=== PATIENT | male | born 2000 | race Caucasian/White ===

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

== ENCOUNTER 2019-02-17 18:46 | Inpatient (IN) | payer OTHER ==
[2019-02-17] MEDS ORDERED: IPRATROPIUM-ALBUTEROL 3 ML NEB INHALATION STA (19:20)
[2019-02-17] MEDS ORDERED: SODIUM CHLORIDE 0.9% 1,000 ML IV STA ×2 (19:20→20:33)
--- NOTE | 2019-02-17 19:31 | ED ---
General Adult HPI - General Source: patient, RN notes reviewed, old records reviewed Mode of arrival: ambulatory Limitations: no limitations <Hilario Christensen - Last Filed: 02/17/19 22:27> <Robert Feliz - Last Filed: 02/17/19 22:44> - General Chief complaint: Upper Respiratory Infection Stated complaint: weakness/coughing Time Seen by Provider: 02/17/19 19:12 - History of Present Illness Initial comments: 18-year-old male patient with past history of cystic fibrosis, diabetes presents ED approximately 3 days of cough. Patient also reports that his blood sugars have been elevated. Patient denies any chest pain or shortness of breath. Patient denies any abdominal pain nausea vomiting or diarrhea. Patient does state that he feels as if he has decreased energy and has had some waxing and waning fevers and chills. Patient denies any other complaints at this time. Systemic: Pt denies fatigue, rash. Pt denies weakness, night sweats, weight loss. Neuro: Pt denies headache, visual disturbances, syncope or pre-syncope. HEENT: Pt denies ocular discharge or irritation, otalgia, rhinorrhea, pharyngitis or notable lymphadenopathy. Cardiopulmonary: Pt denies chest pain, SOB, heart palpitations, dyspnea on exertion. Abdominal/GI: Pt denies abdominal pain, n/v/d. : Pt denies dysuria, burning w/ urination, frequency/urgency. Denies new onset urinary or bowel incontinence. MSK: Pt denies loss of strength or function in extremities. Neuro: Pt denies new onset weakness, paresthesias. (Hilario Christensen) - Related Data Home Medications Medication Instructions Recorded Confirmed Albuterol Inhaler [Ventolin Hfa 2 puff INHALATION RT-Q6H PRN 06/15/15 02/17/19 Inhaler] Budesonide [Pulmicort] 0.25 mg INHALATION RT-DAILY 06/15/15 02/17/19 Insulin Glargine [Lantus] 50 unit SQ HS 06/15/15 02/17/19 Lipase/Protease/Amylase [Joselo Smith 4 cap PO QID 06/15/15 02/17/19 24,000 Units Capsule] Cpt Vest 1 dose PEG/G-TUBE TID 02/17/19 02/17/19 Ergocalciferol [Vitamin D2] 50,000 unit PO WE 02/17/19 02/17/19 Hypertonic Saline 3% Nebuliz 4 ml INHALATION RT-BID 02/17/19 02/17/19 INSULIN LISPRO (HumaLOG) [HumaLOG] See Protocol SQ AC-TID 02/17/19 02/17/19 Allergies Allergy/AdvReac Type Severity Reaction Status Date / Time sulfamethoxazole Allergy Unknown Verified 02/17/19 19:45 [From Bactrim] trimethoprim [From Bactrim] Allergy Unknown Verified 02/17/19 19:45 vancomycin AdvReac Rash/Hives Verified 02/17/19 19:45 Review of Systems ROS Other: All systems not noted in ROS Statement are negative. <Hilario Christensen - Last Filed: 02/17/19 22:27> ROS Other: All systems not noted in ROS Statement are negative. <Robert Feliz - Last Filed: 02/17/19 22:44> ROS Statement: Those systems with pertinent positive or pertinent negative responses have been documented in the HPI. Past Medical History Past Medical History: Diabetes Mellitus Additional Past Medical History / Comment(s): Cystic Fibrosis History of Any Multi-Drug Resistant Organisms: MRSA Date of last positivie culture/infection: 09/24/16 MDRO Source:: Abdominal Fluid Past Surgical History: No Surgical Hx Reported Additional Past Surgical History / Comment(s): feeding tube, port (removed) Past Anesthesia/Blood Transfusion Reactions: No Reported Reaction Past Psychological History: Depression Smoking Status: Never smoker Past Alcohol Use History: None Reported Past Drug Use History: None Reported - Past Family History Father History Unknown: Yes Additional Family Medical History / Comment(s): States that he was adopted, but says that he thinks there isnt any family history on either side. <Hilario Christensen - Last Filed: 02/17/19 22:27> General Exam Limitations: no limitations <Hilario Christensen - Last Filed: 02/17/19 22:27> - General Exam Comments Initial Comments: Constitutional: NAD, AOX3, Pt has pleasant affect. HEENT: NC/AT, trachea midline, neck supple, no lymphadenopathy. Posterior pharynx non erythematous, without exudates. External ears appear normal, without discharge. Mucous membranes moist. Eyes PERRLA, EOM intact. There is no scleral icterus. No pallor noted. Cardiopulmonary: RRR, no murmurs, rubs or gallops, no JVD noted. Lungs CTAB in anterior and posterior barbosa. No peripheral edema. Abdominal exam: Abdomen soft and non-distended. Abdomen non-tender to palpation in all 4 quadrants. Bowel sounds active in LLQ. No hepatosplenomegaly. No ecchymosis Neuro: CN II-XII grossly intact. No nuchal rigidity. No raccon eyes, no nash sign, no hemotympanum. No cervical spinal tenderness. MSK: No posterior calf tenderness bilaterally, homans sign negative bilaterally. Posterior tibialis and radial pulse +2 bilaterally. Sensation intact in upper and lower extremities. Full active ROM in upper and lower extremities, 5/5 str egnth. (Hilario Christensen) Course Vital Signs 02/17/19 02/17/19 02/17/19 18:59 20:15 20:21 Temperature 99.0 F Pulse Rate 128 H 111 H 113 H Respiratory 18 Rate Blood Pressure 106/69 O2 Sat by Pulse 90 L Oximetry 02/17/19 02/17/19 21:21 22:19 Temperature 99.3 F Pulse Rate 111 H 110 H Respiratory 20 20 Rate Blood Pressure 100/79 121/87 O2 Sat by Pulse 93 L 95 Oximetry Procedures - Sepsis Sepsis Focused Exam #1 Time Sepsis Criteria Met: 21:00 Sepsis Focused Exam Date: 02/17/19 Sepsis Focused Exam Time: 22:00 Sepsis Focused Exam Complete: Yes Vital Signs & RN Notes Reviewed: Yes Capillary Refill: < 2 Seconds: Fingers, Toes Peripheral Pulses: Normal: Radial (R), Radial (L) Skin Color: Normal for Patient Respiratory Exam: rhonchi Cardiovascular Exam: tachycardia <Robert Feliz - Last Filed: 02/17/19 22:44> Medical Decision Making - Lab Data Result diagrams: 02/17/19 19:42 02/17/19 19:42 <Hilario Christensen - Last Filed: 02/17/19 22:27> - Lab Data Result diagrams: 02/17/19 19:42 02/17/19 19:42 <Robert Feliz - Last Filed: 02/17/19 22:44> - Medical Decision Making 18-year-old male patient with past history of cystic fibrosis, diabetes presents ED approximately 3 days of cough. Patient also reports that his blood sugars have been elevated. Patient denies any chest pain or shortness of breath. Patient denies any abdominal pain nausea vomiting or diarrhea. Patient does state that he feels as if he has decreased energy and has had some waxing and waning fevers and chills. Patient denies any other complaints at this time. She will signs displayed mild tachycardia, mildly decreased oxygen saturation. Physical exam did not display acute pathology. Laboratory investigations revealed leukocytosis of 15.2. CMP revealed leukocytosis of 268. Anion gap 16. Lactic acidosis of 7.4. Aceone is positive. CXR revealed extensive pulmonary fibrotic changes. Chronic reticular nodular infiltrates not significantly changed. Chronic medial right upper lobe pneumonia not significantly different. Patient likely has mild DKA with sepsis secondary to pneumonia. Blood cultures obtained. Patient was began on IV antibiotics and fluid bolus. Prior to initiation of insulin blood sugar was 84. Patient mild DKA likely resolved with fluid administration and insulin patient injected at home. Anion gap 16. Case discussed in depth with Dr. Feliz, at this time insulin will be discontinued. Pt will be continued on IV abx and IV fluids. Pt admitted to Dr. Oconnor with pulmonology consult. (Hilario Christensen) Patient reevaluated by myself, Dr. Feliz. Patient is resting comfortably in bed and does easily get up out of bed and uses the bathroom without any difficulty. Patient appears nontoxic. Case was discussed in detail with Dr. ventura, who will admit, covering for hospital call. Case was also discussed in detail with Dr. Brown, who will consult. He does recommend cefepime and Zosyn. Patient will be given insulin for probable mild DKA. IV antibiotics have been started. Patient does meet criteria for sepsis diagnosed at 2100. Blood culture and lactic acid and IV antibiotics and fluid bolus of all been ordered. Patient is updated on results and plan (Robert Feliz) - Lab Data Lab Results 02/17/19 02/17/19 02/17/19 Range/Units 19:30 19:42 19:42 WBC 15.2 H (4.0-11.0) k/uL RBC 5.57 (4.30-5.90) m/uL Hgb 14.8 (13.0-17.5) gm/dL Hct 47.0 (39.0-53.0) % MCV 84.4 (80.0-100.0) fL MCH 26.6 (25.0-35.0) pg MCHC 31.6 (31.0-37.0) g/dL RDW 16.6 H (11.5-15.5) % Plt Count 480 H (150-450) k/uL Neutrophils % 75 % Lymphocytes % 21 % Monocytes % 2 % Eosinophils % 0 % Basophils % 0 % Neutrophils # 11.4 H (1.3-7.7) k/uL Lymphocytes # 3.2 (1.0-4.8) k/uL Monocytes # 0.4 (0-1.0) k/uL Eosinophils # 0.1 (0-0.7) k/uL Basophils # 0.0 (0-0.2) k/uL Anisocytosis Slight Sodium 134 L (137-145) mmol/L Potassium 4.3 (3.5-5.1) mmol/L Chloride 97 L (98-107) mmol/L Carbon Dioxide 21 L (22-30) mmol/L Anion Gap 16 mmol/L BUN 12 (9-20) mg/dL Creatinine 0.52 L (0.66-1.25) mg/dL Est GFR (CKD-EPI)AfAm >90 (>60 ml/min/1.73 sqM) Est GFR (CKD-EPI)NonAf >90 (>60 ml/min/1.73 sqM) Glucose 268 H (74-99) mg/dL POC Glucose (mg/dL) 257 H (75-99) mg/dL POC Glu Purchasing/Receiving ID Candy Velasquez Plasma Lactic Acid Cristian (0.7-2.0) mmol/L Calcium 9.7 (8.4-10.2) mg/dL Magnesium 1.8 (1.6-2.3) mg/dL Total Bilirubin 0.3 (0.2-1.3) mg/dL AST 35 (17-59) U/L ALT 31 (21-72) U/L Alkaline Phosphatase 139 H (38-126) U/L Total Protein 7.9 (6.3-8.2) g/dL Albumin 4.1 (3.5-5.0) g/dL Acetone, Qual Positive (Negative) 02/17/19 Range/Units 19:42 WBC (4.0-11.0) k/uL RBC (4.30-5.90) m/uL Hgb (13.0-17.5) gm/dL Hct (39.0-53.0) % MCV (80.0-100.0) fL MCH (25.0-35.0) pg MCHC (31.0-37.0) g/dL RDW (11.5-15.5) % Plt Count (150-450) k/uL Neutrophils % % Lymphocytes % % Monocytes % % Eosinophils % % Basophils % % Neutrophils # (1.3-7.7) k/uL Lymphocytes # (1.0-4.8) k/uL Monocytes # (0-1.0) k/uL Eosinophils # (0-0.7) k/uL Basophils # (0-0.2) k/uL Anisocytosis Sodium (137-145) mmol/L Potassium (3.5-5.1) mmol/L Chloride (98-107) mmol/L Carbon Dioxide (22-30) mmol/L Anion Gap mmol/L BUN (9-20) mg/dL Creatinine (0.66-1.25) mg/dL Est GFR (CKD-EPI)AfAm (>60 ml/min/1.73 sqM) Est GFR (CKD-EPI)NonAf (>60 ml/min/1.73 sqM) Glucose (74-99) mg/dL POC Glucose (mg/dL) (75-99) mg/dL POC Glu Purchasing/Receiving ID Plasma Lactic Acid Cristian 7.4 H* (0.7-2.0) mmol/L Calcium (8.4-10.2) mg/dL Magnesium (1.6-2.3) mg/dL Total Bilirubin (0.2-1.3) mg/dL AST (17-59) U/L ALT (21-72) U/L Alkaline Phosphatase (38-126) U/L Total Protein (6.3-8.2) g/dL Albumin (3.5-5.0) g/dL Acetone, Qual (Negative) Critical Care Time Critical Care Time: Yes Total Critical Care Time: 31 <Hilario Christensen - Last Filed: 02/17/19 22:27> Disposition Is patient prescribed a controlled substance at d/c from ED?: No <Hilario Christensen - Last Filed: 02/17/19 22:27> <Robert Feliz - Last Filed: 02/17/19 22:44> Clinical Impression: Sepsis, DKA (diabetic ketoacidoses), Pneumonia Disposition: ADMITTED IP TO THIS HOSP Condition: Serious
[2019-02-17 19:32] LABS: Glucose,Whole Blood 257 mg/dL (75-99)
[2019-02-17 19:55] LABS: Anisocytosis Slight; Basophils % (A) 0 %; Eosinophils # (A) 0.1 k/uL (0-0.7); Eosinophils % (A) 0 %; HGB 14.8 gm/dL (13.0-17.5); Lymphocytes # (A) 3.2 k/uL (1.0-4.8); Lymphocytes % (A) 21 %; MCH 26.6 pg (25.0-35.0); MCHC 31.6 g/dL (31.0-37.0); MCV 84.4 fL (80.0-100.0); Mean Platelet Volume 6.5; Monocytes # (A) 0.4 k/uL (0-1.0); Monocytes % (A) 2 %; Neutrophils # (A) 11.4 k/uL (1.3-7.7); Neutrophils % (A) 75 %; Platelet Count 480 k/uL (150-450); RBC 5.57 m/uL (4.30-5.90); RDW 16.6 % (11.5-15.5); WBC 15.2 k/uL (4.0-11.0)
[2019-02-17 20:08] LABS: ALT 31 U/L (21-72); AST 35 U/L (17-59); African American GFR (CKD) >90 (>60 ml/min/1.73 sqM); Albumin 4.1 g/dL (3.5-5.0); Alkaline Phosphatase 139 U/L (38-126); Anion Gap 16 mmol/L; Blood Urea Nitrogen 12 mg/dL (9-20); Calcium 9.7 mg/dL (8.4-10.2); Carbon Dioxide 21 mmol/L (22-30); Chloride 97 mmol/L (98-107); Glucose 268 mg/dL (74-99); Magnesium 1.8 mg/dL (1.6-2.3); Potassium 4.3 mmol/L (3.5-5.1); Sodium 134 mmol/L (137-145); Total Bilirubin 0.3 mg/dL (0.2-1.3); Total Protein 7.9 g/dL (6.3-8.2)
--- NOTE | 2019-02-17 20:14 | XR ---
EXAMINATION TYPE: XR chest 2V DATE OF EXAM: 02/17/2019 COMPARISON: 01/22/2017 HISTORY: Cough and weakness TECHNIQUE: Frontal and lateral views of the chest are obtained. FINDINGS: Heart is normal. There is coarse interstitial density throughout the lungs. There is some coalescent density medial right upper lobe. There is no pleural effusion. Bony thorax is intact. IMPRESSION: Extensive pulmonary fibrotic changes. Chronic reticular nodular infiltrates not signific antly different than last exam. Chronic medial right upper lobe pneumonia not significantly different .
[2019-02-17] MEDS ORDERED: Magnesium Replacement Protocol 1 EACH MISC MISCELLANE PRN (20:28)
[2019-02-17] MEDS ORDERED: Potassium Replacement Protocol 1 EACH MISC MISCELLANE PRN (20:28)
[2019-02-17] MEDS ORDERED: INSULIN REGULAR 100 UNIT in SODIUM CHLORIDE 0.9% 100 ML IV SCH (20:30)
[2019-02-17] MEDS ORDERED: LEVOFLOXACIN 750MG-D5W PMX 750 MG in DEXTROSE/WATER 1 150ML.BAG IVPB SCH (20:45)
[2019-02-17] MEDS ORDERED: PIPERACILLIN-TAZOBACTAM 3.375 GM in SODIUM CHLORIDE 0.9% 100 ML IVPB SCH (20:45)
[2019-02-17] MEDS ORDERED: CEFEPIME 2 GM in SODIUM CHLORIDE 0.9% 100 ML IVPB STA (20:59)
[2019-02-17 21:10] LABS: Glucose,Whole Blood 87 mg/dL (75-99)
[2019-02-17] MEDS: SODIUM CHLORIDE 0.9% 1,000 ML IV SCH ×2 (21:11→21:16)
[2019-02-17 21:15] LABS: VBG PH 7.42 (7.31-7.41)
[2019-02-17] MEDS ORDERED: SODIUM CHLORIDE 0.9% 1,000 ML IV SCH (21:15)
[2019-02-17] MEDS ORDERED: D5-0.45% NACL WITH KCL 20MEQ/L 1,000 ML IV SCH (21:15)
[2019-02-17 22:07] LABS: Glucose,Whole Blood 69 mg/dL (75-99)
[2019-02-17 22:44] LABS: Glucose,Whole Blood 103 mg/dL (75-99)
[2019-02-17 23:32] LABS: Glucose,Whole Blood 143 mg/dL (75-99)
[2019-02-18 00:42] LABS: Glucose,Whole Blood 209 mg/dL (75-99)
[2019-02-18] MEDS: PIPERACILLIN-TAZOBACTAM 3.375 GM in SODIUM CHLORIDE 0.9% 100 ML IVPB SCH ×3 (01:14→16:52)
[2019-02-18] MEDS: SODIUM CHLORIDE 0.9% 1,000 ML IV SCH ×2 (01:14→12:22)
[2019-02-18 01:15] LABS: African American GFR (CKD) >90 (>60 ml/min/1.73 sqM); Anion Gap 7 mmol/L; Blood Urea Nitrogen 13 mg/dL (9-20); Carbon Dioxide 27 mmol/L (22-30); Chloride 102 mmol/L (98-107); Glucose 219 mg/dL (74-99); Potassium 4.3 mmol/L (3.5-5.1); Sodium 136 mmol/L (137-145)
[2019-02-18] MEDS: INSULIN DETEMIR (LEVEMIR) 100 UNIT/ML SYR SQ SCH ×2 (01:28→21:04)
--- NOTE | 2019-02-18 01:49 | P.HPIM ---
History of Present Illness H&P Date: 02/18/19 The patient is a 18-year-old male with a past medical history of cystic fibrosis and diabetes mellitus who presented to the ED for 3 days of gradually worsening cough productive of green/yellow phlegm. The patient reports that he moved from [place] (where he has lived most of his life) to [place] one week ago, and has recently been noncompliant with his medications since he does not have insur ance and has been unable to obtain them. He states that he used to follow at [facility] in [place]. The patient however does report compliance to his insulin since he received in the mail. He otherwise denies chest pain, shortness of breath, fever, or chills. He further denied abdominal pain, nausea, vomiting, or diarrhea. The patient underwent an extensive evaluation in the ED with a chest x-ray showing pulmonary fibrotic changes along with chronic reticular nodular infiltrates. Laboratory evaluation revealed a lactate of 7.4, leukocytosis of 15.2, hemoglobin 14.8, sodium 134, creatinine 0.52, glucose 268, and acetone positive. He was initially started on a insulin infusion and was given IV antibiotics and is being admitted to the medicine service for further management. Review of Systems Pertinent positives and negatives as discussed in HPI, a complete review of systems was performed and all other systems are negative. Past Medical History Past Medical History: Diabetes Mellitus Additional Past Medical History / Comment(s): Cystic Fibrosis History of Any Multi-Drug Resistant Organisms: MRSA Date of last positivie culture/infection: 09/24/16 MDRO Source:: Abdominal Fluid Past Surgical History: No Surgical Hx Reported Additional Past Surgical History / Comment(s): feeding tube, port (removed) Past Anesthesia/Blood Transfusion Reactions: No Reported Reaction Past Psychological History: Depression Additional Psychological History / Comment(s): Lives with friends. Smoking Status: Never smoker Past Alcohol Use History: None Reported Past Drug Use History: None Reported - Past Family History Father History Unknown: Yes Additional Family Medical History / Comment(s): States that he was adopted, but says that he thinks there isnt any family history on either side. Medications and Allergies Home Medications Medication Instructions Recorded Confirmed Type Albuterol Inhaler [Ventolin Hfa 2 puff INHALATION RT-Q6H PRN 06/15/15 02/17/19 History Inhaler] Budesonide [Pulmicort] 0.25 mg INHALATION RT-DAILY 06/15/15 02/17/19 History Insulin Glargine [Lantus] 50 unit SQ HS 06/15/15 02/17/19 History Lipase/Protease/Amylase [Joselo Dr 4 cap PO QID 06/15/15 02/17/19 History 24,000 Units Capsule] Cpt Vest 1 dose PEG/G-TUBE TID 02/17/19 02/17/19 History Ergocalciferol [Vitamin D2] 50,000 unit PO WE 02/17/19 02/17/19 History Hypertonic Saline 3% Nebuliz 4 ml INHALATION RT-BID 02/17/19 02/17/19 History INSULIN LISPRO (HumaLOG) [HumaLOG] See Protocol SQ AC-TID 02/17/19 02/17/19 History Non-Formulary Drug [Non Formulary 1 each PO ONCE 02/18/19 02/18/19 History Drug] Allergies Allergy/AdvReac Type Severity Reaction Status Date / Time sulfamethoxazole Allergy Unknown Verified 02/17/19 19:45 [From Bactrim] trimethoprim [From Bactrim] Allergy Unknown Verified 02/17/19 19:45 vancomycin AdvReac Rash/Hives Verified 02/17/19 19:45 Physical Exam Vitals: Vital Signs Temp Pulse Pulse Resp BP BP Pulse Ox 02/18/19 00:00 98.7 F 109 H 18 107/75 91 L 02/17/19 22:19 110 H 20 121/87 95 02/17/19 21:21 99.3 F 111 H 20 100/79 93 L 02/17/19 20:21 113 H 02/17/19 20:15 111 H 02/17/19 18:59 99.0 F 128 H 18 106/69 90 L Intake and Output 02/17/19 02/17/19 02/18/19 14:59 22:59 06:59 Intake Total 240 Balance 240 Intake: Oral 240 Other: Weight 51.256 kg General: non toxic, no distress, appears at stated age, underweight Derm: no unusual rashes/lesions no unusual ecchymoses, warm, dry Head: atraumatic, normocephalic, symmetric Eyes: EOMI, no lid lag, anicteric sclera, pupils equal round reactive to light ENT: Nose and ears atraumatic, no thrush, no pharyngeal erythema Neck: No thyromegaly, no cervical lymphadenopathy, trachea midline, supple Mouth: no lip lesion, mucus membranes moist Cardiovascular: S1S2 reg, no murmur, positive posterior tibial pulse bilateral, no edema, capillary refill less than 2 seconds Lungs: Bilateral scattered rhonchi with coarse breath sounds, no rales, no acces bulmaro muscle use Abdominal: soft, nontender to palpation, no guarding, no appreciable organomegaly, normal bowel sounds Ext: no gross muscle atrophy, muscle strength 5 out of 5 in all 4 extremities g rossly, no contractures, Neuro: CN II-XI grossly intact, light touch intact all 4 extremities, finger to nose within normal limits, Psych: Alert, oriented, appropriate affect Results CBC & Chem 7: 02/17/19 19:42 02/18/19 00:31 Labs: Abnormal Lab Results - Last 24 Hours (Table) 02/17/19 02/17/19 02/17/19 Range/Units 19:30 19:42 19:42 WBC 15.2 H (4.0-11.0) k/uL RDW 16.6 H (11.5-15.5) % Plt Count 480 H (150-450) k/uL Neutrophils # 11.4 H (1.3-7.7) k/uL VBG pH (7.31-7.41) Sodium 134 L (137-145) mmol/L Chloride 97 L (98-107) mmol/L Carbon Dioxide 21 L (22-30) mmol/L Creatinine 0.52 L (0.66-1.25) mg/dL Glucose 268 H (74-99) mg/dL POC Glucose (mg/dL) 257 H (75-99) mg/dL Plasma Lactic Acid Rcistian (0.7-2.0) mmol/L Alkaline Phosphatase 139 H (38-126) U/L 02/17/19 02/17/19 02/17/19 Range/Units 19:42 21:05 22:00 WBC (4.0-11.0) k/uL RDW (11.5-15.5) % Plt Count (150-450) k/uL Neutrophils # (1.3-7.7) k/uL VBG pH 7.42 H (7.31-7.41) Sodium (137-145) mmol/L Chloride (98-107) mmol/L Carbon Dioxide (22-30) mmol/L Creatinine (0.66-1.25) mg/dL Glucose (74-99) mg/dL POC Glucose (mg/dL) (75-99) mg/dL Plasma Lactic Acid Cristian 7.4 H* 2.3 H* (0.7-2.0) mmol/L Alkaline Phosphatase (38-126) U/L 02/17/19 02/17/19 02/17/19 Range/Units 22:04 22:42 23:22 WBC (4.0-11.0) k/uL RDW (11.5-15.5) % Plt Count (150-450) k/uL Neutrophils # (1.3-7.7) k/uL VBG pH (7.31-7.41) Sodium (137-145) mmol/L Chloride (98-107) mmol/L Carbon Dioxide (22-30) mmol/L Creatinine (0.66-1.25) mg/dL Glucose (74-99) mg/dL POC Glucose (mg/dL) 69 L 103 H 143 H (75-99) mg/dL Plasma Lactic Acid Cristian (0.7-2.0) mmol/L Alkaline Phosphatase (38-126) U/L 02/17/19 02/18/19 02/18/19 Range/Units 23:54 00:31 00:32 WBC (4.0-11.0) k/uL RDW (11.5-15.5) % Plt Count (150-450) k/uL Neutrophils # (1.3-7.7) k/uL VBG pH (7.31-7.41) Sodium 136 L (137-145) mmol/L Chloride (98-107) mmol/L Carbon Dioxide (22-30) mmol/L Creatinine 0.62 L (0.66-1.25) mg/dL Glucose 219 H (74-99) mg/dL POC Glucose (mg/dL) 209 H (75-99) mg/dL Plasma Lactic Acid Cristian 2.7 H* (0.7-2.0) mmol/L Alkaline Phosphatase (38-126) U/L Thrombosis Risk Factor Assmnt - Choose All That Apply Other Risk Factors: Yes (history of blood clot by port access) Assessment and Plan Plan: Sepsis secondary to pneumonia in setting of cystic fibrosis -Continue with cefepime and zosyn -Continue with IV fluids 100 mL an hour -Pulmonary consulted -Continue with DuoNeb's -Supplemental oxygen -F/u blood cultures Diabetes mellitus, DKA now resolved -Continue with Lantus 40 units (takes 50 units at home) -Blood glucose monitoring -Lispro sliding scale Elevated lactate -Continue with IV fluids -Monitor for resolution Underweight -Spindle Tester consult DVT prophylaxis -Lovenox The patient is admitted with an anticipated greater than 2 midnight stay for evaluation of sepsis from pneumonia. CODE STATUS:full code Discussed with: patient Anticipated discharge date: 02/20/[address]: Home A total of 45 minutes was spent on the care of this complex patient more than 50% of the time was spent in counseling and care coordination.
[2019-02-18 04:37] LABS: African American GFR (CKD) >90 (>60 ml/min/1.73 sqM); Anion Gap 6 mmol/L; Blood Urea Nitrogen 13 mg/dL (9-20); Carbon Dioxide 26 mmol/L (22-30); Chloride 106 mmol/L (98-107); Glucose 102 mg/dL (74-99); Potassium 3.9 mmol/L (3.5-5.1); Sodium 138 mmol/L (137-145)
[2019-02-18] MEDS: IPRATROPIUM-ALBUTEROL 3 ML NEB INHALATION SCH ×6 (04:47→23:29)
[2019-02-18 06:24] LABS: Glucose,Whole Blood 55 mg/dL (75-99)
[2019-02-18 06:41] LABS: Glucose,Whole Blood 81 mg/dL (75-99)
[2019-02-18] MEDS: BUDESONIDE 0.25 MG/2 ML NEBU INHALATION SCH (07:51)
[2019-02-18] MEDS: INSULIN ASPART (NovoLOG) 100 UNIT/ML VIAL SQ SCH ×4 (08:47→21:03)
[2019-02-18] MEDS: CEFEPIME 1 GM in SODIUM CHLORIDE 0.9% 50 ML IVPB SCH ×2 (11:01→21:07)
[2019-02-18] MEDS: ENOXAPARIN 30 MG/0.3 ML SYRINGE SQ SCH (11:02)
[2019-02-18] MEDS: LIPASE PO SCH ×4 (11:06→21:09)
[2019-02-18] MEDS: AMYLASE PO SCH ×4 (11:06→21:09)
[2019-02-18] MEDS: PROTEASE PO SCH ×4 (11:06→21:09)
[2019-02-18 11:09] LABS: Glucose,Whole Blood 206 mg/dL (75-99)
[2019-02-18 11:52] VITALS: BMI 18.1
--- NOTE | 2019-02-18 14:13 | P.PN ---
Subjective Progress Note Date: 02/18/19 Patient doing well seen and examined at bedside, reports that shortness of breath is improved. Reports he takes Lantus 50 units subcu daily at bedtime, recently moved from [place], does not have a PCP provider in the area but reports he has at least 3-4 refills of his insulin. No acute events overnight initial leukocytosis of 15.2 Objective - Vital Signs Vital signs: Vital Signs Temp 98.0 F 02/18/19 09:09 Pulse 97 02/18/19 11:25 Resp 18 02/18/19 09:09 BP 105/69 02/18/19 09:09 Pulse Ox 97 02/18/19 09:09 Intake & Output 02/17/19 02/18/19 02/18/19 18:59 06:59 18:59 Intake Total 240 240 Balance 240 240 Weight 51.256 kg 52.5 kg 52.5 kg Intake: Oral 240 240 - Exam Constitutional: No acute distress, conversant, pleasant Eyes: Anicteric sclerae, moist conjunctiva, no lid-lag, PERRLA ENMT: NC/AT,Oropharynx clear, no erythema, exudates Neck:Supple, FROM, no masses, or JVD, No carotid bruits; No thyromegaly Lungs: Bilateral scattered rhonchi and crackles, diminished in the bases Cardiovascular: Heart regular in rate and rhythm, No murmurs, gallops, or rubs no peripheral edema Abdominal: Soft Nontender, nom distended, no guarding, no rebound or rigidity, Normoactive bowel sounds No hepatomegaly, No splenomegaly, No palpable mass No abdominal wall hernia noted Skin: Normal temperature, tone, texture, turgor, No induration No subcutaneous nodules, No rash, lesions, No ulcers Extremities:No digital cyanosis No clubbing, Pedal pulses intact and symmetrical Radial pulses intact and symmetrical Normal gait and station, No calf tenderness Psychiatric: Alert and oriented to person, place and time, Appropriate affect Intact judgement Neuro: Muscles Strength 5/5 in all 4 extremities, Sensation to light touch grossly present throughout, Cranial nerves II-XII grossly intact. No focal sensory deficits - Labs CBC & Chem 7: 02/17/19 19:42 02/18/19 04:16 Labs: Abnormal Lab Results - Last 24 Hours (Table) 02/17/19 02/17/19 02/17/19 Range/Units 19:30 19:42 19:42 WBC 15.2 H (4.0-11.0) k/uL RDW 16.6 H (11.5-15.5) % Plt Count 480 H (150-450) k/uL Neutrophils # 11.4 H (1.3-7.7) k/uL VBG pH (7.31-7.41) Sodium 134 L (137-145) mmol/L Chloride 97 L (98-107) mmol/L Carbon Dioxide 21 L (22-30) mmol/L Creatinine 0.52 L (0.66-1.25) mg/dL Glucose 268 H (74-99) mg/dL POC Glucose (mg/dL) 257 H (75-99) mg/dL Plasma Lactic Acid Cristian (0.7-2.0) mmol/L Alkaline Phosphatase 139 H (38-126) U/L 02/17/19 02/17/19 02/17/19 Range/Units 19:42 21:05 22:00 WBC (4.0-11.0) k/uL RDW (11.5-15.5) % Plt Count (150-450) k/uL Neutrophils # (1.3-7.7) k/uL VBG pH 7.42 H (7.31-7.41) Sodium (137-145) mmol/L Chloride (98-107) mmol/L Carbon Dioxide (22-30) mmol/L Creatinine (0.66-1.25) mg/dL Glucose (74-99) mg/dL POC Glucose (mg/dL) (75-99) mg/dL Plasma Lactic Acid Cristian 7.4 H* 2.3 H* (0.7-2.0) mmol/L Alkaline Phosphatase (38-126) U/L 02/17/19 02/17/19 02/17/19 Range/Units 22:04 22:42 23:22 WBC (4.0-11.0) k/uL RDW (11.5-15.5) % Plt Count (150-450) k/uL Neutrophils # (1.3-7.7) k/uL VBG pH (7.31-7.41) Sodium (137-145) mmol/L Chloride (98-107) mmol/L Carbon Dioxide (22-30) mmol/L Creatinine (0.66-1.25) mg/dL Glucose (74-99) mg/dL POC Glucose (mg/dL) 69 L 103 H 143 H (75-99) mg/dL Plasma Lactic Acid Cristian (0.7-2.0) mmol/L Alkaline Phosphatase (38-126) U/L 02/17/19 02/18/19 02/18/19 Range/Units 23:54 00:31 00:32 WBC (4.0-11.0) k/uL RDW (11.5-15.5) % Plt Count (150-450) k/uL Neutrophils # (1.3-7.7) k/uL VBG pH (7.31-7.41) Sodium 136 L (137-145) mmol/L Chloride (98-107) mmol/L Carbon Dioxide (22-30) mmol/L Creatinine 0.62 L (0.66-1.25) mg/dL Glucose 219 H (74-99) mg/dL POC Glucose (mg/dL) 209 H (75-99) mg/dL Plasma Lactic Acid Cristian 2.7 H* (0.7-2.0) mmol/L Alkaline Phosphatase (38-126) U/L 02/18/19 02/18/19 02/18/19 Range/Units 04:16 06:22 11:08 WBC (4.0-11.0) k/uL RDW (11.5-15.5) % Plt Count (150-450) k/uL Neutrophils # (1.3-7.7) k/uL VBG pH (7.31-7.41) Sodium (137-145) mmol/L Chloride (98-107) mmol/L Carbon Dioxide (22-30) mmol/L Creatinine 0.57 L (0.66-1.25) mg/dL Glucose 102 H (74-99) mg/dL POC Glucose (mg/dL) 55 L 206 H (75-99) mg/dL Plasma Lactic Acid Cristian (0.7-2.0) mmol/L Alkaline Phosphatase (38-126) U/L Assessment and Plan Plan: Sepsis secondary to pneumonia in setting of cystic fibrosis -Continue with cefepime and zosyn -Continue with IV fluids 100 mL an hour -Pulmonary consulted -Continue with DuoNeb's -Supplemental oxygen -F/u blood cultures Diabetes mellitus, DKA now resolved -Continue with Lantus 40 units (takes 50 units at home) -Blood glucose monitoring -Lispro sliding scale Elevated lactate -Continue with IV fluids -Monitor for resolution Underweight -Pharmacy Services Representative consult DVT prophylaxis -Lovenox
--- NOTE | 2019-02-18 16:01 | P.CNPUL ---
History of Present Illness Consult date: 02/18/19 Requesting physician: David Marino Reason for consult: dyspnea Chief complaint: 3 day history of cough and congestion and elevated blood sugars History of present illness: This is a very pleasant 18-year-old gentleman with a known history of cystic fibrosis, diabetes mellitus, MRSA and abdominal fluid in 2017, PEG tube, depression. He has recently moved back here to [place] from [place]. He had been without some of his medications but states he has most of them now. He has been maintained on Creon, Lantus, Pulmicort and albuterol. He also has a CPT vest. He was seen by our group back in 2017 here during an admission for DKA. He presented here to the emergency room yesterday after having a 3 day history of increasing shortness of breath productive cough of green-yellow sputum and elevated blood sugars. Chest x-ray shows extensive pulmonary fibrotic changes. Chronic reticular nodular infiltrates. Chronic medial right upper lobe density as compared to previous in 2017. He was tachycardic. Temp 99.3. Oxygen 90% on room air. White count 15.2. Hemoglobin 14.8. Creatinine 0.52. Glucose 268. Acetone positive. Lactic acid 2.7. Down to 2.0. He is seen today in consul tation on the regular medical floor. He is currently awake and alert in no acute distress. He is comfortable at rest. Dyspneic with minimal exertion. He's been initiated on cefepime and Zosyn, DuoNeb inhalations, Pulmicort inhalations, Pulmozyme, Creon has been resumed. Review of Systems REVIEW OF SYSTEMS: CONSTITUTIONAL: Denies any recent significant weight loss or weight gain. EYES: Denies change in vision. EARS, NOSE, MOUTH, THROAT: Denies headaches, denies sore throat. CARDIOVASCULAR: Denies chest pain, palpitations or syncopal episodes. RESPIRATORY: Positive for shortness of breath, cough, congestion no hemoptysis. GASTROINTESTINAL: Denies change in appetite, denies abdominal pain GENITOURINARY: Denies hematuria, denies infections. MUSKULOSKELETAL: Denies pain, denies swelling. INTEGUMENTARY: Denies rash, denies eczema. NEUROLOGICAL: Denies recent memory loss, no recent seizure activity. PSYCHIATRIC: Denies anxiety, denies depression. HEMATOLOGIC/LYMPHATIC: Denies anemia, denies enlarged lymph nodes. Past Medical History Past Medical History: Diabetes Mellitus Additional Past Medical History / Comment(s): Cystic Fibrosis History of Any Multi-Drug Resistant Organisms: MRSA Date of last positivie culture/infection: 09/24/16 MDRO Source:: Abdominal Fluid Past Surgical History: No Surgical Hx Reported Additional Past Surgical History / Comment(s): feeding tube, port (removed) Past Anesthesia/Blood Transfusion Reactions: No Reported Reaction Past Psychological History: Depression Additional Psychological History / Comment(s): Lives with friends. Smoking Status: Never smoker Past Alcohol Use History: None Reported Past Drug Use History: None Reported - Past Family History Father History Unknown: Yes Additional Family Medical History / Comment(s): States that he was adopted, but says that he thinks there isnt any family history on either side. Medications and Allergies Home Medications Medication Instructions Recorded Confirmed Type Albuterol Inhaler [Ventolin Hfa 2 puff INHALATION RT-Q6H PRN 06/15/15 02/17/19 History Inhaler] Budesonide [Pulmicort] 0.25 mg INHALATION RT-DAILY 06/15/15 02/17/19 History Insulin Glargine [Lantus] 50 unit SQ HS 06/15/15 02/17/19 History Lipase/Protease/Amylase [Creon Dr 4 cap PO QID 06/15/15 02/17/19 History 24,000 Units Capsule] Cpt Vest 1 dose PEG/G-TUBE TID 02/17/19 02/17/19 History Ergocalciferol [Vitamin D2] 50,000 unit PO WE 02/17/19 02/17/19 History Hypertonic Saline 3% Nebuliz 4 ml INHALATION RT-BID 02/17/19 02/17/19 History INSULIN LISPRO (HumaLOG) [HumaLOG] See Protocol SQ AC-TID 02/17/19 02/17/19 History Non-Formulary Drug [Non Formulary 1 each PO ONCE 02/18/19 02/18/19 History Drug] Allergies Allergy/AdvReac Type Severity Reaction Status Date / Time sulfamethoxazole Allergy Unknown Verified 02/17/19 19:45 [From Bactrim] trimethoprim [From Bactrim] Allergy Unknown Verified 02/17/19 19:45 vancomycin AdvReac Rash/Hives Verified 02/17/19 19:45 Physical Exam Vitals: Vital Signs Temp Pulse Pulse Pulse Resp BP BP 02/18/19 14:17 18 02/18/19 13:20 98.9 F 111 H 16 113/71 02/18/19 11:25 97 02/18/19 11:16 83 02/18/19 09:09 98.0 F 99 16 105/69 02/18/19 08:02 104 H 02/18/19 07:51 88 02/18/19 04:57 110 H 02/18/19 04:48 110 H 02/18/19 04:00 97.9 F 88 18 99/63 02/18/19 00:00 98.7 F 109 H 18 107/75 02/17/19 22:19 110 H 20 121/87 02/17/19 21:21 99.3 F 111 H 20 100/79 02/17/19 20:21 113 H 02/17/19 20:15 111 H 02/17/19 18:59 99.0 F 128 H 18 106/69 Pulse Ox 02/18/19 14:17 02/18/19 13:20 91 L 02/18/19 11:25 02/18/19 11:16 02/18/19 09:09 97 02/18/19 08:02 02/18/19 07:51 95 02/18/19 04:57 02/18/19 04:48 02/18/19 04:00 94 L 02/18/19 00:00 91 L 02/17/19 22:19 95 02/17/19 21:21 93 L 02/17/19 20:21 02/17/19 20:15 02/17/19 18:59 90 L Intake and Output 02/18/19 02/18/19 02/18/19 06:59 14:59 22:59 Intake Total 240 Balance 240 Intake: Oral 240 Other: # Voids 2 Weight 52.5 kg 52.5 kg GENERAL EXAM: Pleasant thin 18-year-old gentleman currently comfortable in no apparent distress. On 2 L nasal cannula. HEAD: Normocephalic. EYES: Normal reaction of pupils, equal size. NOSE: Clear with pink turbinates. THROAT: No erythema or exudates. NECK: No masses, no JVD. CHEST: No chest wall deformity. LUNGS: Equal air entry with bilateral scattered rhonchi, crackles, diminished. CVS: S1 and S2 normal with no audible murmur, regular rhythm. ABDOMEN: PEG tube exit site is clean and dry. No hepatosplenomegaly, normal bowel sounds, no guarding or rigidity. SPINE: No scoliosis or deformity SKIN: No rashes CENTRAL NERVOUS SYSTEM: No focal deficits, tone is normal in all 4 extremities. EXTREMITIES: There is no peripheral edema. No clubbing, no cyanosis. Peripheral pulses are intact. Results - Laboratory Findings CBC and BMP: 02/17/19 19:42 02/18/19 04:16 Abnormal lab findings: Abnormal Labs 02/17/19 02/17/19 02/17/19 19:30 19:42 19:42 WBC 15.2 H RDW 16.6 H Plt Count 480 H Neutrophils # 11.4 H VBG pH Sodium 134 L Chloride 97 L Carbon Dioxide 21 L Creatinine 0.52 L Glucose 268 H POC Glucose (mg/dL) 257 H Plasma Lactic Acid Cristian Alkaline Phosphatase 139 H 02/17/19 02/17/19 02/17/19 19:42 21:05 22:00 WBC RDW Plt Count Neutrophils # VBG pH 7.42 H Sodium Chloride Carbon Dioxide Creatinine Glucose POC Glucose (mg/dL) Plasma Lactic Acid Cristian 7.4 H* 2.3 H* Alkaline Phosphatase 02/17/19 02/17/19 02/17/19 22:04 22:42 23:22 WBC RDW Plt Count Neutrophils # VBG pH Sodium Chloride Carbon Dioxide Creatinine Glucose POC Glucose (mg/dL) 69 L 103 H 143 H Plasma Lactic Acid Cristian Alkaline Phosphatase 02/17/19 02/18/19 02/18/19 23:54 00:31 00:32 WBC RDW Plt Count Neutrophils # VBG pH Sodium 136 L Chloride Carbon Dioxide Creatinine 0.62 L Glucose 219 H POC Glucose (mg/dL) 209 H Plasma Lactic Acid Cristian 2.7 H* Alkaline Phosphatase 02/18/19 02/18/19 02/18/19 04:16 06:22 11:08 WBC RDW Plt Count Neutrophils # VBG pH Sodium Chloride Carbon Dioxide Creatinine 0.57 L Glucose 102 H POC Glucose (mg/dL) 55 L 206 H Plasma Lactic Acid Cristian Alkaline Phosphatase - Diagnostic Findings Chest x-ray: image reviewed Assessment and Plan Assessment: Impression: #1 Acute hypoxic respiratory failure secondary to extensive fibrotic changes and nodular infiltrate secondary to cystic fibrosis with a chronic medial right upper lobe density. #2 Cystic fibrosis. #3 Diabetes mellitus insulin-dependent. #4 Malnutrition status post PEG tube insertion. #5 History of MRSA in abdominal wall near PEG tube site in 2017 #6 Chronic pancreatic insufficiency. Plan: The patient was seen and evaluated by Dr. Brown. Chest x-ray and labs reviewed. We'll continue with Zosyn and cefepime for now. Continue bronchodilators. Chest physiotherapy. We will increase his activity as tolerated. We'll continue to follow and make further recommendations based on his clinical status. I, the cosigning physician, performed a history & physical examination of the patient. Lungs sounds with bilateral scattered rhonchi. Maintaining good O2 saturations in the 90s on 2 L/m per nasal cannula. I discussed the assessment and plan of care with my nurse practitioner, Evette Adkins. I attest to the above note as dictated by her. Time with Patient: Greater than 30
[2019-02-18] MEDS: DORNASE ALFA 1 MG/ML 2.5 ML AMP INHALATION SCH (16:41)
[2019-02-18 17:17] LABS: Glucose,Whole Blood 273 mg/dL (75-99)
[2019-02-18 20:27] LABS: Glucose,Whole Blood 284 mg/dL (75-99)
[2019-02-18] MEDS: LINEZOLID 600 MG in DEXTROSE/WATER 1 300ML.BAG IVPB SCH (21:48)
[2019-02-18 23:37] LABS: Appearance,Urine Clear (Clear); Bilirubin,Urine Negative (Negative); Blood,Urine Negative (Negative); Color,Urine Colorless; Glucose,Urine (UA) 4+ (Negative); Ketones,Urine Negative (Negative); Leukocyte Esterase,Urine Negative (Negative); Nitrite,Urine Negative (Negative); PH, Urine 7.5 (5.0-8.0); Protein,Urine Negative (Negative); Specific Gravity,Urine 1.012 (1.001-1.035); Urobilinogen,Urine <2.0 mg/dL (<2.0)
[2019-02-19] MEDS: PIPERACILLIN-TAZOBACTAM 3.375 GM in SODIUM CHLORIDE 0.9% 100 ML IVPB SCH ×3 (00:06→15:48)
[2019-02-19] MEDS: SODIUM CHLORIDE 0.9% 1,000 ML IV SCH ×3 (00:11→18:07)
--- NOTE | 2019-02-19 00:45 | P.CONS ---
History of Present Illness - Reason for Consult Consult date: 02/18/19 - Chief Complaint shortness of breath - History of Present Illness 1o-year-old male with cystic fibrosis presents to hospital with increasing shortness of breath. The patient had moved out of her area for some time receiving his care in [place] where he was residing. He preferred resume intensely moved back however did not have reestablishment of active care. He has some increasing shortness of breath and constantly presented hospital was admitted for further intervention. The patient does have significant cough that is thick and tenacious. He has some sputum production. No hemoptysis. Feels poorly overall. He is not having fevers or chills. He does take pancreatic jeronimo pplements to help him with his meals and struggles with maintaining his weight. Review of Systems HEENT:Denies headache or acute visual change. Denies sinus or mouth disco mforts. Denies neck stiffness or pain. Denies significant oral cavity pain. Denies difficulty on swallowing. Lungs: complains of shortness of breath cou Cardiovascular: has ongoing shortness of breath; but denies chest pain, chest wall pain, orthopnea, or syncope.does have dyspnea with exertion Gastrointestinal:Denies nausea, vomiting, diarrhea, constipation, hematemesis, melena, hematochezia. No no significant change of bowel habit noticed. Musculoskeletal: denies significant myalgias or arthralgias. No new joint swelling. Denies new back pain. Skin: Denies new rash or lesions. No new ulcers or wounds are related.. Neuro: Denies headache or visual change. Denies any new onset weakness or difficulty with ambulation. Denies falls or seizures. Psychiatric:Denies anxiety or depression. Endocrine: Denies significant fatigue, denies significant weight loss or weight gain. Past Medical History Past Medical History: Diabetes Mellitus Additional Past Medical History / Comment(s): Cystic Fibrosis History of Any Multi-Drug Resistant Organisms: MRSA Year Discovered:: 09/24/16 MDRO Source:: Abdominal Fluid Past Surgical History: No Surgical Hx Reported Additional Past Surgical History / Comment(s): feeding tube, port (removed) Past Anesthesia/Blood Transfusion Reactions: No Reported Reaction Past Psychological History: Depression Additional Psychological History / Comment(s): Lives with friends. single. no children. No tobacco use. just moved back from [facility] reestablishing care Smoking Status: Never smoker Past Alcohol Use History: None Reported Past Drug Use History: None Reported - Past Family History Father History Unknown: Yes Additional Family Medical History / Comment(s): States that he was adopted, but says that he thinks there isnt any family history on either side. Medications and Allergies Home Medications and Allergies Comment(s): Current Medications Albuterol/Ipratropium (Duoneb 0.5 Mg-3 Mg/3 Ml Soln) 3 ml INHALATION RT-Q4H [facility] Last Admin: 02/18/19 23:29 Dose: Not Given Documented by: Budesonide (Pulmicort) 0.25 mg INHALATION RT-DAILY [facility] Last Admin: 02/18/19 07:51 Dose: Not Given Documented by: Dornase Davian (Pulmozyme) 2.5 mg INHALATION RT-DAILY [facility] Last Admin: 02/18/19 16:41 Dose: 2.5 mg Documented by: Enoxaparin Sodium (Lovenox) 30 mg SQ DAILY [facility] Last Admin: 02/18/19 11:02 Dose: Not Given Documented by: Cefepime HCl 1 gm/ Sodium (Chloride) 50 mls @ 100 mls/hr IVPB Q12HR [facility] Last Admin: 02/18/19 21:07 Dose: 100 mls/hr Documented by: Piperacillin Sod/Tazobactam (Sod 3.375 gm/ Sodium Chloride) 100 mls @ 25 mls/hr IVPB Q8HR [facility] Last Admin: 02/19/19 00:06 Dose: 25 mls/hr Documented by: Sodium Chloride (Saline 0.9%) 1,000 mls @ 100 mls/hr IV .Q10H [facility] Last Admin: 02/19/19 00:11 Dose: 100 mls/hr Documented by: Linezolid 600 mg/ IV Solution 300 mls @ 150 mls/hr IVPB Q12HR [facility]; Protocol Last Admin: 02/18/19 21:48 Dose: 150 mls/hr Documented by: Insulin Aspart (Novolog) 0 unit SQ ACHS [facility]; Protocol Last Admin: 02/18/19 21:03 Dose: 4 unit Documented by: Insulin Detemir (Levemir) 40 unit SQ HS [facility] Last Admin: 02/18/19 21:04 Dose: 40 unit Documented by: Miscellaneous Information (Magnesium Per Protocol) 1 each MISCELLANE DAILY PRN; Protocol PRN Reason: Per Protocol Miscellaneous Information (Potassium Per Protocol) 1 each MISCELLANE DAILY PRN PRN Reason: Per Protocol Lipase/Protease/Amylase [Joselo Smith 24 ,000 Units Capsule] 4 Cap 4 cap PO QID [facility] Last Admin: 02/18/19 21:09 Dose: Not Given Documented by: Home Medications Medication Instructions Recorded Confirmed Type Albuterol Inhaler [Ventolin Hfa 2 puff INHALATION RT-Q6H PRN 06/15/15 02/17/19 History Inhaler] Budesonide [Pulmicort] 0.25 mg INHALATION RT-DAILY 06/15/15 02/17/19 History Insulin Glargine [Lantus] 50 unit SQ HS 06/15/15 02/17/19 History Lipase/Protease/Amylase [Joselo Smith 4 cap PO QID 06/15/15 02/17/19 History 24,000 Units Capsule] Cpt Vest 1 dose PEG/G-TUBE TID 02/17/19 02/17/19 History Ergocalciferol [Vitamin D2] 50,000 unit PO WE 02/17/19 02/17/19 History Hypertonic Saline 3% Nebuliz 4 ml INHALATION RT-BID 02/17/19 02/17/19 History INSULIN LISPRO (HumaLOG) [HumaLOG] See Protocol SQ AC-TID 02/17/19 02/17/19 History Non-Formulary Drug [Non Formulary 1 each PO ONCE 02/18/19 02/18/19 History Drug] Allergies Allergy/AdvReac Type Severity Reaction Status Date / Time sulfamethoxazole Allergy Unknown Verified 02/17/19 19:45 [From Bactrim] trimethoprim [From Bactrim] Allergy Unknown Verified 02/17/19 19:45 vancomycin AdvReac Rash/Hives Verified 02/17/19 19:45 Physical Exam Vitals: Vital Signs Temp Pulse Pulse Pulse Resp BP Pulse Ox 02/18/19 20:30 98.6 F 105 H 16 115/79 92 L 02/18/19 16:48 110 H 16 02/18/19 16:43 111 H 18 02/18/19 14:17 18 02/18/19 13:20 98.9 F 111 H 16 113/71 91 L 02/18/19 11:25 97 02/18/19 11:16 83 02/18/19 09:09 98.0 F 99 16 105/69 97 02/18/19 08:02 104 H 02/18/19 07:51 88 95 02/18/19 04:57 110 H 02/18/19 04:48 110 H 02/18/19 04:00 97.9 F 88 18 99/63 94 L Intake and Output 02/18/19 02/18/19 02/19/19 14:59 22:59 06:59 Intake Total 240 200 Balance 240 200 Intake: Intake, IV Titration 200 Amount Cefepime 1 gm In Sodium 50 Chloride 0.9% 50 ml @ 100 mls/hr IVPB Q12HR [facility] Rx #:[id number] Piperacillin-Tazobactam 3 50 .375 gm In Sodium Chloride 0.9% 100 ml @ 25 mls/hr IVPB Q8HR [facility] Rx# :[id number] Sodium Chloride 0.9% 1, 100 000 ml @ 100 mls/hr IV . Q10H [facility] Rx#:[id number] Oral 240 Other: Voiding Method Toilet # Voids 2 Weight 52.5 kg 18-year-old male thin build HEENT: Anicteric conjunctiva are pink and moist nasal mucosa grossly intact without significant lesions, there is no thrush. Neck: The neck is supple without significant lymphadenopathy or thyromegaly. Lungs: Symmetrical air entry is noted, expiratory wheezes are scattered few basilar crackles are heard bilaterally. Heart: Regular rate and rhythm with an audible S1-S2, no S3 no S4. There is no significant murmur click or rub, PMI was nondisplaced. Abdomen: Positive bowel sounds soft and nontender without palpable masses or organomegaly. There was no guarding or rebound. Extremities: The upper extremities have excellent pulses they are symmetric, no significant petechiae or telangiectasia. No splinter hemorrhages were noted. The lower extremities are free from significant edema. The peripheral pulses were 2+ and symmetric. Neuro: Awake alert oriented to person place and time. There are no acute new gross focal sensory motor deficits. Results CBC & Chem 7: 02/17/19 19:42 02/18/19 04:16 Labs: Abnormal Lab Results - Last 24 Hours (Table) 02/17/19 02/18/19 02/18/19 Range/Units 23:54 00:31 00:32 Sodium 136 L (137-145) mmol/L Creatinine 0.62 L (0.66-1.25) mg/dL Glucose 219 H (74-99) mg/dL POC Glucose (mg/dL) 209 H (75-99) mg/dL Plasma Lactic Acid Cristian 2.7 H* (0.7-2.0) mmol/L Urine Glucose (UA) (Negative) 02/18/19 02/18/19 02/18/19 Range/Units 04:16 06:22 11:08 Sodium (137-145) mmol/L Creatinine 0.57 L (0.66-1.25) mg/dL Glucose 102 H (74-99) mg/dL POC Glucose (mg/dL) 55 L 206 H (75-99) mg/dL Plasma Lactic Acid Cristian (0.7-2.0) mmol/L Urine Glucose (UA) (Negative) 02/18/19 02/18/19 02/18/19 Range/Units 17:14 20:26 23:20 Sodium (137-145) mmol/L Creatinine (0.66-1.25) mg/dL Glucose (74-99) mg/dL POC Glucose (mg/dL) 273 H 284 H (75-99) mg/dL Plasma Lactic Acid Cristian (0.7-2.0) mmol/L Urine Glucose (UA) 4+ H (Negative) Microbiology - Last 24 Hours (Table) 02/17/19 20:21 Blood Culture - Preliminary Blood No Growth after 24 hours Laboratory Results WBC 15.2 k/uL (4.0-11.0) H 02/17/19 19:42 RBC 5.57 m/uL (4.30-5.90) 02/17/19 19:42 Hgb 14.8 gm/dL (13.0-17.5) 02/17/19 19:42 Hct 47.0 % (39.0-53.0) 02/17/19 19:42 MCV 84.4 fL (80.0-100.0) 02/17/19 19:42 MCH 26.6 pg (25.0-35.0) 02/17/19 19:42 MCHC 31.6 g/dL (31.0-37.0) 02/17/19 19:42 RDW 16.6 % (11.5-15.5) H 02/17/19 19:42 Plt Count 480 k/uL (150-450) H 02/17/19 19:42 Neutrophils % 75 % 02/17/19 19:42 Lymphocytes % 21 % 02/17/19 19:42 Monocytes % 2 % 02/17/19 19:42 Eosinophils % 0 % 02/17/19 19:42 Basophils % 0 % 02/17/19 19:42 Neutrophils # 11.4 k/uL (1.3-7.7) H 02/17/19 19:42 Lymphocytes # 3.2 k/uL (1.0-4.8) 02/17/19 19:42 Monocytes # 0.4 k/uL (0-1.0) 02/17/19 19:42 Eosinophils # 0.1 k/uL (0-0.7) 02/17/19 19:42 Basophils # 0.0 k/uL (0-0.2) 02/17/19 19:42 Anisocytosis Slight 02/17/19 19:42 VBG pH 7.42 (7.31-7.41) H 02/17/19 21:05 VBG pCO2 40 mmHg (37-51) 02/17/19 21:05 VBG HCO3 25 mmol/L (24-28) 02/17/19 21:05 Sodium 138 mmol/L (137-145) 02/18/19 04:16 Potassium 3.9 mmol/L (3.5-5.1) 02/18/19 04:16 Chloride 106 mmol/L (98-107) 02/18/19 04:16 Carbon Dioxide 26 mmol/L (22-30) 02/18/19 04:16 Anion Gap 6 mmol/L 02/18/19 04:16 BUN 13 mg/dL (9-20) 02/18/19 04:16 Creatinine 0.57 mg/dL (0.66-1.25) L 02/18/19 04:16 Est GFR (CKD-EPI)AfAm >90 (>60 ml/min/1.73 sqM) 02/18/19 04:16 Est GFR (CKD-EPI)NonAf >90 (>60 ml/min/1.73 sqM) 02/18/19 04:16 Glucose 102 mg/dL (74-99) H 02/18/19 04:16 POC Glucose (mg/dL) 284 mg/dL (75-99) H 02/18/19 20:26 POC Glu Turn Down Attendant ID Rachel Sow 02/18/19 20:26 Lactic Ac Sepsis Rflx Y 02/17/19 22:23 Plasma Lactic Acid Cristian 2.0 mmol/L (0.7-2.0) 02/18/19 04:16 Calcium 9.7 mg/dL (8.4-10.2) 02/17/19 19:42 Phosphorus 4.0 mg/dL (2.5-4.5) 02/18/19 04:16 Magnesium 1.8 mg/dL (1.6-2.3) 02/17/19 19:42 Total Bilirubin 0.3 mg/dL (0.2-1.3) 02/17/19 19:42 AST 35 U/L (17-59) 02/17/19 19:42 ALT 31 U/L (21-72) 02/17/19 19:42 Alkaline Phosphatase 139 U/L (38-126) H 02/17/19 19:42 Total Protein 7.9 g/dL (6.3-8.2) 02/17/19 19:42 Albumin 4.1 g/dL (3.5-5.0) 02/17/19 19:42 Urine Color Colorless 02/18/19 23:20 Urine Appearance Clear (Clear) 02/18/19 23:20 Urine pH 7.5 (5.0-8.0) 02/18/19 23:20 Ur Specific [place] 1.012 (1.001-1.035) 02/18/19 23:20 Urine Protein Negative (Negative) 02/18/19 23:20 Urine Glucose (UA) 4+ (Negative) H 02/18/19 23:20 Urine Ketones Negative (Negative) 02/18/19 23:20 Urine Blood Negative (Negative) 02/18/19 23:20 Urine Nitrite Negative (Negative) 02/18/19 23:20 Urine Bilirubin Negative (Negative) 02/18/19 23:20 Urine Urobilinogen <2.0 mg/dL (<2.0) 02/18/19 23:20 Ur Leukocyte Esterase Negative (Negative) 02/18/19 23:20 Acetone, Qual Positive (Negative) 02/17/19 19:42 Microbiology 02/17/19 20:21 Blood Blood Culture - Preliminary No Growth after 24 hours Chest x-ray: report reviewed (hronic changes right middle lobe pneumonia) Assessment and Plan (1) Cystic fibrosis Current Visit: No Status: Acute Code(s): E84.9 - CYSTIC FIBROSIS, UNSPECIFIED SNOMED Code(s): 039838989 (2) Pneumonia Current Visit: Yes Status: Acute Code(s): J18.9 - PNEUMONIA, UNSPECIFIED ORGANISM SNOMED Code(s): 115138177 (3) MRSA (methicillin resistant staph aureus) culture positive Narrative/Plan: 18-year-old male with known history of cystic fibrosis presents to hospital with increasing shortness of breath fever feeling poorly in needing to reestablish care. Using his medications also. He's been seen by pulmonary critical care and hopefully will be able to continue to care for him after his discharge. Culture data is reviewed and he did have a history of MRSA however the source is sputum, found during his last stay. Consequently with his vancomycin ALLERGY will use Zyvox IV in addition to the cefepime that is already ordered for now until we have further data. Continue utilization of his creatinine to help him with his food ingestion We'll ask pulmonary team if there is the ability to use the percussion vest while he is in hospital. Current Visit: No Status: Acute Code(s): Z22.322 - CARRIER OR SUSPECTED CARRIER OF METHICILLIN RESIS STAPH SNOMED Code(s): 366481561
[2019-02-19] MEDS: IPRATROPIUM-ALBUTEROL 3 ML NEB INHALATION SCH ×5 (03:56→20:28)
[2019-02-19 04:10] LABS: Glucose,Whole Blood 58 mg/dL (75-99)
[2019-02-19 04:30] LABS: Glucose,Whole Blood 88 mg/dL (75-99)
[2019-02-19 06:52] LABS: Glucose,Whole Blood 109 mg/dL (75-99)
[2019-02-19] MEDS: DORNASE ALFA 1 MG/ML 2.5 ML AMP INHALATION SCH (07:10)
[2019-02-19] MEDS: BUDESONIDE 0.25 MG/2 ML NEBU INHALATION SCH (07:10)
[2019-02-19] MEDS: INSULIN ASPART (NovoLOG) 100 UNIT/ML VIAL SQ SCH ×4 (07:15→20:56)
[2019-02-19] MEDS: ENOXAPARIN 30 MG/0.3 ML SYRINGE SQ SCH ×2 (07:43→07:47)
[2019-02-19] MEDS: PROTEASE PO SCH ×2 (07:46→11:46)
[2019-02-19] MEDS: LIPASE PO SCH ×2 (07:46→11:46)
[2019-02-19] MEDS: AMYLASE PO SCH ×2 (07:46→11:46)
[2019-02-19] MEDS: LINEZOLID 600 MG in DEXTROSE/WATER 1 300ML.BAG IVPB SCH ×2 (08:31→20:54)
[2019-02-19] MEDS: CEFEPIME 1 GM in SODIUM CHLORIDE 0.9% 50 ML IVPB SCH ×2 (09:30→19:54)
[2019-02-19 12:27] LABS: Glucose,Whole Blood 174 mg/dL (75-99)
--- NOTE | 2019-02-19 13:57 | P.PN ---
Subjective Progress Note Date: 02/19/19 Principal diagnosis: Acute hypoxic respiratory failure secondary to cystic fibrosis and possible pneumonia. Most likely secondary to MRSA or pseudomonas aeruginosa or possibly both This is a very pleasant 18-year-old gentleman with a known history of cystic fibrosis, diabetes mellitus, MRSA and abdominal fluid in 2017, PEG tube, depression. He has recently moved back here to [place] from [place]. He had been without some of his medications but states he has most of them now. He has been maintained on Creon, Lantus, Pulmicort and albuterol. He also has a CPT vest. He was seen by our group back in 2017 here during an admission for DKA. He presented here to the emergency room yesterday after having a 3 day history of increasing shortness of breath productive cough of green-yellow sputum and elevated blood sugars. Chest x-ray shows extensive pulmonary fibrotic changes. Chronic reticular nodular infiltrates. Chronic medial right upper lobe density as compared to previous in 2017. He was tachycardic. Temp 99.3. Oxygen 90% on room air. White count 15.2. Hemoglobin 14.8. Creatinine 0.52. Glucose 268. Acetone positive. Lactic acid 2.7. Down to 2.0. He is seen today in consultation on the regular medical floor. He is currently awake and alert in no acute distress. He is comfortable at rest. Dyspneic with minimal exertion. He's been initiated on cefepime and Zosyn, DuoNeb inhalations, Pulmicort inhalations, Pulmozyme, Creon has been resumed. Patient was reevaluated today on 02/19/2019, patient is now on bronchodilators, Pulmozyme, steroids, antibiotics in the form of Zyvox and cefepime. Slightly better, less cough and less wheezing less shortness of breath. T-max of 98.9 yesterday. Presently afebrile ,temp is 97.6. Patient was seen by infectious disease on consultation, and Zyvox was added. Objective - Vital Signs Vital signs: Vital Signs Temp 97.8 F 02/19/19 04:50 Pulse 100 02/19/19 11:13 Resp 16 02/19/19 08:00 BP 101/66 02/19/19 04:50 Pulse Ox 93 L 02/19/19 04:50 Intake & Output 06/02/19/19 02/19/19 18:59 06:59 18:59 Intake Total 240 200 Balance 240 200 Weight 52.5 kg Intake: Intake, IV Titration 200 Amount Cefepime 1 gm In Sodium 50 Chloride 0.9% 50 ml @ 100 mls/hr IVPB Q12HR [facility] Rx #:[id number] Piperacillin-Tazobactam 3 50 .375 gm In Sodium Chloride 0.9% 100 ml @ 25 mls/hr IVPB Q8HR [facility] Rx# :[id number] Sodium Chloride 0.9% 1, 100 000 ml @ 100 mls/hr IV . Q10H [facility] Rx#:[id number] Oral 240 Other: Voiding Method Toilet Toilet # Voids 2 1 - Exam Physical Exam: Revealed a 18-year-old white male in no distress, on 2 L nasal cannula. Head: Atraumatic, normocephalic. HEENT:[Neck is supple.] [No neck masses.] [No thyromegaly.] [No JVD.] PERRLA, EOMI, no icterus. Chest: [Scattered rhonchi bilaterally more so on forced expiratory maneuver. Symmetrical chest expansion, no chest wall tenderness..] Cardiac Exam: [Normal S1 and S2, no S3 gallop, no murmur.] Abdomen: [Soft, nontender, no megaly, no rebound, no guarding, normal bowel so unds.] Extremities: [Positive clubbing, no edema, no cyanosis, multiple tattoos noted on his upper extremities. Neurological Exam: [No focal neurologic deficit. Alert oriented 3. Skin: No rashes, has multiple tattoos all over. Psychiatric: Blunted affect, depressed mood, good mental status examination. Lymphatics: No lymphadenopathy.] - Labs CBC & Chem 7: 02/17/19 19:42 02/18/19 04:16 Labs: Abnormal Lab Results - Last 24 Hours (Table) 02/18/19 02/18/19 02/18/19 Range/Units 17:14 20:26 23:20 POC Glucose (mg/dL) 273 H 284 H (75-99) mg/dL Urine Glucose (UA) 4+ H (Negative) 02/19/19 02/19/19 02/19/19 Range/Units 04:08 06:49 12:13 POC Glucose (mg/dL) 58 L 109 H 174 H (75-99) mg/dL Urine Glucose (UA) (Negative) Microbiology - Last 24 Hours (Table) 02/17/19 20:21 Blood Culture - Preliminary Blood No Growth after 24 hours Assessment and Plan Assessment: #1 Acute hypoxic respiratory failure secondary to cystic fibrosis, bronchiectasis, possible pneumonia secondary to MRSA or possibly pseudomonas or possibly both. #2 Cystic fibrosis. #3 Diabetes mellitus insulin-dependent. #4 Malnutrition status post PEG tube insertion. #5 History of MRSA in abdominal wall near PEG tube site in 2017 #6 Chronic pancreatic insufficiency. Recommendation: Continue present course of antibiotics including cefepime and Zyvox, continue bronchodilators, continue Pulmozyme, continue his home meds, patient will likely be considered for discharge in the next 2 days, may have to be on a good course of antibiotics and that would be recommended by infectious disease on the case. I'm not certain at this point whether the patient was treated with CAFTR modular treatment for cystic fibrosis. Patient is not the greatest historian but has been treated for his cystic fibrosis out of state [place] a [place]. The drug normally used is ivacaftor, but this is only helpful and 4% of cystic fibrosis patients in the [place]. However to be approved for the drug, patient would have to have 2 copies of the [id number] mutations. Patient is not aware if he had any testing for this mutation. Time with Patient: Less than 30
--- NOTE | 2019-02-19 15:59 | P.PN ---
Subjective Progress Note Date: 02/19/19 Principal diagnosis: Patient is a 18-year-old that was admitted with DKA secondary to likely pneumonia with concern for MRSA or pseudomonas. Patient has a history of cystic fibrosis and recently moved here from [place], he was initially started on insulin drip and transitioned to the subcu insulin when his anion gap closes and his DKA resolved. He was started on empiric IV antibiotics with cefepime and Zosyn ID and pulmonary consulted patient was switched to cefepime and Zyvox. He was started on breathing treatments and continued on IV fluids. Patient isn't examined at bedside, reporting some improvement of his symptoms feels that his breathing is better. Afebrile overnight no acute events Objective - Vital Signs Vital signs: Vital Signs Temp 98.3 F 02/19/19 13:50 Pulse 108 H 02/19/19 15:17 Resp 18 02/19/19 13:50 BP 117/80 02/19/19 13:50 Pulse Ox 91 L 02/19/19 13:50 Intake & Output 02/18/19 02/19/19 02/19/19 18:59 06:59 18:59 Intake Total 240 200 Balance 240 200 Weight 52.5 kg Intake: Intake, IV Titration 200 Amount Cefepime 1 gm In Sodium 50 Chloride 0.9% 50 ml @ 100 mls/hr IVPB Q12HR [facility] Rx #:[id number] Piperacillin-Tazobactam 3 50 .375 gm In Sodium Chloride 0.9% 100 ml @ 25 mls/hr IVPB Q8HR [facility] Rx# :[id number] Sodium Chloride 0.9% 1, 100 000 ml @ 100 mls/hr IV . Q10H [facility] Rx#:[id number] Oral 240 Other: Voiding Method Toilet Toilet # Voids 2 1 2 - Exam Constitutional: No acute distress, conversant, pleasant Eyes: Anicteric sclerae, moist conjunctiva, no lid-lag, PERRLA ENMT: NC/AT,Oropharynx clear, no erythema, exudates Neck:Supple, FROM, no masses, or JVD, No carotid bruits; No thyromegaly Lungs: Bilateral scattered rhonchi and crackles, diminished in the bases Cardiovascular: Heart regular in rate and rhythm, No murmurs, gallops, or rubs no peripheral edema Abdominal: Soft Nontender, nom distended, no guarding, no rebound or rigidity, Normoactive bowel sounds No hepatomegaly, No splenomegaly, No palpable mass No abdominal wall hernia noted Skin: Normal temperature, tone, texture, turgor, No induration No subcutaneous nodules, No rash, lesions, No ulcers Extremities:No digital cyanosis No clubbing, Pedal pulses intact and symmetrical Radial pulses intact and symmetrical Normal gait and station, No calf tenderness Psychiatric: Alert and oriented to person, place and time, Appropriate affect Intact judgement Neuro: Muscles Strength 5/5 in all 4 extremities, Sensation to light touch grossly present throughout, Cranial nerves II-XII grossly intact. No focal sensory deficits - Labs CBC & Chem 7: 02/17/19 19:42 02/18/19 04:16 Labs: Abnormal Lab Results - Last 24 Hours (Table) 02/18/19 02/18/19 02/18/19 Range/Units 17:14 20:26 23:20 POC Glucose (mg/dL) 273 H 284 H (75-99) mg/dL Urine Glucose (UA) 4+ H (Negative) 02/19/19 02/19/19 02/19/19 Range/Units 04:08 06:49 12:13 POC Glucose (mg/dL) 58 L 109 H 174 H (75-99) mg/dL Urine Glucose (UA) (Negative) Microbiology - Last 24 Hours (Table) 02/17/19 20:21 Blood Culture - Preliminary Blood No Growth after 24 hours Assessment and Plan Plan: Sepsis secondary to pneumonia in setting of cystic fibrosis -Continue with cefepime and Zyvox per ID recommendations -Continue with IV fluids 100 mL an hour -Pulmonary consulted -Continue with DuoNeb's -Supplemental oxygen -F/u blood cultures negative so far, history of MRSA in sputum and has a vancomycin ALLERGY Diabetes mellitus, DKA now resolved -Continue with Lantus 40 units (takes 50 units at home) -Blood glucose monitoring -Lispro sliding scale Elevated lactate -Continue with IV fluids -Monitor for resolution Underweight -Bellperson consult DVT prophylaxis -Lovenox Disposition * Continue current management * Anticipated discharge 1 to 2 days
[2019-02-19 17:15] LABS: Glucose,Whole Blood 378 mg/dL (75-99)
[2019-02-19] MEDS: INSULIN DETEMIR (LEVEMIR) 100 UNIT/ML SYR SQ SCH (20:55)
[2019-02-19 20:58] LABS: Glucose,Whole Blood 273 mg/dL (75-99)
[2019-02-20] MEDS: IPRATROPIUM-ALBUTEROL 3 ML NEB INHALATION SCH ×5 (00:18→15:04)
[2019-02-20] MEDS: PIPERACILLIN-TAZOBACTAM 3.375 GM in SODIUM CHLORIDE 0.9% 100 ML IVPB SCH ×2 (00:47→08:17)
[2019-02-20] MEDS: SODIUM CHLORIDE 0.9% 1,000 ML IV SCH ×2 (05:38→16:04)
[2019-02-20 07:19] LABS: Glucose,Whole Blood 185 mg/dL (75-99)
[2019-02-20] MEDS: INSULIN ASPART (NovoLOG) 100 UNIT/ML VIAL SQ SCH ×2 (08:16→12:50)
[2019-02-20] MEDS: CEFEPIME 1 GM in SODIUM CHLORIDE 0.9% 50 ML IVPB SCH (08:17)
[2019-02-20] MEDS: ENOXAPARIN 30 MG/0.3 ML SYRINGE SQ SCH (08:18)
[2019-02-20] MEDS: BUDESONIDE 0.25 MG/2 ML NEBU INHALATION SCH (08:36)
[2019-02-20] MEDS: DORNASE ALFA 1 MG/ML 2.5 ML AMP INHALATION SCH (08:52)
[2019-02-20] MEDS: LINEZOLID 600 MG in DEXTROSE/WATER 1 300ML.BAG IVPB SCH (09:53)
[2019-02-20 12:21] LABS: Glucose,Whole Blood 264 mg/dL (75-99)
[2019-02-20 14:15] VITALS: BP 112/75; RESP 16; TEMP 97
[2019-02-20 15:17] VITALS: PULSE 85
--- NOTE | 2019-02-20 15:39 | P.DS ---
Providers Date of admission: 02/17/19 21:00 Expected date of discharge: 02/20/19 Attending physician: Kylah Oconnor MD Consults: 02/17/19 21:01 Consult Physician Urgent Consulting Provider: Fadia Brown Consult Reason/Comments: dyspnea Do you want consulting provider notified?: Already Contacted 02/18/19 14:26 Consult Physician Routine Consulting Provider: Dinesh Peters Consult Reason/Comments: pneumonia/cystic fibosis/ Do you want consulting provider notified?: Yes Primary care physician: Stated None Hospital Course: Discharge Diagnosis: 1. Sepsis secondary to pneumonia setting of cystic fibrosis with history of MRSA 2. DKA secondary to diabetes mellitus, chronically on insulin therapy at home 3. Elevated lactic acid 4. Underweight, malnutrition 5. Chronic pancreatic insufficiency Hospital Course: Patient is a 18-year-old male with a past medical history of cystic fibrosis, diabetes mellitus, pancreatic insufficiency, and prior episodes of DKA who presented to the hospital with complaints of yellow-green phlegm and worsening cough. In the ER he underwent an extensive evaluation. Chest x-ray showed pulmonary fibrotic changes along with chronic reticular nodule infiltrates. Laboratory analysis showed an elevated lactic acid at 7.4, white blood cell count of 15.2, has glucose was slightly elevated at 268. His son and DKA as his anion gap was 16, carbon dioxide 21, and acetone was positive. Is also found to have 4+ glucose in his urine. He was started on an insulin drip, IV antibiotics, and breathing treatments. He was seen by pulmonary who recommended controlled with Zofran and cefepime, bronchodilators, and chest physiotherapy. Seen by infectious disease who recommended covering his history of MRSA with Zyvox secondary to vancomycin ALLERGY and he was continued on Zyvox and cefepime. His blood sugars continue to improve. His DKA resolved.. He was started on basal with sliding scale insulin. He continued to improve. He was determined stable for discharge. He will complete a seven-day course of Zyvox. He is given a follow with the CSF specialist out of [facility] for both pulmonary and endocrinology. He states that he does have enough of his Lantus and sliding scale insulin at home. He will leave his antibiotics on discharge. 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 He has been out of his ivacaftor. He will follow with [facility] to see if it should be refilled. Patient seen and examined at bedside. Cough almost resolved, breathing well, feeling, wants to be discharged. Will follow at [facility]. Vital signs reviewed and stable. General: non toxic, no distress, appears at stated age Derm: warm, dry Head: atraumatic, normocephalic, symmetric Eyes: EOMI, no lid lag, anicteric sclera Mouth: no lip lesion, mucus membranes moist Cardiovascular: S1S2 reg, no murmur, positive posterior tibial pulse bilateral, Lungs: course bs bilateral , no accessory muscle use Abdominal: soft, nontender to palpation, no guarding, no appreciable organomegaly Ext: no gross muscle atrophy, no edema, no contractures Neuro: CN II-XI grossly intact, no focal neuro deficits Psych: Alert, oriented, appropriate affect A total of 37 minutes of time were spent preparing this complex discharge summary . Pertinent Studies: CXR- extensive fibrotic changes Patient Condition at Discharge: Stable Plan - Discharge Summary Discharge Rx Participant: Yes New Discharge Prescriptions: New Linezolid [Zyvox] 600 mg PO Q12H #14 tab Continue Budesonide [Pulmicort] 0.25 mg INHALATION RT-DAILY Albuterol Inhaler [Ventolin Hfa Inhaler] 2 puff INHALATION RT-Q6H PRN PRN Reason: Shortness Of Breath Lipase/Protease/Amylase [Joselo Smith 24,000 Units Capsule] 4 cap PO QID Insulin Glargine [Lantus] 50 unit SQ HS Cpt Vest 1 dose PEG/G-TUBE TID Ergocalciferol [Vitamin D2 (DRISDOL)] 50,000 unit PO WE INSULIN LISPRO (HumaLOG) [humaLOG] See Protocol SQ AC-TID Hypertonic Saline 3% Nebuliz 4 ml INHALATION RT-BID Non-Formulary Drug [Non Formulary Drug] 1 each PO ONCE Discharge Medication List Albuterol Inhaler [Ventolin Hfa Inhaler] 2 puff INHALATION RT-Q6H PRN 06/15/15 [History] Budesonide [Pulmicort] 0.25 mg INHALATION RT-DAILY 06/15/15 [History] Insulin Glargine [Lantus] 50 unit SQ HS 06/15/15 [History] Lipase/Protease/Amylase [Joselo Smith 24,000 Units Capsule] 4 cap PO QID 06/15/15 [History] Cpt Vest 1 dose PEG/G-TUBE TID 02/17/19 [History] Ergocalciferol [Vitamin D2 (DRISDOL)] 50,000 unit PO WE 02/17/19 [History] Hypertonic Saline 3% Nebuliz 4 ml INHALATION RT-BID 02/17/19 [History] INSULIN LISPRO (HumaLOG) [humaLOG] See Protocol SQ AC-TID 02/17/19 [History] Non-Formulary Drug [Non Formulary Drug] 1 each PO ONCE 02/18/19 [History] Linezolid [Zyvox] 600 mg PO Q12H #14 tab 02/20/19 [Rx] Follow up Appointment(s)/Referral(s): None,Stated [Primary Care Provider] - 1-2 days Activity/Diet/Wound Care/Special Instructions: Will need to send indigent form down to our pharmacy.
--- NOTE | 2019-02-20 16:19 | P.PN ---
Subjective Progress Note Date: 02/20/19 Principal diagnosis: Acute hypoxic respiratory failure secondary to extensive fibrotic changes and nodular infiltrate secondary to cystic fibrosis with chronic medial right upper lobe density. This is a very pleasant 18-year-old gentleman with a known history of cystic fibrosis, diabetes mellitus, MRSA and abdominal fluid in 2017, PEG tube, depression. He has recently moved back here to [place] from [place]. He had been without some of his medications but states he has most of them now. He has been maintained on Creon, Lantus, Pulmicort and albuterol. He also has a CPT vest. He was seen by our group back in 2017 here during an admission for DKA. He presented here to the emergency room yesterday after having a 3 day history of increasing shortness of breath productive cough of green-yellow sputum and elevated blood sugars. Chest x-ray shows extensive pulmonary fibrotic changes. Chronic reticular nodular infiltrates. Chronic medial right upper lobe density as compared to previous in 2017. He was tachycardic. Temp 99.3. Oxygen 90% on room air. White count 15.2. Hemoglobin 14.8. Creatinine 0.52. Glucose 268. Acetone positive. Lactic acid 2.7. Down to 2.0. He is seen today in consultation on the regular medical floor. He is currently awake and alert in no acute distress. He is comfortable at rest. Dyspneic with minimal exertion. He's been initiated on cefepime and Zosyn, DuoNeb inhalations, Pulmicort inhalations, Pulmozyme, Creon has been resumed. Patient was reevaluated today on 02/19/2019, patient is now on bronchodilators, Pulmozyme, steroids, antibiotics in the form of Zyvox and cefepime. Slightly better, less cough and less wheezing less shortness of breath. T-max of 98.9 yesterday. Presently afebrile ,temp is 97.6. Patient was seen by infectious disease on consultation, and Zyvox was added. The patient is seen again today 02/20/2018 in follow-up on the regular medical floor. He is currently awake and alert in no acute distress. Continues with a loose nonproductive cough. No fever chills or night sweats. 18 O2 saturations in the 90s on room air. He is afebrile. Hemodynamically stable. Blood culture reveals no growth. He is continued on the backs per infectious disease including Zosyn, cefepime and linezolid. Objective - Vital Signs Vital signs: Vital Signs Temp 97.0 F L 02/20/19 13:50 Pulse 85 02/20/19 15:17 Resp 16 02/20/19 13:50 BP 112/75 02/20/19 13:50 Pulse Ox 90 L 02/20/19 13:50 Intake & Output 02/19/19 02/20/19 02/20/19 18:59 06:59 18:59 Intake Total 740 480 Balance 740 480 Weight 52.5 kg Intake: Oral 740 480 Other: Voiding Method Toilet Toilet # Voids 2 2 2 - Exam GENERAL EXAM: Pleasant thin 18-year-old gentleman currently comfortable in no apparent distress. On room air. HEAD: Normocephalic. EYES: Normal reaction of pupils, equal size. NOSE: Clear with pink turbinates. THROAT: No erythema or exudates. NECK: No masses, no JVD. CHEST: No chest wall deformity. LUNGS: Equal air entry with bilateral scattered rhonchi, crackles, diminished. CVS: S1 and S2 normal with no audible murmur, regular rhythm. ABDOMEN: PEG tube exit site is clean and dry. No hepatosplenomegaly, normal bowel sounds, no guarding or rigidity. SPINE: No scoliosis or deformity SKIN: No rashes CENTRAL NERVOUS SYSTEM: No focal deficits, tone is normal in all 4 extremities. EXTREMITIES: There is no peripheral edema. No clubbing, no cyanosis. Peripheral pulses are intact. - Labs CBC & Chem 7: 02/17/19 19:42 02/18/19 04:16 Labs: Abnormal Lab Results - Last 24 Hours (Table) 02/19/19 02/19/19 02/20/19 Range/Units 17:13 20:41 07:12 POC Glucose (mg/dL) 378 H 273 H 185 H (75-99) mg/dL 02/20/19 Range/Units 12:19 POC Glucose (mg/dL) 264 H (75-99) mg/dL Microbiology - Last 24 Hours (Table) 02/17/19 20:21 Blood Culture - Preliminary Blood No Growth after 48 hours Assessment and Plan Assessment: Impression: #1 Acute hypoxic respiratory failure secondary to extensive fibrotic changes and nodular infiltrate secondary to cystic fibrosis with a chronic medial right upper lobe density. #2 Cystic fibrosis. #3 Diabetes mellitus insulin-dependent. #4 Malnutrition status post PEG tube insertion. #5 History of MRSA in abdominal wall near PEG tube site in 2017 #6 Chronic pancreatic insufficiency. Plan: The patient was seen and evaluated by Dr. Brown. He is cleared for discharge from the pulmonary standpoint. Antibiotics per infectious disease. The patient plans to follow-up at the [facility] clinic for cystic fibrosis. I, the cosigning physician, performed a history & physical examination of the patient. Lungs sounds with bilateral scattered rhonchi. Maintaining good O2 saturations in the 90s on room air. I discussed the assessment and plan of care with my nurse practitioner, Evette Adkins. I attest to the above note as dictated by her.
[2019-02-20 18:10] LABS: Hemoglobin A1C 16.2 % (4.0-6.0)
[2019-02-21] MEDS ORDERED: ENOXAPARIN 40 MG/0.4 ML SYRINGE SQ SCH (09:00)
== END 2019-02-20 16:50 | disposition home or self-care (01) | DRG 871 ==
LOC: EC 18:46 → 3SCARD 21:00 → 4MS4W 02-18 13:02
PROVIDERS: ADMIT Internal Medicine; ATTEND Internal Medicine
DX: A41.9 Sepsis, unspecified organism (principal); J18.1 Lobar pneumonia, unspecified organism; E11.10 Type 2 diabetes mellitus with ketoacidosis without coma; J96.01 Acute respiratory failure with hypoxia; E84.9 Cystic fibrosis, unspecified; E46 Unspecified protein-calorie malnutrition; K86.89 Other specified diseases of pancreas; Z93.1 Gastrostomy status; F32.9 Major depressive disorder, single episode, unspecified; T50.906A Underdosing of unspecified drugs, medicaments and biological substances, initial encounter; Z91.120 Patient's intentional underdosing of medication regimen due to financial hardship; Z79.51 Long term (current) use of inhaled steroids; Z79.4 Long term (current) use of insulin; Z79.899 Other long term (current) drug therapy; Z86.14 Personal history of Methicillin resistant Staphylococcus aureus infection; Z88.1 Allergy status to other antibiotic agents; Z88.2 Allergy status to sulfonamides
CPT/HCPCS: 36415; 71046; 80051; 80053; 81003; 82009; 82565; 82803; 82947; 83036; 83605; 83735; 84100; 84520; 85025; 87040; 94640; 94760; 96361; 96365; 96366; 99285

== ENCOUNTER 2019-03-25 16:33 | Emergency (ER) | payer OTHER ==
[2019-03-25] MEDS ORDERED: SODIUM CHLORIDE 0.9% 1,000 ML IV STA (18:58)
[2019-03-25] MEDS ORDERED: SODIUM CHLORIDE 0.9% 500 ML 500 ML IV STA (18:58)
--- NOTE | 2019-03-25 19:29 | ED ---
URI HPI - General Chief Complaint: Upper Respiratory Infection Stated Complaint: CF exacerbation Time Seen by Provider: 03/25/19 18:47 Source: patient, RN notes reviewed, old records reviewed Mode of arrival: ambulatory Limitations: no limitations - History of Present Illness Initial Comments: This is a 18-year-old male the ER for evaluation presents today for evaluation shortness breath cough congestion occasional fevers dehydration. Patient has history of cystic fibrosis, not feeling well. No recent travel history no sick contacts. No significant recent hospitalizations. Patient states his shortness of breath cough and congestion is getting progressively worse and he still feeling progressively weak. Patient's eating and drinking appropriately taking all medications as directed MD Complaint: fever, cough, nasal congestion -: days(s) Severity: moderate Severity scale (1-10): 5 Consistency: constant Improves With: nothing Associated Symptoms: nasal congestion, cough, chest pain, shortness of breath Treatments Prior to Arrival: none - Related Data Home Medications Medication Instructions Recorded Confirmed Albuterol Inhaler [Ventolin Hfa 2 puff INHALATION RT-Q6H PRN 06/15/15 03/25/19 Inhaler] Lipase/Protease/Amylase [Creon Dr 4 cap PO QID 06/15/15 03/25/19 24,000 Units Capsule] Cpt Vest 1 dose PEG/G-TUBE TID 02/17/19 03/25/19 Ergocalciferol [Vitamin D2 50,000 unit PO WE 02/17/19 03/25/19 (DRISDOL)] Hypertonic Saline 3% Nebuliz 4 ml INHALATION RT-BID@1200,1900 02/17/19 03/25/19 INSULIN LISPRO (HumaLOG) [humaLOG] See Protocol SQ AC-TID 02/17/19 03/25/19 Insulin Glargine [Lantus] 40 units SQ HS 03/25/19 03/25/19 Pulmozyme 1 vial INHALATION RT-DAILY 03/25/19 03/25/19 Previous Rx's Medication Instructions Recorded Albuterol Nebulized [Ventolin 2.5 mg INHALATION Q4H PRN #25 nebu 03/25/19 Nebulized] Albuterol Sulfate [Proair Hfa] 1 - 2 puff INHALATION Q4H PRN #1 03/25/19 inhaler Amoxic-Pot Clav 875-125Mg 1 tab PO Q12HR #14 tablet 03/25/19 [Augmentin 875-125] Ciprofloxacin HCl [Cipro] 500 mg PO Q12HR #14 tablet 03/25/19 Allergies Allergy/AdvReac Type Severity Reaction Status Date / Time sulfamethoxazole Allergy Unknown Verified 03/25/19 17:18 [From Bactrim] trimethoprim [From Bactrim] Allergy Unknown Verified 03/25/19 17:18 vancomycin AdvReac Rash/Hives Verified 03/25/19 17:18 Review of Systems ROS Statement: Those systems with pertinent positive or pertinent negative responses have been documented in the HPI. ROS Other: All systems not noted in ROS Statement are negative. Past Medical History Past Medical History: Diabetes Mellitus Additional Past Medical History / Comment(s): Cystic Fibrosis History of Any Multi-Drug Resistant Organisms: MRSA Date of last positivie culture/infection: 09/24/16 MDRO Source:: Abdominal Fluid Past Surgical History: No Surgical Hx Reported Additional Past Surgical History / Comment(s): feeding tube, port (removed) Past Anesthesia/Blood Transfusion Reactions: No Reported Reaction Past Psychological History: Depression Smoking Status: Never smoker Past Alcohol Use History: None Reported Past Drug Use History: None Reported - Past Family History Father History Unknown: Yes Additional Family Medical History / Comment(s): States that he was adopted, but says that he thinks there isnt any family history on either side. General Exam Limitations: no limitations General appearance: alert, in no apparent distress Head exam: Present: atraumatic, normocephalic, normal inspection Eye exam: Present: normal appearance, PERRL, EOMI. Absent: scleral icterus, conjunctival injection, periorbital swelling ENT exam: Present: normal exam, mucous membranes moist Neck exam: Present: normal inspection. Absent: tenderness, meningismus, lymphadenopathy Respiratory exam: Present: normal lung sounds bilaterally, wheezes, rhonchi. Absent: respiratory distress, rales, stridor Cardiovascular Exam: Present: normal rhythm, tachycardia, normal heart sounds. Absent: systolic murmur, diastolic murmur, rubs, gallop, clicks GI/Abdominal exam: Present: soft, normal bowel sounds. Absent: distended, tenderness, guarding, rebound, rigid Extremities exam: Present: normal inspection, full ROM, normal capillary refill. Absent: tenderness, pedal edema, joint swelling, calf tenderness Back exam: Present: normal inspection Neurological exam: Present: alert, oriented X3, CN II-XII intact Psychiatric exam: Present: normal affect, normal mood Skin exam: Present: warm, dry, intact, normal color. Absent: rash Course Vital Signs 03/25/19 03/25/19 17:16 18:50 Temperature 99.3 F 100.0 F H Pulse Rate 129 H 123 H Respiratory 18 22 Rate Blood Pressure 112/75 120/79 O2 Sat by Pulse 93 L 92 L Oximetry - Reevaluation(s) Reevaluation #1: 03/25/19 20:52 Medical record is reviewed Reevaluation #2: 03/25/19 20:52 Patient symptoms are negative improving with like discharged home Medical Decision Making - Medical Decision Making 18 male the ER for evaluation, patient was essay for evaluation shortness of cough and congestion patient resents for cystic fibrosis evaluation. Patient awake alert and oriented lab values normal patient can be discharged home - Lab Data Result diagrams: 03/25/19 19:22 03/25/19 19:22 Lab Results 03/25/19 03/25/19 03/25/19 Range/Units 19:22 19:22 19:22 WBC 11.5 H (4.0-11.0) k/uL RBC 5.40 (4.30-5.90) m/uL Hgb 14.8 (13.0-17.5) gm/dL Hct 46.0 (39.0-53.0) % MCV 85.1 (80.0-100.0) fL MCH 27.5 (25.0-35.0) pg MCHC 32.3 (31.0-37.0) g/dL RDW 16.2 H (11.5-15.5) % Plt Count 581 H (150-450) k/uL Neutrophils % 77 % Lymphocytes % 17 % Monocytes % 3 % Eosinophils % 1 % Basophils % 0 % Neutrophils # 8.8 H (1.3-7.7) k/uL Lymphocytes # 2.0 (1.0-4.8) k/uL Monocytes # 0.4 (0-1.0) k/uL Eosinophils # 0.2 (0-0.7) k/uL Basophils # 0.0 (0-0.2) k/uL Anisocytosis Slight Sodium 140 (137-145) mmol/L Potassium 4.7 (3.5-5.1) mmol/L Chloride 99 (98-107) mmol/L Carbon Dioxide 33 H (22-30) mmol/L Anion Gap 8 mmol/L BUN 8 L (9-20) mg/dL Creatinine 0.62 L (0.66-1.25) mg/dL Est GFR (CKD-EPI)AfAm >90 (>60 ml/min/1.73 sqM) Est GFR (CKD-EPI)NonAf >90 (>60 ml/min/1.73 sqM) Glucose 94 (74-99) mg/dL Calcium 9.5 (8.4-10.2) mg/dL Phosphorus 5.1 H (2.5-4.5) mg/dL Magnesium 2.0 (1.6-2.3) mg/dL Total Bilirubin 0.3 (0.2-1.3) mg/dL AST 23 (17-59) U/L ALT 25 (21-72) U/L Alkaline Phosphatase 139 H (38-126) U/L Creatine Kinase 52 L (55-170) U/L Troponin I <0.012 (0.000-0.034) ng/mL Total Protein 7.6 (6.3-8.2) g/dL Albumin 3.9 (3.5-5.0) g/dL Acetone, Qual Negative (Negative) - EKG Data -: EKG Interpreted by Me (EKG shows sinus tachycardia rate 113, VA 170, QRS 70, QTc 4:30) - Radiology Data Radiology results: report reviewed (/Is questionable for worsening pneumonia), image reviewed Disposition Clinical Impression: Cystic fibrosis, Pneumonia Narrative: CF exacerbation Disposition: ADMITTED IP TO THIS HOSP Condition: Fair Instructions (If sedation given, give patient instructions): Upper Respiratory Infection (ED) Prescriptions: Amoxic-Pot Clav 875-125Mg [Augmentin 875-125] 1 tab PO Q12HR #14 tablet Ciprofloxacin HCl [Cipro] 500 mg PO Q12HR #14 tablet Albuterol Sulfate [Proair Hfa] 1 - 2 puff INHALATION Q4H PRN #1 inhaler PRN Reason: Shortness Of Breath Albuterol Nebulized [Ventolin Nebulized] 2.5 mg INHALATION Q4H PRN #25 nebu PRN Reason: Shortness Of Breath Is patient prescribed a controlled substance at d/c from ED?: No Referrals: None,Stated [Primary Care Provider] - 1-2 days
[2019-03-25 19:35] LABS: Anisocytosis Slight; Basophils % (A) 0 %; Eosinophils # (A) 0.2 k/uL (0-0.7); Eosinophils % (A) 1 %; HGB 14.8 gm/dL (13.0-17.5); Lymphocytes % (A) 17 %; MCH 27.5 pg (25.0-35.0); MCHC 32.3 g/dL (31.0-37.0); MCV 85.1 fL (80.0-100.0); Mean Platelet Volume 6.5; Monocytes # (A) 0.4 k/uL (0-1.0); Monocytes % (A) 3 %; Neutrophils # (A) 8.8 k/uL (1.3-7.7); Neutrophils % (A) 77 %; Platelet Count 581 k/uL (150-450); RDW 16.2 % (11.5-15.5); WBC 11.5 k/uL (4.0-11.0)
[2019-03-25 19:44] LABS: ALT 25 U/L (21-72); AST 23 U/L (17-59); African American GFR (CKD) >90 (>60 ml/min/1.73 sqM); Albumin 3.9 g/dL (3.5-5.0); Alkaline Phosphatase 139 U/L (38-126); Anion Gap 8 mmol/L; Blood Urea Nitrogen 8 mg/dL (9-20); Calcium 9.5 mg/dL (8.4-10.2); Carbon Dioxide 33 mmol/L (22-30); Chloride 99 mmol/L (98-107); Creatine Kinase 52 U/L (55-170); Glucose 94 mg/dL (74-99); Phosphorus 5.1 mg/dL (2.5-4.5); Potassium 4.7 mmol/L (3.5-5.1); Sodium 140 mmol/L (137-145); Total Bilirubin 0.3 mg/dL (0.2-1.3); Total Protein 7.6 g/dL (6.3-8.2)
--- NOTE | 2019-03-25 20:27 | XR ---
EXAMINATION: XR chest 2V DATE AND TIME: 03/25/2019 7:47 PM CLINICAL INDICATION: PHH; Weakness TECHNIQUE: Departmental protocol COMPARISON: 02/17/2019 and 12/16/2016 radiographs FINDINGS: When compared to 02/17/2019 radiographic examination, there appears to be increased confluen ce in the right suprahilar position, seen on the lateral and frontal radiographs. The increased opaci ty is mild in degree, when compared to the 02/17/2019 baseline. The chronic interstitial lung changes redemonstrated. Cardiac silhouette and bones and soft tissues are unchanged. IMPRESSION: Mild increase in consolidative opacity, consistent with a clinical diagnosis of pneumonia pneumonia.
[2019-03-25] MEDS ORDERED: cefTRIAXone IN SWFI 1,000 MG/10 ML SYRINGE IVP STA (20:39)
[2019-03-25] MEDS ORDERED: AZITHROMYCIN 500 MG TAB PO STA (20:40)
[2019-03-25] MEDS ORDERED: AMOXIC-POT CLAV 875-125MG 1 EACH TAB PO STA (20:49)
[2019-03-25] MEDS ORDERED: CIPROFLOXACIN HCL 500 MG TAB PO STA (20:49)
[2019-03-25 21:23] VITALS: BP 118/87; PULSE 100; RESP 23; TEMP 99.4
== END 2019-03-25 21:21 | disposition other institution (70) ==
LOC: EC 16:33
DX: E84.9 Cystic fibrosis, unspecified (principal); J18.9 Pneumonia, unspecified organism; E11.9 Type 2 diabetes mellitus without complications; F32.9 Major depressive disorder, single episode, unspecified; Z86.14 Personal history of Methicillin resistant Staphylococcus aureus infection; Z79.4 Long term (current) use of insulin; Z79.899 Other long term (current) drug therapy; Z88.1 Allergy status to other antibiotic agents; Z88.2 Allergy status to sulfonamides
CPT/HCPCS: 36415; 80053; 82550; 82009; 83735; 84100; 84484; 85025; 71046; 99285; 96374; 96361; J0696

== ENCOUNTER 2019-04-26 18:05 | Inpatient (IN) | payer OTHER ==
[2019-04-26] MEDS ORDERED: IPRATROPIUM-ALBUTEROL 3 ML NEB INHALATION STA ×3 (18:24→20:17)
--- NOTE | 2019-04-26 18:34 | ED ---
SOB HPI - General Chief Complaint: Shortness of Breath Stated Complaint: ADALI Time Seen by Provider: 04/26/19 18:11 Source: patient, RN notes reviewed Mode of arrival: ambulatory Limitations: no limitations - History of Present Illness Initial Comments: This is a 18-year-old male history diabetes and cystic fibrosis who states she's had about one week of shortness of breath or exertional dyspnea cough with green thick phlegm he did have also some fever and chills earlier in this week. No nausea no vomiting no other modifying factors. MD Complaint: shortness of breath, cough - Related Data Home Medications Medication Instructions Recorded Confirmed Lipase/Protease/Amylase [Creon Dr 96,000 units PO QID 06/15/15 04/26/19 24,000 Units Capsule] Ergocalciferol [Vitamin D2 50,000 unit PO WE 02/17/19 04/26/19 (DRISDOL)] Hypertonic Saline 3% Nebuliz 4 ml INHALATION RT-BID@1200,1900 02/17/19 04/26/19 INSULIN LISPRO (HumaLOG) [humaLOG] See Protocol SQ AC-TID 02/17/19 04/26/19 Insulin Glargine [Lantus] 50 units SQ HS 03/25/19 04/26/19 Pulmozyme 1 vial INHALATION RT-DAILY 03/25/19 04/26/19 Albuterol Nebulized [Ventolin 2.5 mg INHALATION RT-Q4H PRN 04/26/19 04/26/19 Nebulized] Allergies Allergy/AdvReac Type Severity Reaction Status Date / Time sulfamethoxazole Allergy Unknown Verified 04/26/19 20:08 [From Bactrim] trimethoprim [From Bactrim] Allergy Unknown Verified 04/26/19 20:08 vancomycin AdvReac Rash/Hives Verified 04/26/19 20:08 Review of Systems ROS Statement: Those systems with pertinent positive or pertinent negative responses have been documented in the HPI. ROS Other: All systems not noted in ROS Statement are negative. Past Medical History Past Medical History: Diabetes Mellitus Additional Past Medical History / Comment(s): Cystic Fibrosis History of Any Multi-Drug Resistant Organisms: MRSA Date of last positivie culture/infection: 09/24/16 MDRO Source:: Abdominal Fluid Past Surgical History: No Surgical Hx Reported Additional Past Surgical History / Comment(s): feeding tube, port (removed) Past Anesthesia/Blood Transfusion Reactions: No Reported Reaction Past Psychological History: Depression Smoking Status: Never smoker Past Alcohol Use History: None Reported Past Drug Use History: None Reported - Past Family History Father History Unknown: Yes Additional Family Medical History / Comment(s): States that he was adopted, but says that he thinks there isnt any family history on either side. General Exam - General Exam Comments Initial Comments: Is a well-developed asthenic appearing male who is awake alert oriented 3 Limitations: no limitations General appearance: alert, in distress Head exam: Present: atraumatic, normocephalic, normal inspection Eye exam: Present: normal appearance, PERRL, EOMI. Absent: scleral icterus, conjunctival injection, periorbital swelling ENT exam: Present: normal exam, mucous membranes moist Neck exam: Present: normal inspection. Absent: tenderness, meningismus, lymphadenopathy Respiratory exam: Present: wheezes, decreased breath sounds. Absent: respiratory distress, rales, rhonchi, stridor Cardiovascular Exam: Present: normal rhythm, tachycardia, normal heart sounds. Absent: systolic murmur, diastolic murmur, rubs, gallop, clicks GI/Abdominal exam: Present: soft, normal bowel sounds. Absent: distended, tenderness, guarding, rebound, rigid Extremities exam: Present: normal inspection, full ROM, normal capillary refill. Absent: tenderness, pedal edema, joint swelling, calf tenderness Back exam: Present: normal inspection Neurological exam: Present: alert, oriented X3, CN II-XII intact Psychiatric exam: Present: normal affect, normal mood Skin exam: Present: warm, dry, intact, normal color. Absent: rash Course Vital Signs 04/26/19 04/26/19 04/26/19 18:06 18:43 18:52 Temperature 98.5 F Pulse Rate 128 H 105 H 102 H Respiratory 20 Rate Blood Pressure 115/75 O2 Sat by Pulse 94 L Oximetry 04/26/19 04/26/19 04/26/19 19:00 19:07 19:31 Temperature Pulse Rate 105 H 108 H Respiratory 24 Rate Blood Pressure 108/71 O2 Sat by Pulse 94 L Oximetry 04/26/19 19:42 Temperature Pulse Rate 112 H Respiratory Rate Blood Pressure O2 Sat by Pulse Oximetry - Reevaluation(s) Reevaluation #1: 08/24/19 19:28 Initial reevaluation after treatment reveals no improvement thus far. Reevaluation #2: 04/26/19 20:48 Still has not gotten any better starts his ability to breathe Medical Decision Making - Lab Data Result diagrams: 04/26/19 18:40 04/26/19 18:40 Lab Results 04/26/19 04/26/19 04/26/19 Range/Units 18:40 18:40 18:40 WBC 7.6 (4.0-11.0) k/uL RBC 4.94 (4.30-5.90) m/uL Hgb 13.7 (13.0-17.5) gm/dL Hct 45.0 (39.0-53.0) % MCV 91.1 D (80.0-100.0) fL MCH 27.7 (25.0-35.0) pg MCHC 30.4 L (31.0-37.0) g/dL RDW 14.3 (11.5-15.5) % Plt Count 433 (150-450) k/uL Neutrophils % 68 % Lymphocytes % 24 % Monocytes % 4 % Eosinophils % 1 % Basophils % 0 % Neutrophils # 5.2 (1.3-7.7) k/uL Lymphocytes # 1.9 (1.0-4.8) k/uL Monocytes # 0.3 (0-1.0) k/uL Eosinophils # 0.1 (0-0.7) k/uL Basophils # 0.0 (0-0.2) k/uL Hypochromasia Slight PT (9.0-12.0) sec INR (<1.2) APTT (22.0-30.0) sec Sodium 135 L (137-145) mmol/L Potassium 4.4 (3.5-5.1) mmol/L Chloride 97 L (98-107) mmol/L Carbon Dioxide 23 (22-30) mmol/L Anion Gap 15 mmol/L BUN 6 L (9-20) mg/dL Creatinine 0.54 L (0.66-1.25) mg/dL Est GFR (CKD-EPI)AfAm >90 (>60 ml/min/1.73 sqM) Est GFR (CKD-EPI)NonAf >90 (>60 ml/min/1.73 sqM) Glucose 626 H* (74-99) mg/dL Calcium 8.7 (8.4-10.2) mg/dL Magnesium 1.8 (1.6-2.3) mg/dL Total Bilirubin 0.2 (0.2-1.3) mg/dL AST 21 (17-59) U/L ALT 13 L (21-72) U/L Alkaline Phosphatase 87 (38-126) U/L Creatine Kinase 41 L (55-170) U/L Troponin I (0.000-0.034) ng/mL NT-Pro-B Natriuret Pep <11 pg/mL Total Protein 6.6 (6.3-8.2) g/dL Albumin 3.5 (3.5-5.0) g/dL Acetone, Qual (Negative) 04/26/19 04/26/19 04/26/19 Range/Units 18:40 18:40 18:40 WBC (4.0-11.0) k/uL RBC (4.30-5.90) m/uL Hgb (13.0-17.5) gm/dL Hct (39.0-53.0) % MCV (80.0-100.0) fL MCH (25.0-35.0) pg MCHC (31.0-37.0) g/dL RDW (11.5-15.5) % Plt Count (150-450) k/uL Neutrophils % % Lymphocytes % % Monocytes % % Eosinophils % % Basophils % % Neutrophils # (1.3-7.7) k/uL Lymphocytes # (1.0-4.8) k/uL Monocytes # (0-1.0) k/uL Eosinophils # (0-0.7) k/uL Basophils # (0-0.2) k/uL Hypochromasia PT 10.8 (9.0-12.0) sec INR 1.0 (<1.2) APTT 26.1 (22.0-30.0) sec Sodium (137-145) mmol/L Potassium (3.5-5.1) mmol/L Chloride (98-107) mmol/L Carbon Dioxide (22-30) mmol/L Anion Gap mmol/L BUN (9-20) mg/dL Creatinine (0.66-1.25) mg/dL Est GFR (CKD-EPI)AfAm (>60 ml/min/1.73 sqM) Est GFR (CKD-EPI)NonAf (>60 ml/min/1.73 sqM) Glucose (74-99) mg/dL Calcium (8.4-10.2) mg/dL Magnesium (1.6-2.3) mg/dL Total Bilirubin (0.2-1.3) mg/dL AST (17-59) U/L ALT (21-72) U/L Alkaline Phosphatase (38-126) U/L Creatine Kinase (55-170) U/L Troponin I <0.012 (0.000-0.034) ng/mL NT-Pro-B Natriuret Pep pg/mL Total Protein (6.3-8.2) g/dL Albumin (3.5-5.0) g/dL Acetone, Qual Negative (Negative) - EKG Data EKG shows normal: sinus rhythm (Sinus tachycardia 104 MD interval 136 QRS 90 QT since QTC 328/[address] configuration) Critical Care Time Critical Care Time: Yes Critical Care Time: 35 evidence of critical care time which includes initial presentation with history physical labs x-rays multiple reevaluation the patient responsive therapy review of old charting discussed with the main physician admission orders and documentation of the above Disposition Clinical Impression: Cystic fibrosis exacerbation, Acute asthmatic bronchitis, Adult respiratory distress syndrome, Hyperglycemia, Dehydration Disposition: ADMITTED IP TO THIS HOSP Condition: Fair Referrals: None,Stated [Primary Care Provider] - 1-2 days
[2019-04-26 19:00] LABS: Basophils % (A) 0 %; Eosinophils # (A) 0.1 k/uL (0-0.7); Eosinophils % (A) 1 %; HGB 13.7 gm/dL (13.0-17.5); Hypochromasia Slight; Lymphocytes # (A) 1.9 k/uL (1.0-4.8); Lymphocytes % (A) 24 %; MCH 27.7 pg (25.0-35.0); MCHC 30.4 g/dL (31.0-37.0); Mean Platelet Volume 6.7; Monocytes # (A) 0.3 k/uL (0-1.0); Monocytes % (A) 4 %; Neutrophils # (A) 5.2 k/uL (1.3-7.7); Neutrophils % (A) 68 %; Platelet Count 433 k/uL (150-450); RBC 4.94 m/uL (4.30-5.90); RDW 14.3 % (11.5-15.5); WBC 7.6 k/uL (4.0-11.0)
[2019-04-26 19:02] LABS: MCV 91.1 fL (80.0-100.0)
[2019-04-26 19:10] LABS: Partial Thromboplastin Time 26.1 sec (22.0-30.0); Prothrombin Time 10.8 sec (9.0-12.0)
--- NOTE | 2019-04-26 19:10 | XR ---
EXAMINATION TYPE: XR chest 2V DATE OF EXAM: 04/26/2019 COMPARISON: 03/25/2019 HISTORY: Short of breath TECHNIQUE: Frontal and lateral views of the chest are obtained. FINDINGS: There is extensive coarse interstitial infiltrate throughout the lungs. There is some coal escent density right paratracheal region. Heart size is normal. There is no heart failure. There is n o pleural effusion. IMPRESSION: Extensive interstitial lung disease unchanged compared to last exam and consistent with cystic fibrosis. Normal heart. No new pulmonary density compared to old exam.
[2019-04-26 19:20] LABS: ALT 13 U/L (21-72); AST 21 U/L (17-59); African American GFR (CKD) >90 (>60 ml/min/1.73 sqM); Albumin 3.5 g/dL (3.5-5.0); Alkaline Phosphatase 87 U/L (38-126); Anion Gap 15 mmol/L; Blood Urea Nitrogen 6 mg/dL (9-20); Calcium 8.7 mg/dL (8.4-10.2); Carbon Dioxide 23 mmol/L (22-30); Chloride 97 mmol/L (98-107); Creatine Kinase 41 U/L (55-170); Magnesium 1.8 mg/dL (1.6-2.3); Potassium 4.4 mmol/L (3.5-5.1); Sodium 135 mmol/L (137-145); Total Bilirubin 0.2 mg/dL (0.2-1.3); Total Protein 6.6 g/dL (6.3-8.2)
[2019-04-26 19:28] LABS: Glucose 626 mg/dL (74-99)
[2019-04-26] MEDS ORDERED: SODIUM CHLORIDE 0.9% 1,000 ML IV STA ×2 (19:33)
[2019-04-26] MEDS ORDERED: INSULIN REGULAR 100 UNIT/ML VIAL IV ONE (19:33)
[2019-04-26] MEDS ORDERED: LEVOFLOXACIN 750MG-D5W PMX 750 MG in DEXTROSE/WATER 1 150ML.BAG IVPB STA (20:17)
[2019-04-26 20:58] LABS: Glucose,Whole Blood 443 mg/dL (75-99)
[2019-04-26] MEDS ORDERED: INSULIN DETEMIR (LEVEMIR) 100 UNIT/ML SYR SQ SCH (21:00)
[2019-04-26] MEDS ORDERED: LIPASE 5,000/PROTEASE 17,000/AMYLASE 24,000 PO SCH (22:00)
[2019-04-26 22:48] LABS: Glucose,Whole Blood 286 mg/dL (75-99)
[2019-04-26] MEDS: INSULIN ASPART (NovoLOG) 100 UNIT/ML VIAL SQ SCH (23:13)
[2019-04-26] MEDS: IPRATROPIUM-ALBUTEROL 3 ML NEB INHALATION SCH (23:25)
[2019-04-27 02:29] LABS: Glucose,Whole Blood 85 mg/dL (75-99)
[2019-04-27] MEDS: IPRATROPIUM-ALBUTEROL 3 ML NEB INHALATION SCH ×6 (03:02→23:00)
[2019-04-27] MEDS: INSULIN ASPART (NovoLOG) 100 UNIT/ML VIAL SQ SCH ×4 (06:46→21:49)
[2019-04-27] MEDS: LEVOFLOXACIN 500 MG TAB PO SCH (07:04)
[2019-04-27] MEDS: CREON 24000 UNIT PO SCH ×4 (07:05→21:49)
[2019-04-27 07:22] LABS: Glucose,Whole Blood 55 mg/dL (75-99)
[2019-04-27 07:22] LABS: Glucose,Whole Blood 94 mg/dL (75-99)
[2019-04-27 07:22] LABS: Glucose,Whole Blood 48 mg/dL (75-99)
[2019-04-27] MEDS ORDERED: DORNASE ALFA 1 MG/ML 2.5 ML AMP INHALATION SCH (08:00)
[2019-04-27] MEDS: HYPERTONIC SALINE 3% NEBULIZ 4 ML NEBU INHALATION SCH ×3 (08:07→19:36)
[2019-04-27] MEDS: DORNASE ALFA 1 MG/ML 2.5 ML AMP INHALATION SCH (08:08)
--- NOTE | 2019-04-27 10:58 | P.CNPUL ---
History of Present Illness Consult date: 04/27/19 Requesting physician: Marii Iglesias Reason for consult: dyspnea, cough Chief complaint: Cough, shortness of breath, phlegm production, fever History of present illness: This is a 18-year-old white male with history of cystic fibrosis, diabetes mellitus, depression, previous history of MRSA infection, who presented to the emergency department on 04/26/2019 with complaints of one week's worth of worsening shortness of breath, cough, congestion, production of green phlegm, and fever and chills earlier in the week. Also complained of some abdominal aches, but no nausea, no vomiting or diarrhea. He states he has been compliant with all his medications, pancreatic enzymes, nebulized bronchodilators. Just recently obtained health care coverage again, and is planning on getting established at the cystic fibrosis clinic at the [facility]. Does not have a primary care doctor in the area. We have previously seen this gentleman in consultation for pulmonary infections, and episodes of DKA. Patient is on nebulized hypertonic saline, Pulmozyme, at home, and he has a CPT vest that he regularly uses. He states he has been out of his Pulmozyme. Chest x-ray was completed showing extensive interstitial lung disease stable from previous chest x-ray and consistent with history of cystic fibrosis, no new pulmonary density. Patient has been admitted to the hospital for inpatient treatment, has been started on Levaquin, nebulized bronchodilators, Pulmozyme and nebulized hypertonic salin, was given IV fluids. Lab work showed white blood cell count of 7.6, hemoglobin of 13.7, platelet count of 433, renal profile was within normal limits, sodium was 135, potassium is 4.4, chloride is 97, BUN is 6 and creatinine 0.54, glucose was 626, troponin was negative 1, pr oBNP was less than 11, serum acetone negative. Review of Systems All systems: negative Constitutional: Denies chills, Denies fever Eyes: denies blurred vision, denies pain Ears, nose, mouth and throat: Denies headache, Denies sore throat Cardiovascular: Denies chest pain, Denies shortness of breath Respiratory: Reports congestion, Reports cough, Reports cough with sputum, Reports dyspnea, Reports respiratory infections Gastrointestinal: Denies abdominal pain, Denies diarrhea, Denies nausea, Denies vomiting Musculoskeletal: Denies myalgias Integumentary: Denies pruritus, Denies rash Neurological: Denies numbness, Denies weakness Psychiatric: Denies anxiety, Denies depression Endocrine: Denies fatigue, Denies weight change Past Medical History Past Medical History: Diabetes Mellitus Additional Past Medical History / Comment(s): Cystic Fibrosis History of Any Multi-Drug Resistant Organisms: MRSA Date of last positivie culture/infection: 09/24/16 MDRO Source:: Abdominal Fluid Past Surgical History: No Surgical Hx Reported Additional Past Surgical History / Comment(s): feeding tube, port (removed) Past Anesthesia/Blood Transfusion Reactions: No Reported Reaction Past Psychological History: Depression Additional Psychological History / Comment(s): Lives with friends. single. no children. No tobacco use. just moved back from [facility] Smoking Status: Never smoker Past Alcohol Use History: None Reported Past Drug Use History: None Reported - Past Family History Father History Unknown: Yes Additional Family Medical History / Comment(s): States that he was adopted, but says that he thinks there isnt any family history on either side. Medications and Allergies Home Medications Medication Instructions Recorded Confirmed Type Lipase/Protease/Amylase [Creon Dr 96,000 units PO QID 06/15/15 04/26/19 History 24,000 Units Capsule] Ergocalciferol [Vitamin D2 50,000 unit PO WE 02/17/19 04/26/19 History (DRISDOL)] Hypertonic Saline 3% Nebuliz 4 ml INHALATION RT-BID@1200,1900 02/17/19 04/26/19 History INSULIN LISPRO (HumaLOG) [humaLOG] See Protocol SQ AC-TID 02/17/19 04/26/19 History Insulin Glargine [Lantus] 50 units SQ HS 03/25/19 04/26/19 History Pulmozyme 1 vial INHALATION RT-DAILY 03/25/19 04/26/19 History Albuterol Nebulized [Ventolin 2.5 mg INHALATION RT-Q4H PRN 04/26/19 04/26/19 History Nebulized] Allergies Allergy/AdvReac Type Severity Reaction Status Date / Time sulfamethoxazole Allergy Unknown Verified 04/26/19 20:08 [From Bactrim] trimethoprim [From Bactrim] Allergy Unknown Verified 04/26/19 20:08 vancomycin AdvReac Rash/Hives Verified 04/26/19 20:08 Physical Exam Vitals: Vital Signs Temp Pulse Pulse Resp BP BP Pulse Ox 04/27/19 08:30 110 H 04/27/19 08:21 110 H 04/27/19 08:08 104 H 04/27/19 08:00 18 04/27/19 05:00 97.8 F 92 18 101/58 95 04/27/19 03:15 102 H 04/27/19 03:02 104 H 93 L 04/26/19 23:37 88 04/26/19 23:25 93 96 04/26/19 23:00 98.3 F 90 20 108/69 95 04/26/19 21:48 98.5 F 102 H 20 101/73 96 04/26/19 19:42 112 H 04/26/19 19:31 108 H 04/26/19 19:07 24 04/26/19 19:00 105 H 108/71 94 L 04/26/19 18:52 102 H 04/26/19 18:43 105 H 04/26/19 18:06 98.5 F 128 H 20 115/75 94 L Intake and Output 04/26/19 04/27/19 04/27/19 22:59 06:59 14:59 Intake Total 1100 500 Balance 1100 500 Intake: Amount of Fluid Infused ( 1100 ml) Oral 500 Other: # Voids 1 Weight 54.431 kg GENERAL EXAM: Alert, pleasant, 18-year-old white male, resting in bed, currently on 2 L of oxygen comfortable in no apparent distress. HEAD: Normocephalic/atraumatic. EYES: Normal reaction of pupils, equal size. Conjunctiva pink, sclera white. NOSE: Clear with pink turbinates. THROAT: No erythema or exudates. NECK: No masses, no JVD, no thyroid enlargement, no adenopathy. CHEST: No chest wall deformity. Symmetrical expansion. LUNGS: Equal air entry with diffuse rhonchi CVS: Regular rate and rhythm, normal S1 and S2, no gallops, no murmurs, no rubs ABDOMEN: Soft, nontender. No hepatosplenomegaly, normal bowel sounds, no guarding or rigidity. EXTREMITIES: No clubbing, no edema, no cyanosis, 2+ pulses and upper and lower extremities. MUSCULOSKELETAL: Muscle strength and tone normal. SPINE: No scoliosis or deformity SKIN: No rashes CENTRAL NERVOUS SYSTEM: Alert and oriented -3. No focal deficits, tone is normal in all 4 extremities. PSYCHIATRIC: Alert and oriented -3. Appropriate affect. Intact judgment and insight. Results - Laboratory Findings CBC and BMP: 04/26/19 18:40 04/26/19 18:40 PT/INR, D-dimer PT 10.8 sec (9.0-12.0) 04/26/19 18:40 INR 1.0 (<1.2) 04/26/19 18:40 Abnormal lab findings: Abnormal Labs 04/26/19 04/26/19 04/26/19 18:40 18:40 20:56 MCHC 30.4 L Sodium 135 L Chloride 97 L BUN 6 L Creatinine 0.54 L Glucose 626 H* POC Glucose (mg/dL) 443 H ALT 13 L Creatine Kinase 41 L 04/26/19 04/27/19 04/27/19 22:41 06:44 07:02 MCHC Sodium Chloride BUN Creatinine Glucose POC Glucose (mg/dL) 286 H 48 L 55 L ALT Creatine Kinase - Diagnostic Findings Chest x-ray: report reviewed, image reviewed Assessment and Plan Plan: Assessment: #1. Acute dyspnea related to acute tracheobronchitis, chest x-ray showed chronic extensive fibrotic changes, but no acute pulmonary process. #2. History of cystic fibrosis #3. Insulin-dependent diabetes mellitus #4. History of MRSA in the abdominal wall near previous site of the PEG tube insertion in 2017 #5. Chronic pancreatic insufficiency #6. Hyperglycemia, with no evidence of DKA Plan: We'll continue the Levaquin, we'll add Zyvox for possibility of underlying MRSA tracheobronchitis, no acute pulmonary process evident on the chest x-ray, will continue with nebulized bronchodilators, continue with nebulized hypertonic saline and Pulmozyme. We'll obtain sputum culture, home meds have been reordered, continue with pancreatic enzymes. Patient's family is supposed to bring his CPT vest this afternoon. We'll resume CPT. We'll continue to follow I performed a history & physical examination of the patient and discussed their management with my nurse practitioner, Carlita Guido. I reviewed the nurse practitioner's note and agree with the documented findings and plan of care. Lung sounds are positive for diffuse wheezes and rhonchi. The findings and the impression was discussed with the patient. I attest to the documentation by the nurse practitioner. Time with Patient: Greater than 30
[2019-04-27 11:11] LABS: Glucose,Whole Blood 110 mg/dL (75-99)
[2019-04-27] MEDS: LINEZOLID 600 MG TAB PO SCH ×2 (11:53→21:50)
[2019-04-27 11:55] LABS: Glucose,Whole Blood 148 mg/dL (75-99)
[2019-04-27 12:26] VITALS: BMI 18.2
--- NOTE | 2019-04-27 14:54 | HP ---
HISTORY AND PHYSICAL DATE OF SERVICE: 04/27/2019 CHIEF COMPLAINT: 1. Shortness of breath. 2. Cough and sputum. HISTORY OF PRESENT ILLNESS: This 18-year-old gentleman with a past medical history of multiple medical problems, history of diabetes, cystic fibrosis, history of depression, being followed by no primary physician in the outpatient setting, apparently was being followed with [facility] previously. The patient has moved out to [place] and just now came back and patient is trying to establish relationship with [facility] at this time. There is no history of fever, rigors or chills. No history of headache, loss of consciousness or seizures. Patient is complaining of increased shortness of breath with cough with green phlegm and the patient also had a fever and the patient came to [facility] and was admitted for further evaluation and treatment. Chest x-ray showed bilateral lesions. Otherwise, the glucose also found to be 626 with no evidence of ketosis with hyperosmolar state. There is no history of fever, rigors, or chills at this time. PAST MEDICAL HISTORY: History of diabetes type 1, cystic fibrosis, history of MRSA, history of depression. MEDICATIONS: Prior to admission include: 1. Pulmozyme 1 vial daily. 2. Creon 96,000 q.i.d. 3. Lantus 50 units subcu q.h.s. 4. Humalog scale. 5. Hypertonic saline 3% nebulizer b.i.d. 6. Drisdol [id number] p.o. Sunday. 7. Ventolin 2.5 q.4 p.r.n. ALLERGIES: SULFAMETHOXAZOLE TRIMETHOPRIM. VANCOMYCIN FAMILY HISTORY: The patient is adopted. SOCIAL HISTORY: No history of smoking. No history of alcohol intake. REVIEW OF SYSTEMS: ENT: No diminished hearing. No diminished vision. CARDIOVASCULAR as mentioned earlier. RESPIRATORY: As mentioned earlier. GI no nausea or vomiting. no dysuria or hematuria. NERVOUS SYSTEMS: No numbness or weakness. ALLERGIES: No asthma or hayfever. MUSCULOSKELETAL as mentioned earlier. HEMATOLOGY/ONCOLOGY: No history of anemia. ENDOCRINE: Diabetes type 1. CONSTITUTIONAL: As mentioned earlier. DERMATOLOGY: Negative. RHEUMATOLOGY negative. PSYCHIATRY as mentioned earlier. NEUROLOGY negative. PHYSICAL EXAMINATION: Alert and oriented x3. Pulse is 110. Blood pressure 110/58, respiration 18, temperature 97.8, pulse ox 94% on 2 L. HEENT: Conjunctivae normal. NECK: No jugular venous distention. CARDIOVASCULAR: S1, S2 muffled. RESPIRATORY: Breath sounds diminished in the bases. Bilateral scattered rhonchi and crackles and a few basal crackles also heard. No bronchial breath sounds. ABDOMEN: Soft, nontender. No mass palpable. LEGS: No edema. No swelling. NERVOUS SYSTEM: Higher functions as mentioned earlier. Moves all 4 limbs. No focal motor or sensory deficits. SKIN: No ulcer, no rashes and no bleeding. JOINTS: No active deforming arthropathy. LABS: CBC within normal limits. Sodium 132, potassium 4.4. Glucose 626. Chest x-ray, extensive interstitial lung disease. ASSESSMENT: 1. Cystic fibrosis, acute exacerbation, with acute bilateral pneumonia possibly gram- negative. 2. Diabetes mellitus type 1, uncontrolled with hyperglycemia with no evidence of ketosis. 3. Hyponatremia. 4. History of MRSA. 5. History of depression. RECOMMENDATIONS AND DISCUSSION: In this 18-year-old gentleman who presented with multiple medical issues, at this time, I recommend to continue current management and will initiate broad-spectrum IV antibiotics. Otherwise, we will recommend Infectious Disease and as well as Infectious Disease and as well as Pulmonary consultations. Otherwise CT DVT prophylaxis. Guarded prognosis because of multiple complex medical issues. Also recommend the patient follow up with primary physician in the outpatient setting and as mentioned earlier, patient is trying to establish the appointment with [facility] as well. Prognosis guarded because of multiple complex medical issues. Further recommendations to follow. MMODL / IJN: [id number] / MTDD
[2019-04-27] MEDS: PIPERACILLIN-TAZOBACTAM 3.375 GM in SODIUM CHLORIDE 0.9% 100 ML IVPB SCH (15:56)
[2019-04-27 17:10] LABS: Glucose,Whole Blood 326 mg/dL (75-99)
[2019-04-27 20:59] LABS: Glucose,Whole Blood 528 mg/dL (75-99)
[2019-04-27 20:59] LABS: Glucose,Whole Blood 568 mg/dL (75-99)
[2019-04-27] MEDS ORDERED: INSULIN DETEMIR (LEVEMIR) 100 UNIT/ML SYR SQ SCH (21:00)
[2019-04-27] MEDS ORDERED: INSULIN ASPART (NovoLOG) 100 UNIT/ML VIAL SQ ONE (21:06)
[2019-04-27] MEDS: HEPARIN SODIUM,PORCINE 5,000 UNIT/ML 1 ML VIAL SQ SCH (21:52)
[2019-04-28] MEDS: PIPERACILLIN-TAZOBACTAM 3.375 GM in SODIUM CHLORIDE 0.9% 100 ML IVPB SCH ×3 (00:26→15:55)
[2019-04-28 02:12] LABS: Glucose,Whole Blood 160 mg/dL (75-99)
[2019-04-28] MEDS ORDERED: INSULIN DETEMIR (LEVEMIR) 100 UNIT/ML SYR SQ SCH (04:25)
[2019-04-28] MEDS: IPRATROPIUM-ALBUTEROL 3 ML NEB INHALATION SCH ×6 (04:43→23:49)
[2019-04-28 06:54] LABS: Glucose,Whole Blood 50 mg/dL (75-99)
[2019-04-28 07:15] LABS: Glucose,Whole Blood 74 mg/dL (75-99)
[2019-04-28] MEDS: INSULIN ASPART (NovoLOG) 100 UNIT/ML VIAL SQ SCH ×5 (08:07→21:06)
[2019-04-28] MEDS: DORNASE ALFA 1 MG/ML 2.5 ML AMP INHALATION SCH (08:17)
[2019-04-28] MEDS: CREON 24000 UNIT PO SCH ×4 (09:01→21:00)
[2019-04-28] MEDS: HEPARIN SODIUM,PORCINE 5,000 UNIT/ML 1 ML VIAL SQ SCH ×2 (09:02→20:28)
[2019-04-28] MEDS: PANTOPRAZOLE 40 MG TABLET PO SCH (09:02)
[2019-04-28] MEDS: LEVOFLOXACIN 500 MG TAB PO SCH (09:02)
[2019-04-28] MEDS: LINEZOLID 600 MG TAB PO SCH ×2 (09:38→20:54)
[2019-04-28 09:47] LABS: Basophils % (A) 0 %; Eosinophils # (A) 0.1 k/uL (0-0.7); Eosinophils % (A) 1 %; HCT 43.5 % (39.0-53.0); HGB 13.6 gm/dL (13.0-17.5); Lymphocytes # (A) 1.4 k/uL (1.0-4.8); Lymphocytes % (A) 22 %; MCH 28.1 pg (25.0-35.0); MCHC 31.2 g/dL (31.0-37.0); Mean Platelet Volume 6.5; Monocytes # (A) 0.2 k/uL (0-1.0); Monocytes % (A) 3 %; Neutrophils # (A) 4.4 k/uL (1.3-7.7); Neutrophils % (A) 72 %; Platelet Count 430 k/uL (150-450); RBC 4.83 m/uL (4.30-5.90); RDW 14.5 % (11.5-15.5); WBC 6.1 k/uL (4.0-11.0)
[2019-04-28 10:19] LABS: African American GFR (CKD) >90 (>60 ml/min/1.73 sqM); Anion Gap 8 mmol/L; Blood Urea Nitrogen 12 mg/dL (9-20); Calcium 9.3 mg/dL (8.4-10.2); Carbon Dioxide 30 mmol/L (22-30); Chloride 98 mmol/L (98-107); Glucose 498 mg/dL (74-99); Sodium 136 mmol/L (137-145)
[2019-04-28] MEDS: HYPERTONIC SALINE 3% NEBULIZ 4 ML NEBU INHALATION SCH ×2 (11:48→20:45)
[2019-04-28 12:08] LABS: Glucose,Whole Blood 379 mg/dL (75-99)
--- NOTE | 2019-04-28 12:40 | P.PN ---
Subjective Progress Note Date: 04/28/19 Principal diagnosis: Acute tracheobronchitis This is a 18-year-old white male with history of cystic fibrosis, diabetes mellitus, depression, previous history of MRSA infection, who presented to the emergency department on 04/26/2019 with complaints of one week's worth of worsen ing shortness of breath, cough, congestion, production of green phlegm, and fever and chills earlier in the week. Also complained of some abdominal aches, but no nausea, no vomiting or diarrhea. He states he has been compliant with all his medications, pancreatic enzymes, nebulized bronchodilators. Just recently obtained health care coverage again, and is planning on getting established at the cystic fibrosis clinic at the [facility]. Does not have a primary care doctor in the area. We have previously seen this gentleman in consultation for pulmonary infections, and episodes of DKA. Patient is on nebulized hypertonic saline, Pulmozyme, at home, and he has a CPT vest that he regularly uses. He states he has been out of his Pulmozyme. Chest x-ray was completed showing extensive interstitial lung disease stable from previous chest x-ray and consistent with history of cystic fibrosis, no new pulmonary density. Patient has been admitted to the hospital for inpatient treatment, has been started on Levaquin, nebulized bronchodilators, Pulmozyme and nebulized hypertonic salin, was given IV fluids. Lab work showed white blood cell count of 7.6, hemoglobin of 13.7, platelet count of 433, renal profile was within normal limits, sodium was 135, potassium is 4.4, chloride is 97, BUN is 6 and creatinine 0.54, glucose was 626, troponin was negative 1, proBNP was less than 11, serum acetone negative. On 04/28/2019 patient seen in follow-up on medical surgical floor. He states his dyspnea has improved, lung sounds are diminished, and bronchospastic on [facility] exhale maneuver, occasional cough with production of green colored sputum. Culture showed no growth at the 24-hour kaushal, sputum culture has been sent, pending at this time, no fever or chills, today's labs have been reviewed, CBC is within normal limits, BMP was unremarkable. No complaints of chest pain. Empiric antibiotics in the form of Levaquin, yesterday we added Zyvox and Zosyn has been added, ID service consultation was requested, and is pending at this time. Objective - Vital Signs Vital signs: Vital Signs Temp 97.1 F L 04/28/19 05:00 Pulse 100 04/28/19 12:14 Resp 18 04/28/19 08:00 BP 108/65 04/28/19 05:00 Pulse Ox 97 04/28/19 05:00 Intake & Output 04/27/19 04/28/19 04/28/19 18:59 06:59 18:59 Intake Total 900 Balance 900 Weight 52.798 kg Intake: Oral 900 Other: Voiding Method Toilet # Voids 2 1 # Bowel Movements 0 - Exam GENERAL EXAM: Alert, pleasant, 18-year-old white male, resting in bed, currently on 2 L of oxygen comfortable in no apparent distress. HEAD: Normocephalic/atraumatic. EYES: Normal reaction of pupils, equal size. Conjunctiva pink, sclera white. NOSE: Clear with pink turbinates. THROAT: No erythema or exudates. NECK: No masses, no JVD, no thyroid enlargement, no adenopathy. CHEST: No chest wall deformity. Symmetrical expansion. LUNGS: Equal air entry with diffuse rhonchi CVS: Regular rate and rhythm, normal S1 and S2, no gallops, no murmurs, no rubs ABDOMEN: Soft, nontender. No hepatosplenomegaly, normal bowel sounds, no guarding or rigidity. EXTREMITIES: No clubbing, no edema, no cyanosis, 2+ pulses and upper and lower extremities. MUSCULOSKELETAL: Muscle strength and tone normal. SPINE: No scoliosis or deformity SKIN: No rashes CENTRAL NERVOUS SYSTEM: Alert and oriented -3. No focal deficits, tone is normal in all 4 extremities. PSYCHIATRIC: Alert and oriented -3. Appropriate affect. Intact judgment and insight. - Labs CBC & Chem 7: 04/28/19 09:25 04/28/19 09:25 Labs: Abnormal Lab Results - Last 24 Hours (Table) 04/27/19 04/27/19 04/27/19 Range/Units 16:52 20:42 20:44 Sodium (137-145) mmol/L Glucose (74-99) mg/dL POC Glucose (mg/dL) 326 H 568 H 528 H (75-99) mg/dL 04/28/19 04/28/19 04/28/19 Range/Units 02:10 06:43 07:01 Sodium (137-145) mmol/L Glucose (74-99) mg/dL POC Glucose (mg/dL) 160 H 50 L 74 L (75-99) mg/dL 04/28/19 04/28/19 Range/Units 09:25 11:52 Sodium 136 L (137-145) mmol/L Glucose 498 H (74-99) mg/dL POC Glucose (mg/dL) 379 H (75-99) mg/dL Microbiology - Last 24 Hours (Table) 04/26/19 18:40 Blood Culture - Preliminary Blood No Growth after 24 hours Assessment and Plan Plan: Assessment: #1. Acute dyspnea related to acute tracheobronchitis, chest x-ray showed chronic extensive fibrotic changes, but no acute pulmonary process. #2. History of cystic fibrosis #3. Insulin-dependent diabetes mellitus #4. History of MRSA in the abdominal wall near previous site of the PEG tube insertion in 2017 #5. Chronic pancreatic insufficiency #6. Hyperglycemia, with no evidence of DKA Plan: Continue with empiric antibiotics, awaiting ID service evaluation, had oral prednisone at 30 mg daily, patient is bronchospastic on today's exam, overall he is feeling better, there have been no fever or chills, sputum culture is pending, blood culture showed no growth. Hemodynamically stable, continue with Pulmozyme, and hypertonic saline nebulized treatments continue. We will add Sy david. I performed a history & physical examination of the patient and discussed their management with my nurse practitioner, Carlita Guido. I reviewed the nurse practitioner's note and agree with the documented findings and plan of care. Lung sounds are positive for diffuse wheezes and rhonchi. The findings and the impression was discussed with the patient. I attest to the documentation by the nurse practitioner. Time with Patient: Less than 30
[2019-04-28] MEDS: predniSONE 10 MG TAB PO SCH (12:57)
[2019-04-28 14:17] LABS: Glucose,Whole Blood 453 mg/dL (75-99)
[2019-04-28] MEDS ORDERED: INSULIN REGULAR 100 UNIT in SODIUM CHLORIDE 0.9% 100 ML IV SCH (15:30)
[2019-04-28] MEDS ORDERED: INSULIN ASPART (NovoLOG) 100 UNIT/ML VIAL SQ ONE (15:46)
--- NOTE | 2019-04-28 16:08 | P.PN ---
Subjective Progress Note Date: 04/28/19 Principal diagnosis: This is a 18-year-old male with a past medical history of multiple complex medical problems who was admitted for shortness of breath, cystic fibrosis, and diabetes and is being followed closely. Pulmonary is following. Oral prednisone was added to the medications today per pulmonary. Patient is still having shortness of breath when coughing with some mucus and phlegm production today. Patient blood sugars continue to be uncontrolled and is being monitored closely. Patient denies any chest pain or palpitations at this time. Patient denies any nausea or vomiting and is tolerating diet. Patient states that at home he usually counts calories and controls his blood sugars this way. Patient is afebrile today. Guarded prognosis Active Medications Generic Name Dose Route Start Last Admin Trade Name Freq PRN Reason Stop Dose Admin Albuterol/Ipratropium 3 ml 04/27/19 00:00 04/28/19 11:48 Duoneb 0.5 Mg-3 Mg/3 Ml Soln INHALATION 3 ml RT-Q4H RANDA Administration Budesonide/Formoterol Fumarate 2 puff 04/28/19 20:00 Symbicort 160-4.5 Mcg Inhaler INHALATION RT-BID RANDA Dornase Davian 2.5 mg 04/27/19 08:00 04/28/19 08:17 Pulmozyme INHALATION 2.5 mg RT-DAILY RANDA Administration Ergocalciferol 50,000 unit 04/30/19 09:00 Vitamin D2 PO We@0900 RANDA Heparin Sodium (Porcine) 5,000 unit 04/27/19 21:00 04/28/19 09:02 Heparin SQ Not Given Q12HR RANDA Piperacillin Sod/Tazobactam 100 mls @ 25 mls/hr 04/27/19 16:00 04/28/19 15:55 Sod 3.375 gm/ Sodium Chloride IVPB 25 mls/hr Q8HR RANDA Administration Insulin Aspart 12 unit 04/28/19 15:46 Novolog SQ 04/28/19 15:47 ONCE ONE Insulin Aspart 0 unit 04/28/19 17:30 Novolog SQ ACHS REPLACED BY [facility] Protocol Insulin Detemir 25 unit 04/28/19 21:00 Levemir SQ BID RANDA Levofloxacin 500 mg 04/27/19 09:00 04/28/19 09:02 Levaquin PO 05/04/19 09:01 500 mg DAILY RANDA Administration Linezolid 600 mg 04/27/19 11:00 04/28/19 09:38 Zyvox PO 600 mg Q12HR RANDA Administration Creon [id number] Unit 4 each 04/27/19 09:00 04/28/19 12:37 Capsules PO 4 each QID RANDA Administration Pantoprazole Sodium 40 mg 04/28/19 07:30 04/28/19 09:02 Protonix PO 40 mg AC-BRKFST RANDA Administration Prednisone 30 mg 04/28/19 11:00 04/28/19 12:57 PO 30 mg DAILY RANDA Administration Sodium Chloride 4 ml 04/27/19 12:00 04/28/19 11:48 Hypertonic Saline 3% Nebuliz INHALATION 4 ml RT-BID@1200,1900 RANDA Administration Objective - Vital Signs Vital signs: Vital Signs Temp 98.2 F 04/28/19 12:24 Pulse 115 H 04/28/19 12:24 Resp 18 04/28/19 15:14 BP 126/81 04/28/19 12:24 Pulse Ox 93 L 04/28/19 12:24 Intake & Output 04/27/19 04/28/19 04/28/19 18:59 06:59 18:59 Intake Total 900 Balance 900 Weight 52.798 kg Intake: Oral 900 Other: Voiding Method Toilet # Voids 2 1 2 # Bowel Movements 0 - Exam Gen: This is a 18-year-old male in no acute distress. Vital signs are stable. Temp is 98.2F, pulse is 92, respirations are 18, blood pressure is 126/81, oxygen saturation is 93% on room air. HEENT: Head is atraumatic, normocephalic. Pupils equal, round. Sclerae is anicteric. NECK: Supple. No JVD. No lymphadenopathy. No thyromegaly. LUNGS: Lung sounds are diminished at the bases with a few scattered rhonchi and crackles noted. No intercostal retractions. HEART: S1 and S2 are muffled. No murmur. ABDOMEN: Soft. Bowel sounds are present. No masses. No tenderness. EXTREMITIES: No pedal edema. No calf tenderness. NEUROLOGICAL: Patient is awake, alert and oriented x3. Cranial nerves 2 through 12 are grossly intact. No focal deficits - Labs CBC & Chem 7: 04/28/19 09:25 04/28/19 09:25 Labs: Abnormal Lab Results - Last 24 Hours (Table) 04/27/19 04/27/19 04/27/19 Range/Units 16:52 20:42 20:44 Sodium (137-145) mmol/L Glucose (74-99) mg/dL POC Glucose (mg/dL) 326 H 568 H 528 H (75-99) mg/dL 04/28/19 04/28/19 04/28/19 Range/Units 02:10 06:43 07:01 Sodium (137-145) mmol/L Glucose (74-99) mg/dL POC Glucose (mg/dL) 160 H 50 L 74 L (75-99) mg/dL 04/28/19 04/28/19 04/28/19 Range/Units 09:25 11:52 14:14 Sodium 136 L (137-145) mmol/L Glucose 498 H (74-99) mg/dL POC Glucose (mg/dL) 379 H 453 H (75-99) mg/dL Microbiology - Last 24 Hours (Table) 04/26/19 18:40 Blood Culture - Preliminary Blood No Growth after 24 hours Assessment and Plan Assessment: Cystic fibrosis, acute exacerbation, with acute bilateral pneumonia possibly gram-negative: Sputum cultures are pending at this time. Diabetes mellitus type 1, uncontrolled with hypoglycemia with no evidence of ketosis: Patient is being monitored closely Hyponatremia, improved current potassium is 5.0 History of MRSA History of depression Recommendations and discussion Recommend to Continue current medications, management, and symptomatically treatment. Will continue IV antibiotic therapy. Infectious diseases consult. Awaiting report. Pulmonary is following. We'll continue bronchodilators and oral steroids. Will continue to monitor vital signs and labs closely. Will continue to monitor blood sugars closely and titrate as necessary. Guarded prognosis due to the complex multiple medical issues. Case management and social work are following due to no primary care provider. Further recommendations to follow.
[2019-04-28 17:06] LABS: Glucose,Whole Blood 415 mg/dL (75-99)
[2019-04-28] MEDS ORDERED: INSULIN ASPART (NovoLOG) 100 UNIT/ML VIAL SQ SCH (17:30)
[2019-04-28 20:19] LABS: Glucose,Whole Blood 430 mg/dL (75-99)
[2019-04-28] MEDS: SYMBICORT 160-4.5 MCG INHALER INHALATION SCH (20:46)
[2019-04-28] MEDS: INSULIN DETEMIR (LEVEMIR) 100 UNIT/ML SYR SQ SCH (20:54)
--- NOTE | 2019-04-29 00:13 | P.CONS ---
History of Present Illness - Reason for Consult Consult date: 04/28/19 - Chief Complaint Shortness of breath - History of Present Illness 1o-year-old male with cystic fibrosis presents to hospital with increasing shortness of breath. The patient had moved out of the area for some time and was receiving his care in [place] where he was residing. He is now back to [place] and is becoming more established. He has been seen by pulmonology but does not yet have his primary care physician. He is doing relatively well but started to have increasing amounts of shortness of breath cough sputum production malaise and GI upset. His abdominal discomfort Ciardi resolved. He is able to eat his dinner without difficulties. He seems less short of breath he has less cough and sputum production since coming in the hospital. Fever has improved but is not nearly at baseline yet. Review of Systems HEENT:Denies headache or acute visual change. Denies sinus or mouth discomforts. Denies neck stiffness or pain. Denies significant oral cavity pain. Denies difficulty on swallowing. Lungs: Chronic shortness of breath which acutely worsened had increased sputum production without hemoptysis Cardiovascular: Denies, chest pain, chest wall pain, orthopnea, or syncope but does have dyspnea with exertion Gastrointestinal: Was having difficulties with GI upset and nausea and emesis which has resolved has no hematemesis melena or hematochezia. Musculoskeletal: denies significant myalgias or arthralgias. No new joint swelling. Denies new back pain. Skin: Denies new rash or lesions. No new ulcers or wounds are related.. Neuro: Denies headache or visual change. Denies any new onset weakness or difficulty with ambulation. Denies falls or seizures. Psychiatric:Denies anxiety or depression. Endocrine: Has fatigue and weight has been stable but is low Past Medical History Past Medical History: Diabetes Mellitus Additional Past Medical History / Comment(s): Cystic Fibrosis History of Any Multi-Drug Resistant Organisms: MRSA Year Discovered:: 09/24/16 MDRO Source:: Abdominal Fluid Past Surgical History: No Surgical Hx Reported Additional Past Surgical History / Comment(s): feeding tube, port (removed) Past Anesthesia/Blood Transfusion Reactions: No Reported Reaction Past Psychological History: Depression Additional Psychological History / Comment(s): Lives with friends. single. no children. No tobacco use. just moved back from [facility] reestablishing care has not yet found a primary care doctor. No experience. No animals in the home Smoking Status: Never smoker Past Alcohol Use History: None Reported Past Drug Use History: None Reported - Past Family History Father History Unknown: Yes Additional Family Medical History / Comment(s): States that he was adopted, but says that he thinks there isnt any family history on either side. Medications and Allergies Home Medications and Allergies Comment(s): Laboratory Results WBC 6.1 k/uL (4.0-11.0) 04/28/19 09:25 RBC 4.83 m/uL (4.30-5.90) 04/28/19 09:25 Hgb 13.6 gm/dL (13.0-17.5) 04/28/19 09:25 Hct 43.5 % (39.0-53.0) 04/28/19 09:25 MCV 90.0 fL (80.0-100.0) 04/28/19 09:25 MCH 28.1 pg (25.0-35.0) 04/28/19 09:25 MCHC 31.2 g/dL (31.0-37.0) 04/28/19 09:25 RDW 14.5 % (11.5-15.5) 04/28/19 09:25 Plt Count 430 k/uL (150-450) 04/28/19 09:25 Neutrophils % 72 % 04/28/19 09:25 Lymphocytes % 22 % 04/28/19 09:25 Monocytes % 3 % 04/28/19 09:25 Eosinophils % 1 % 04/28/19 09:25 Basophils % 0 % 04/28/19 09:25 Neutrophils # 4.4 k/uL (1.3-7.7) 04/28/19 09:25 Lymphocytes # 1.4 k/uL (1.0-4.8) 04/28/19 09:25 Monocytes # 0.2 k/uL (0-1.0) 04/28/19 09:25 Eosinophils # 0.1 k/uL (0-0.7) 04/28/19 09:25 Basophils # 0.0 k/uL (0-0.2) 04/28/19 09:25 Hypochromasia Slight 04/26/19 18:40 PT 10.8 sec (9.0-12.0) 04/26/19 18:40 INR 1.0 (<1.2) 04/26/19 18:40 APTT 26.1 sec (22.0-30.0) 04/26/19 18:40 Sodium 136 mmol/L (137-145) L 04/28/19 09:25 Potassium 5.0 mmol/L (3.5-5.1) 04/28/19 09:25 Chloride 98 mmol/L (98-107) 04/28/19 09:25 Carbon Dioxide 30 mmol/L (22-30) 04/28/19 09:25 Anion Gap 8 mmol/L 04/28/19 09:25 BUN 12 mg/dL (9-20) 04/28/19 09:25 Creatinine 0.75 mg/dL (0.66-1.25) 04/28/19 09:25 Est GFR (CKD-EPI)AfAm >90 (>60 ml/min/1.73 sqM) 04/28/19 09:25 Est GFR (CKD-EPI)NonAf >90 (>60 ml/min/1.73 sqM) 04/28/19 09:25 Glucose 498 mg/dL (74-99) H 04/28/19 09:25 POC Glucose (mg/dL) 430 mg/dL (75-99) H 04/28/19 20:18 POC Glu Reconnaissance Crewmember Rachel Mireles 04/28/19 20:18 Calcium 9.3 mg/dL (8.4-10.2) 04/28/19 09:25 Magnesium 1.8 mg/dL (1.6-2.3) 04/26/19 18:40 Total Bilirubin 0.2 mg/dL (0.2-1.3) 04/26/19 18:40 AST 21 U/L (17-59) 04/26/19 18:40 ALT 13 U/L (21-72) L 04/26/19 18:40 Alkaline Phosphatase 87 U/L (38-126) 04/26/19 18:40 Creatine Kinase 41 U/L (55-170) L 04/26/19 18:40 Troponin I <0.012 ng/mL (0.000-0.034) 04/26/19 18:40 NT-Pro-B Natriuret Pep <11 pg/mL 04/26/19 18:40 Total Protein 6.6 g/dL (6.3-8.2) 04/26/19 18:40 Albumin 3.5 g/dL (3.5-5.0) 04/26/19 18:40 Acetone, Qual Negative (Negative) 04/26/19 18:40 Home Medications Medication Instructions Recorded Confirmed Type Lipase/Protease/Amylase [Creon Dr 96,000 units PO QID 06/15/15 04/26/19 History 24,000 Units Capsule] Ergocalciferol [Vitamin D2 50,000 unit PO WE 02/17/19 04/26/19 History (DRISDOL)] Hypertonic Saline 3% Nebuliz 4 ml INHALATION RT-BID@1200,1900 02/17/19 04/26/19 History INSULIN LISPRO (HumaLOG) [humaLOG] See Protocol SQ AC-TID 02/17/19 04/26/19 History Insulin Glargine [Lantus] 50 units SQ HS 03/25/19 04/26/19 History Pulmozyme 1 vial INHALATION RT-DAILY 03/25/19 04/26/19 History Albuterol Nebulized [Ventolin 2.5 mg INHALATION RT-Q4H PRN 04/26/19 04/26/19 History Nebulized] Allergies Allergy/AdvReac Type Severity Reaction Status Date / Time sulfamethoxazole Allergy Unknown Verified 04/26/19 20:08 [From Bactrim] trimethoprim [From Bactrim] Allergy Unknown Verified 04/26/19 20:08 vancomycin AdvReac Rash/Hives Verified 04/26/19 20:08 Physical Exam Vitals: Vital Signs Temp Pulse Pulse Pulse Resp BP BP 04/28/19 21:12 90 04/28/19 20:57 92 04/28/19 20:56 90 04/28/19 20:46 92 04/28/19 20:20 98.7 F 87 16 131/75 04/28/19 17:09 96 04/28/19 16:58 98 04/28/19 15:14 18 04/28/19 12:24 98.2 F 115 H 18 126/81 04/28/19 12:14 100 04/28/19 12:01 92 04/28/19 12:00 92 04/28/19 11:50 92 04/28/19 08:45 96 04/28/19 08:29 92 04/28/19 08:28 92 04/28/19 08:19 92 04/28/19 08:00 18 04/28/19 05:00 97.1 F L 71 18 108/65 Pulse Ox 04/28/19 21:12 04/28/19 20:57 04/28/19 20:56 04/28/19 20:46 04/28/19 20:20 90 L 04/28/19 17:09 04/28/19 16:58 96 04/28/19 15:14 04/28/19 12:24 93 L 04/28/19 12:14 04/28/19 12:01 04/28/19 12:00 04/28/19 11:50 04/28/19 08:45 04/28/19 08:29 04/28/19 08:28 04/28/19 08:19 04/28/19 08:00 04/28/19 05:00 97 Intake and Output 04/28/19 04/28/19 04/29/19 14:59 22:59 06:59 Other: Voiding Method Toilet Toilet # Voids 2 1 18-year-old male thin build HEENT: Anicteric conjunctiva are pink and moist nasal mucosa grossly intact without significant lesions, there is no thrush. Neck: The neck is supple without significant lymphadenopathy or thyromegaly. Lungs: Symmetrical air entry is noted, expiratory wheezes are scattered few basilar crackles are heard bilaterally. Heart: Regular rate and rhythm with an audible S1-S2, no S3 no S4. There is no significant murmur click or rub, PMI was nondisplaced. Abdomen: Positive bowel sounds soft and nontender without palpable masses or organomegaly. There was no guarding or rebound. Extremities: The upper extremities have excellent pulses they are symmetric, no significant petechiae or telangiectasia. No splinter hemorrhages were noted. The lower extremities are free from significant edema. The peripheral pulses were 2+ and symmetric. Neuro: Awake alert oriented to person place and time. There are no acute new gross focal sensory motor deficits. Results CBC & Chem 7: 04/28/19 09:25 04/28/19 09:25 Labs: Abnormal Lab Results - Last 24 Hours (Table) 04/28/19 04/28/19 04/28/19 Range/Units 02:10 06:43 07:01 Sodium (137-145) mmol/L Glucose (74-99) mg/dL POC Glucose (mg/dL) 160 H 50 L 74 L (75-99) mg/dL 04/28/19 04/28/19 04/28/19 Range/Units 09:25 11:52 14:14 Sodium 136 L (137-145) mmol/L Glucose 498 H (74-99) mg/dL POC Glucose (mg/dL) 379 H 453 H (75-99) mg/dL 04/28/19 04/28/19 Range/Units 17:04 20:18 Sodium (137-145) mmol/L Glucose (74-99) mg/dL POC Glucose (mg/dL) 415 H 430 H (75-99) mg/dL Microbiology - Last 24 Hours (Table) 04/28/19 08:43 Gram Stain - Preliminary Sputum 04/26/19 18:40 Blood Culture - Preliminary Blood No Growth after 48 hours Laboratory Results WBC 6.1 k/uL (4.0-11.0) 04/28/19 09:25 RBC 4.83 m/uL (4.30-5.90) 04/28/19 09:25 Hgb 13.6 gm/dL (13.0-17.5) 04/28/19 09:25 Hct 43.5 % (39.0-53.0) 04/28/19 09:25 MCV 90.0 fL (80.0-100.0) 04/28/19 09:25 MCH 28.1 pg (25.0-35.0) 04/28/19 09:25 MCHC 31.2 g/dL (31.0-37.0) 04/28/19 09:25 RDW 14.5 % (11.5-15.5) 04/28/19 09:25 Plt Count 430 k/uL (150-450) 04/28/19 09:25 Neutrophils % 72 % 04/28/19 09:25 Lymphocytes % 22 % 04/28/19 09:25 Monocytes % 3 % 04/28/19 09:25 Eosinophils % 1 % 04/28/19 09:25 Basophils % 0 % 04/28/19 09:25 Neutrophils # 4.4 k/uL (1.3-7.7) 04/28/19 09:25 Lymphocytes # 1.4 k/uL (1.0-4.8) 04/28/19 09:25 Monocytes # 0.2 k/uL (0-1.0) 04/28/19 09:25 Eosinophils # 0.1 k/uL (0-0.7) 04/28/19 09:25 Basophils # 0.0 k/uL (0-0.2) 04/28/19 09:25 Hypochromasia Slight 04/26/19 18:40 PT 10.8 sec (9.0-12.0) 04/26/19 18:40 INR 1.0 (<1.2) 04/26/19 18:40 APTT 26.1 sec (22.0-30.0) 04/26/19 18:40 Sodium 136 mmol/L (137-145) L 04/28/19 09:25 Potassium 5.0 mmol/L (3.5-5.1) 04/28/19 09:25 Chloride 98 mmol/L (98-107) 04/28/19 09:25 Carbon Dioxide 30 mmol/L (22-30) 04/28/19 09:25 Anion Gap 8 mmol/L 04/28/19 09:25 BUN 12 mg/dL (9-20) 04/28/19 09:25 Creatinine 0.75 mg/dL (0.66-1.25) 04/28/19 09:25 Est GFR (CKD-EPI)AfAm >90 (>60 ml/min/1.73 sqM) 04/28/19 09:25 Est GFR (CKD-EPI)NonAf >90 (>60 ml/min/1.73 sqM) 04/28/19 09:25 Glucose 498 mg/dL (74-99) H 04/28/19 09:25 POC Glucose (mg/dL) 430 mg/dL (75-99) H 04/28/19 20:18 POC Glu [employer]naissance Crewmember ID Rachel Sow 04/28/19 20:18 Calcium 9.3 mg/dL (8.4-10.2) 04/28/19 09:25 Magnesium 1.8 mg/dL (1.6-2.3) 04/26/19 18:40 Total Bilirubin 0.2 mg/dL (0.2-1.3) 04/26/19 18:40 AST 21 U/L (17-59) 04/26/19 18:40 ALT 13 U/L (21-72) L 04/26/19 18:40 Alkaline Phosphatase 87 U/L (38-126) 04/26/19 18:40 Creatine Kinase 41 U/L (55-170) L 04/26/19 18:40 Troponin I <0.012 ng/mL (0.000-0.034) 04/26/19 18:40 NT-Pro-B Natriuret Pep <11 pg/mL 04/26/19 18:40 Total Protein 6.6 g/dL (6.3-8.2) 04/26/19 18:40 Albumin 3.5 g/dL (3.5-5.0) 04/26/19 18:40 Acetone, Qual Negative (Negative) 04/26/19 18:40 Microbiology 04/28/19 08:43 Sputum Gram Stain - Preliminary 04/26/19 18:40 Blood Blood Culture - Preliminary No Growth after 48 hours Assessment and Plan (1) Cystic fibrosis exacerbation Current Visit: Yes Status: Acute Code(s): E84.9 - CYSTIC FIBROSIS, UNSPECIFIED SNOMED Code(s): 554008488 (2) MRSA (methicillin resistant staph aureus) culture positive Narrative/Plan: 18-year-old male presents to Hospital with significant worsening of the shortness of breath. As noted he has not yet set up care with a primary care physician but was seen during his last stay by pulmonary critical care. At this time. Receiving the multiple breathing treatments, antibiotic therapy is utilize with Zyvox 600 mg IV piggyback every 12 hours until we have further kelby a. He does appear to have colonization with MRSA. Potentially Xanax be transitioned to oral when he is improved to complete the course of treatment. He will need to set up outpatient follow-up with the primary care physician to hopefully improve his continuity of care and prevent further hospitalizations. High-protein diet is being interested in these resolve any nausea or emesis. Working with the team to improve his glucose control. Current Visit: No Status: Acute Code(s): Z22.322 - CARRIER OR SUSPECTED CARRIER OF METHICILLIN RESIS STAPH SNOMED Code(s): 918877732 (3) Diabetes mellitus type 2, uncontrolled Current Visit: Yes Status: Acute Code(s): E11.65 - TYPE 2 DIABETES MELLITUS WITH HYPERGLYCEMIA SNOMED Code(s): 846071329
[2019-04-29] MEDS: PIPERACILLIN-TAZOBACTAM 3.375 GM in SODIUM CHLORIDE 0.9% 100 ML IVPB SCH ×3 (00:28→17:25)
[2019-04-29 02:03] LABS: Glucose,Whole Blood 393 mg/dL (75-99)
[2019-04-29] MEDS: IPRATROPIUM-ALBUTEROL 3 ML NEB INHALATION SCH ×6 (03:31→23:19)
[2019-04-29] MEDS: SYMBICORT 160-4.5 MCG INHALER INHALATION SCH ×2 (06:54→19:19)
[2019-04-29] MEDS: DORNASE ALFA 1 MG/ML 2.5 ML AMP INHALATION SCH (06:54)
[2019-04-29 06:59] LABS: Glucose,Whole Blood 341 mg/dL (75-99)
[2019-04-29] MEDS: INSULIN ASPART (NovoLOG) 100 UNIT/ML VIAL SQ SCH ×8 (08:19→21:00)
[2019-04-29] MEDS: predniSONE 10 MG TAB PO SCH (08:20)
[2019-04-29] MEDS: LEVOFLOXACIN 500 MG TAB PO SCH (08:20)
[2019-04-29] MEDS: LINEZOLID 600 MG TAB PO SCH ×2 (08:20→21:00)
[2019-04-29] MEDS: PANTOPRAZOLE 40 MG TABLET PO SCH (08:20)
[2019-04-29] MEDS: CREON 24000 UNIT PO SCH ×3 (08:21→21:01)
[2019-04-29] MEDS: INSULIN DETEMIR (LEVEMIR) 100 UNIT/ML SYR SQ SCH ×2 (08:21→21:00)
[2019-04-29] MEDS: HEPARIN SODIUM,PORCINE 5,000 UNIT/ML 1 ML VIAL SQ SCH ×2 (08:21→21:03)
[2019-04-29 10:48] LABS: Basophils % (A) 0 %; Eosinophils # (A) 0.1 k/uL (0-0.7); Eosinophils % (A) 1 %; HCT 42.1 % (39.0-53.0); HGB 13.2 gm/dL (13.0-17.5); Lymphocytes % (A) 21 %; MCH 27.9 pg (25.0-35.0); MCHC 31.4 g/dL (31.0-37.0); MCV 88.9 fL (80.0-100.0); Mean Platelet Volume 6.7; Monocytes # (A) 0.3 k/uL (0-1.0); Monocytes % (A) 3 %; Neutrophils # (A) 6.8 k/uL (1.3-7.7); Neutrophils % (A) 73 %; Platelet Count 471 k/uL (150-450); RBC 4.73 m/uL (4.30-5.90); RDW 14.6 % (11.5-15.5); WBC 9.3 k/uL (4.0-11.0)
[2019-04-29 11:02] LABS: African American GFR (CKD) >90 (>60 ml/min/1.73 sqM); Anion Gap 14 mmol/L; Blood Urea Nitrogen 21 mg/dL (9-20); Calcium 9.8 mg/dL (8.4-10.2); Carbon Dioxide 23 mmol/L (22-30); Chloride 100 mmol/L (98-107); Glucose 372 mg/dL (74-99); Potassium 5.1 mmol/L (3.5-5.1); Sodium 137 mmol/L (137-145)
--- NOTE | 2019-04-29 11:21 | P.PN ---
Subjective Progress Note Date: 04/29/19 Principal diagnosis: Acute tracheobronchitis This is a 18-year-old white male with history of cystic fibrosis, diabetes mellitus, depression, previous history of MRSA infection, who presented to the emergency department on 04/26/2019 with complaints of one week's worth of worsen ing shortness of breath, cough, congestion, production of green phlegm, and fever and chills earlier in the week. Also complained of some abdominal aches, but no nausea, no vomiting or diarrhea. He states he has been compliant with all his medications, pancreatic enzymes, nebulized bronchodilators. Just recently obtained health care coverage again, and is planning on getting established at the cystic fibrosis clinic at the [facility]. Does not have a primary care doctor in the area. We have previously seen this gentleman in consultation for pulmonary infections, and episodes of DKA. Patient is on nebulized hypertonic saline, Pulmozyme, at home, and he has a CPT vest that he regularly uses. He states he has been out of his Pulmozyme. Chest x-ray was completed showing extensive interstitial lung disease stable from previous chest x-ray and consistent with history of cystic fibrosis, no new pulmonary density. Patient has been admitted to the hospital for inpatient treatment, has been started on Levaquin, nebulized bronchodilators, Pulmozyme and nebulized hypertonic salin, was given IV fluids. Lab work showed white blood cell count of 7.6, hemoglobin of 13.7, platelet count of 433, renal profile was within normal limits, sodium was 135, potassium is 4.4, chloride is 97, BUN is 6 and creatinine 0.54, glucose was 626, troponin was negative 1, proBNP was less than 11, serum acetone negative. On 04/28/2019 patient seen in follow-up on medical surgical floor. He states his dyspnea has improved, lung sounds are diminished, and bronchospastic on [facility] exhale maneuver, occasional cough with production of green colored sputum. Culture showed no growth at the 24-hour kaushal, sputum culture has been sent, pending at this time, no fever or chills, today's labs have been reviewed, CBC is within normal limits, BMP was unremarkable. No complaints of chest pain. Empiric antibiotics in the form of Levaquin, yesterday we added Zyvox and Zosyn has been added, ID service consultation was requested, and is pending at this time. On 04/29/2019 patient seen in follow-up on medical surgical floor. He states he is feeling better, dyspnea continues to improve, still coughing, but not bringing up any sputum. Afebrile, he is on 2 L of oxygen with a pulse ox of 96%. No fever or chills, lung sounds reveal diminished breath sounds at the bases, no rhonchi, no wheezing, yesterday we added oral steroids, ID service is following, and patient is on a combination of Levaquin, Zosyn, and Zyvox. Sputum culture was sent, and Gram stain showed many gram-positive cocci, and rare gram-negative bacilli, fungal culture is pending, blood culture was negative. Today's labs have been reviewed, white blood cell count is 9.3, hemoglobin is 13.2, electrolytes within normal limits, B1 is 20, creatinine 0.73. Objective - Vital Signs Vital signs: Vital Signs Temp 98.0 F 04/29/19 05:15 Pulse 86 04/29/19 07:23 Resp 16 04/29/19 05:15 BP 115/68 04/29/19 05:15 Pulse Ox 96 04/29/19 06:57 Intake & Output 04/28/19 04/29/19 04/29/19 18:59 06:59 18:59 Other: Voiding Method Toilet # Voids 2 2 - Exam GENERAL EXAM: Alert, pleasant, 18-year-old white male, resting in bed, currently on 2 L of oxygen comfortable in no apparent distress. HEAD: Normocephalic/atraumatic. EYES: Normal reaction of pupils, equal size. Conjunctiva pink, sclera white. NOSE: Clear with pink turbinates. THROAT: No erythema or exudates. NECK: No masses, no JVD, no thyroid enlargement, no adenopathy. CHEST: No chest wall deformity. Symmetrical expansion. LUNGS: Equal air entry with diffuse rhonchi CVS: Regular rate and rhythm, normal S1 and S2, no gallops, no murmurs, no rubs ABDOMEN: Soft, nontender. No hepatosplenomegaly, normal bowel sounds, no guarding or rigidity. EXTREMITIES: No clubbing, no edema, no cyanosis, 2+ pulses and upper and lower extremities. MUSCULOSKELETAL: Muscle strength and tone normal. SPINE: No scoliosis or deformity SKIN: No rashes CENTRAL NERVOUS SYSTEM: Alert and oriented -3. No focal deficits, tone is normal in all 4 extremities. PSYCHIATRIC: Alert and oriented -3. Appropriate affect. Intact judgment and insight. - Labs CBC & Chem 7: 04/29/19 10:21 04/29/19 10:21 Labs: Abnormal Lab Results - Last 24 Hours (Table) 04/28/19 04/28/19 04/28/19 Range/Units 11:52 14:14 17:04 Plt Count (150-450) k/uL BUN (9-20) mg/dL Glucose (74-99) mg/dL POC Glucose (mg/dL) 379 H 453 H 415 H (75-99) mg/dL 04/28/19 04/29/19 04/29/19 Range/Units 20:18 02:02 06:57 Plt Count (150-450) k/uL BUN (9-20) mg/dL Glucose (74-99) mg/dL POC Glucose (mg/dL) 430 H 393 H 341 H (75-99) mg/dL 04/29/19 04/29/19 Range/Units 10:21 10:21 Plt Count 471 H (150-450) k/uL BUN 21 H (9-20) mg/dL Glucose 372 H (74-99) mg/dL POC Glucose (mg/dL) (75-99) mg/dL Microbiology - Last 24 Hours (Table) 04/28/19 08:43 Gram Stain - Preliminary Sputum 04/26/19 18:40 Blood Culture - Preliminary Blood No Growth after 48 hours Assessment and Plan Plan: Assessment: #1. Acute dyspnea related to acute tracheobronchitis, chest x-ray showed chronic extensive fibrotic changes, but no acute pulmonary process. #2. History of cystic fibrosis #3. Insulin-dependent diabetes mellitus #4. History of MRSA in the abdominal wall near previous site of the PEG tube insertion in 2017 #5. Chronic pancreatic insufficiency #6. Hyperglycemia, with no evidence of DKA Plan: Patient is improving, breathing easier, remains stable, from pulmonary perspective patient is stable for discharge home on prednisone taper, 30 mg 2 more days, 20 mg 3, and 10 mg 3, he can continue the Pulmozyme and hypertonic saline, and albuterol, antibiotics per ID service recommendations. It is important for the patient to get established with a local provider in addition to the CF clinic at the [facility] in [place]. He will need follow-up with Dr. Bhatia in the office in 7-10 days I performed a history & physical examination of the patient and discussed their management with my nurse practitioner, Carlita Guido. I reviewed the nurse practitioner's note and agree with the documented findings and plan of care. Lung sounds are positive for diffuse wheezes and rhonchi. The findings and the impression was discussed with the patient. I attest to the documentation by the nurse practitioner. Time with Patient: Less than 30
[2019-04-29] MEDS: HYPERTONIC SALINE 3% NEBULIZ 4 ML NEBU INHALATION SCH ×2 (11:33→19:19)
[2019-04-29 12:02] LABS: Glucose,Whole Blood 382 mg/dL (75-99)
[2019-04-29 17:39] LABS: Glucose,Whole Blood 518 mg/dL (75-99)
[2019-04-29] MEDS ORDERED: LIPASE 5,000/PROTEASE 17,000/AMYLASE 24,000 PO SCH (18:00)
[2019-04-29 20:45] LABS: Glucose,Whole Blood 399 mg/dL (75-99)
--- NOTE | 2019-04-29 22:53 | P.PN ---
Subjective Progress Note Date: 04/29/19 Principal diagnosis: This is a 18-year-old male with a past medical history of multiple complex medical problems who was admitted for shortness of breath, cystic fibrosis, and diabetes and is being followed closely. Pulmonary is following. Oral prednisone was added to the medications today per pulmonary. Patient is still having shortness of breath when coughing with some mucus and phlegm production today. Patient blood sugars continue to be uncontrolled and is being monitored closely. Patient denies any chest pain or palpitations at this time. Patient denies any nausea or vomiting and is tolerating diet. Patient states that at home he usually counts calories and controls his blood sugars this way. Patient is afebrile today. Guarded prognosis Active Medications Generic Name Dose Route Start Last Admin Trade Name Freq PRN Reason Stop Dose Admin Albuterol/Ipratropium 3 ml 04/27/19 00:00 04/28/19 11:48 Duoneb 0.5 Mg-3 Mg/3 Ml Soln INHALATION 3 ml RT-Q4H RANDA Administration Budesonide/Formoterol Fumarate 2 puff 04/28/19 20:00 Symbicort 160-4.5 Mcg Inhaler INHALATION RT-BID RANDA Dornase Davian 2.5 mg 04/27/19 08:00 04/28/19 08:17 Pulmozyme INHALATION 2.5 mg RT-DAILY RANDA Administration Ergocalciferol 50,000 unit 04/30/19 09:00 Vitamin D2 PO We@0900 RANDA Heparin Sodium (Porcine) 5,000 unit 04/27/19 21:00 04/28/19 09:02 Heparin SQ Not Given Q12HR RANDA Piperacillin Sod/Tazobactam 100 mls @ 25 mls/hr 04/27/19 16:00 04/28/19 15:55 Sod 3.375 gm/ Sodium Chloride IVPB 25 mls/hr Q8HR RANDA Administration Insulin Aspart 12 unit 04/28/19 15:46 Novolog SQ 04/28/19 15:47 ONCE ONE Insulin Aspart 0 unit 04/28/19 17:30 Novolog SQ ACHS [facility] Protocol Insulin Detemir 25 unit 04/28/19 21:00 Levemir SQ BID RANDA Levofloxacin 500 mg 04/27/19 09:00 04/28/19 09:02 Levaquin PO 05/04/19 09:01 500 mg DAILY RANDA Administration Linezolid 600 mg 04/27/19 11:00 04/28/19 09:38 Zyvox PO 600 mg Q12HR RANDA Administration Creon 25059 Unit 4 each 04/27/19 09:00 04/28/19 12:37 Capsules PO 4 each QID RANDA Administration Pantoprazole Sodium 40 mg 04/28/19 07:30 04/28/19 09:02 Protonix PO 40 mg [id number] RANDA Administration Prednisone 30 mg 04/28/19 11:00 04/28/19 12:57 PO 30 mg DAILY RANDA Administration Sodium Chloride 4 ml 04/27/19 12:00 04/28/19 11:48 Hypertonic Saline 3% Nebuliz INHALATION 4 ml RT-BID@1200,1900 RANDA Administration 04/29/2019 Patient is lying in bed resting but easily arousable. Patient appears to be in no acute distress. Patient states that he is breathing much better and still having an occasional cough with no phlegm production. Patient denies any chest pain or palpitations at this time. Patient is on room air. Patient denies any nausea or vomiting and has been tolerating diet. Patient states that he has been carb counting as he normally does at home and his blood sugars continue to be elevated. Will monitor closely and adjust medications accordingly. Spoke to the patient at length today about having a primary care provider and patient stated that he will be working on that. Patient has recently moved back here from out of state. Patient is afebrile. Guarded prognosis. Objective - Vital Signs Vital signs: Vital Signs Temp 98.4 F 04/29/19 20:45 Pulse 113 H 04/29/19 20:45 Resp 20 04/29/19 20:45 BP 107/60 04/29/19 20:45 Pulse Ox 93 L 04/29/19 20:45 Intake & Output 04/29/19 04/29/19 04/30/19 06:59 18:59 06:59 Intake Total 100 Balance 100 Intake: Intake, IV Titration 100 Amount Piperacillin-Tazobactam 3 100 .375 gm In Sodium Chloride 0.9% 100 ml @ 25 mls/hr IVPB Q8HR [facility] Rx# :[id number] Other: # Voids 2 1 - Exam Gen: This is a 18-year-old male in no acute distress. Vital signs are stable. Temp is 98.0F, pulse is 83, respirations are 16, blood pressure is 115/68, oxygen saturation is 92% on room air. HEENT: Head is atraumatic, normocephalic. Pupils equal, round. Sclerae is anicteric. NECK: Supple. No JVD. No lymphadenopathy. No thyromegaly. LUNGS: Lung sounds are diminished at the bases with a few diffuse rhonchi and crackles noted. No intercostal retractions. HEART: S1 and S2 are muffled. No murmur. ABDOMEN: Soft. Bowel sounds are present. No masses. No tenderness. EXTREMITIES: No pedal edema. No calf tenderness. NEUROLOGICAL: Patient is awake, alert and oriented x3. Cranial nerves 2 through 12 are grossly intact. No focal deficits - Labs CBC & Chem 7: 04/29/19 10:21 04/29/19 10:21 Labs: Abnormal Lab Results - Last 24 Hours (Table) 04/29/19 04/29/19 04/29/19 Range/Units 02:02 06:57 10:21 Plt Count 471 H (150-450) k/uL BUN (9-20) mg/dL Glucose (74-99) mg/dL POC Glucose (mg/dL) 393 H 341 H (75-99) mg/dL 04/29/19 04/29/19 04/29/19 Range/Units 10:21 12:00 17:38 Plt Count (150-450) k/uL BUN 21 H (9-20) mg/dL Glucose 372 H (74-99) mg/dL POC Glucose (mg/dL) 382 H 518 H (75-99) mg/dL 04/29/19 Range/Units 20:44 Plt Count (150-450) k/uL BUN (9-20) mg/dL Glucose (74-99) mg/dL POC Glucose (mg/dL) 399 H (75-99) mg/dL Microbiology - Last 24 Hours (Table) 04/26/19 18:40 Blood Culture - Preliminary Blood No Growth after 72 hours 04/28/19 08:43 Gram Stain - Preliminary Sputum Sputum Culture - Preliminary Presumptive Staph aureus Assessment and Plan Assessment: Cystic fibrosis, acute exacerbation, with acute bilateral pneumonia possibly gram-negative: Sputum cultures are showing presumptive staph aureus at this time. Diabetes mellitus type 1, uncontrolled with hyperglycemia with no evidence of ketosis: Patient is being monitored closely Hyponatremia, improved current Na+ is 137, potassium is 5.1 History of MRSA History of depression Recommendations and discussion Recommend to Continue current medications, management, and symptomatically treatment. Will continue IV antibiotic therapy. Infectious disease following as well as pulmonary. We'll continue bronchodilators and oral steroids. Will continue to monitor vital signs and labs closely. Will continue to monitor blood sugars closely and titrate as necessary. Guarded prognosis due to the complex multiple medical issues. Case management and social work are following due to no primary care provider. Further recommendations to follow. Possible discharge in 24-48 hours.
[2019-04-30] MEDS: PIPERACILLIN-TAZOBACTAM 3.375 GM in SODIUM CHLORIDE 0.9% 100 ML IVPB SCH ×2 (00:11→07:50)
--- NOTE | 2019-04-30 00:15 | P.PN ---
Subjective Progress Note Date: 04/29/19 1o-year-old male with cystic fibrosis presents to hospital with increasing shortness of breath. The patient had moved out of the area for some time and was receiving his care in [place] where he was residing. He is now back to [place] and is becoming more established. He has been seen by lmonology but does not yet have his primary care physician. He is doing relatively well but started to have increasing amounts of shortness of breath cough sputum production malaise and GI upset. His abdominal discomfort Ciardi resolved. He is able to eat his dinner without difficulties. He seems less short of breath he has less cough and sputum production since coming in the hospital. Fever has improved but is not nearly at baseline yet. 04/29/2019 patient does feel better but blood sugars remain very problematic in the staff is working to try to meet his high-protein needs and control his blood sugar. Objective - Vital Signs Vital signs: Vital Signs Temp 98.4 F 04/29/19 20:45 Pulse 100 04/29/19 23:24 Resp 20 04/29/19 20:45 BP 107/60 04/29/19 20:45 Pulse Ox 93 L 04/29/19 20:45 Intake & Output 04/29/19 04/29/19 04/30/19 06:59 18:59 06:59 Intake Total 100 Balance 100 Intake: Intake, IV Titration 100 Amount Piperacillin-Tazobactam 3 100 .375 gm In Sodium Chloride 0.9% 100 ml @ 25 mls/hr IVPB Q8HR [facility] Rx# :[id number] Other: # Voids 2 1 - Exam 18-year-old male thin build HEENT: Anicteric conjunctiva are pink and moist nasal mucosa grossly intact without significant lesions, there is no thrush. Neck: The neck is supple without significant lymphadenopathy or thyromegaly. Lungs: Symmetrical air entry is noted, expiratory wheezes are scattered few basilar crackles are heard bilaterally. Heart: Regular rate and rhythm with an audible S1-S2, no S3 no S4. There is no significant murmur click or rub, PMI was nondisplaced. Abdomen: Positive bowel sounds soft and nontender without palpable masses or organomegaly. There was no guarding or rebound. Extremities: The upper extremities have excellent pulses they are symmetric, no significant petechiae or telangiectasia. No splinter hemorrhages were noted. The lower extremities are free from significant edema. The peripheral pulses were 2+ and symmetric. Neuro: Awake alert oriented to person place and time. There are no acute new gross focal sensory motor deficits. - Labs CBC & Chem 7: 04/29/19 10:21 04/29/19 10:21 Labs: Abnormal Lab Results - Last 24 Hours (Table) 04/29/19 04/29/19 04/29/19 Range/Units 02:02 06:57 10:21 Plt Count 471 H (150-450) k/uL BUN (9-20) mg/dL Glucose (74-99) mg/dL POC Glucose (mg/dL) 393 H 341 H (75-99) mg/dL 04/29/19 04/29/19 04/29/19 Range/Units 10:21 12:00 17:38 Plt Count (150-450) k/uL BUN 21 H (9-20) mg/dL Glucose 372 H (74-99) mg/dL POC Glucose (mg/dL) 382 H 518 H (75-99) mg/dL 04/29/19 Range/Units 20:44 Plt Count (150-450) k/uL BUN (9-20) mg/dL Glucose (74-99) mg/dL POC Glucose (mg/dL) 399 H (75-99) mg/dL Microbiology - Last 24 Hours (Table) 04/26/19 18:40 Blood Culture - Preliminary Blood No Growth after 72 hours 04/28/19 08:43 Gram Stain - Preliminary Sputum Sputum Culture - Preliminary Presumptive Staph aureus Laboratory Results WBC 9.3 k/uL (4.0-11.0) 04/29/19 10:21 RBC 4.73 m/uL (4.30-5.90) 04/29/19 10:21 Hgb 13.2 gm/dL (13.0-17.5) 04/29/19 10:21 Hct 42.1 % (39.0-53.0) 04/29/19 10:21 MCV 88.9 fL (80.0-100.0) 04/29/19 10:21 MCH 27.9 pg (25.0-35.0) 04/29/19 10:21 MCHC 31.4 g/dL (31.0-37.0) 04/29/19 10:21 RDW 14.6 % (11.5-15.5) 04/29/19 10:21 Plt Count 471 k/uL (150-450) H 04/29/19 10:21 Neutrophils % 73 % 04/29/19 10:21 Lymphocytes % 21 % 04/29/19 10:21 Monocytes % 3 % 04/29/19 10:21 Eosinophils % 1 % 04/29/19 10:21 Basophils % 0 % 04/29/19 10:21 Neutrophils # 6.8 k/uL (1.3-7.7) 04/29/19 10:21 Lymphocytes # 2.0 k/uL (1.0-4.8) 04/29/19 10:21 Monocytes # 0.3 k/uL (0-1.0) 04/29/19 10:21 Eosinophils # 0.1 k/uL (0-0.7) 04/29/19 10:21 Basophils # 0.0 k/uL (0-0.2) 04/29/19 10:21 Hypochromasia Slight 04/26/19 18:40 PT 10.8 sec (9.0-12.0) 04/26/19 18:40 INR 1.0 (<1.2) 04/26/19 18:40 APTT 26.1 sec (22.0-30.0) 04/26/19 18:40 Sodium 137 mmol/L (137-145) 04/29/19 10:21 Potassium 5.1 mmol/L (3.5-5.1) 04/29/19 10:21 Chloride 100 mmol/L (98-107) 04/29/19 10:21 Carbon Dioxide 23 mmol/L (22-30) 04/29/19 10:21 Anion Gap 14 mmol/L 04/29/19 10:21 BUN 21 mg/dL (9-20) H 04/29/19 10:21 Creatinine 0.73 mg/dL (0.66-1.25) 04/29/19 10:21 Est GFR (CKD-EPI)AfAm >90 (>60 ml/min/1.73 sqM) 04/29/19 10:21 Est GFR (CKD-EPI)NonAf >90 (>60 ml/min/1.73 sqM) 04/29/19 10:21 Glucose 372 mg/dL (74-99) H 04/29/19 10:21 POC Glucose (mg/dL) 399 mg/dL (75-99) H 04/29/19 20:44 POC Glu [employer] ID Rachel Sow 04/29/19 20:44 Calcium 9.8 mg/dL (8.4-10.2) 04/29/19 10:21 Magnesium 1.8 mg/dL (1.6-2.3) 04/26/19 18:40 Total Bilirubin 0.2 mg/dL (0.2-1.3) 04/26/19 18:40 AST 21 U/L (17-59) 04/26/19 18:40 ALT 13 U/L (21-72) L 04/26/19 18:40 Alkaline Phosphatase 87 U/L (38-126) 04/26/19 18:40 Creatine Kinase 41 U/L (55-170) L 04/26/19 18:40 Troponin I <0.012 ng/mL (0.000-0.034) 04/26/19 18:40 NT-Pro-B Natriuret Pep <11 pg/mL 04/26/19 18:40 Total Protein 6.6 g/dL (6.3-8.2) 04/26/19 18:40 Albumin 3.5 g/dL (3.5-5.0) 04/26/19 18:40 Acetone, Qual Negative (Negative) 04/26/19 18:40 Microbiology 04/26/19 18:40 Blood Blood Culture - Preliminary No Growth after 72 hours 04/28/19 08:43 Sputum Gram Stain - Preliminary 04/28/19 08:43 Sputum Sputum Culture - Preliminary Presumptive Staph aureus Assessment and Plan (1) Cystic fibrosis exacerbation Current Visit: Yes Status: Acute Code(s): E84.9 - CYSTIC FIBROSIS, UNSPECIFIED SNOMED Code(s): 353858506 (2) MRSA (methicillin resistant staph aureus) culture positive Narrative/Plan: 18-year-old male presents to Hospital with significant worsening of the shortness of breath. As noted he has not yet set up care with a primary care physician but was seen during his last stay by pulmonary critical care. At this time. Receiving the multiple breathing treatments, antibiotic therapy is utilize with Zyvox 600 mg IV piggyback every 12 hours until we have further data. He does appear to have colonization with MRSA. Potentially Xanax be transitioned to oral when he is improved to complete the course of treatment. He will need to set up outpatient follow-up with the primary care physician to hopefully improve his continuity of care and prevent further hospitalizations. High-protein diet is being interested in these resolve any nausea or emesis. Working with the team to improve his glucose control. 04/29/2019 patient is feeling somewhat better. Pain is improved shortness of breath is improved but not resolved. Tolerating the side effects without difficulty. Working with the nursing staff to improve his glucose control. Zyvox is sent to the pharmacy at the hospital to determine if this is an option for him when he leaves the facility for his MRSA pneumonia complicated by his Cystic fibrosis Current Visit: No Status: Acute Code(s): Z22.322 - CARRIER OR SUSPECTED CARRIER OF METHICILLIN RESIS STAPH SNOMED Code(s): 546221800 (3) Diabetes mellitus type 2, uncontrolled Current Visit: Yes Status: Acute Code(s): E11.65 - TYPE 2 DIABETES MELLITUS WITH HYPERGLYCEMIA SNOMED Code(s): 803971201
[2019-04-30 01:57] LABS: Glucose,Whole Blood 216 mg/dL (75-99)
[2019-04-30 06:13] VITALS: RESP 18
[2019-04-30 06:55] LABS: Glucose,Whole Blood 276 mg/dL (75-99)
[2019-04-30] MEDS: IPRATROPIUM-ALBUTEROL 3 ML NEB INHALATION SCH ×2 (07:15→11:22)
[2019-04-30] MEDS: SYMBICORT 160-4.5 MCG INHALER INHALATION SCH (07:15)
[2019-04-30] MEDS: DORNASE ALFA 1 MG/ML 2.5 ML AMP INHALATION SCH (07:27)
[2019-04-30] MEDS: HEPARIN SODIUM,PORCINE 5,000 UNIT/ML 1 ML VIAL SQ SCH (07:38)
[2019-04-30] MEDS: LEVOFLOXACIN 500 MG TAB PO SCH (07:50)
[2019-04-30] MEDS: LINEZOLID 600 MG TAB PO SCH (07:50)
[2019-04-30] MEDS: PANTOPRAZOLE 40 MG TABLET PO SCH (07:50)
[2019-04-30] MEDS: INSULIN ASPART (NovoLOG) 100 UNIT/ML VIAL SQ SCH ×4 (07:51→12:52)
[2019-04-30] MEDS: INSULIN DETEMIR (LEVEMIR) 100 UNIT/ML SYR SQ SCH (07:51)
[2019-04-30] MEDS: CREON 24000 UNIT PO SCH ×2 (07:52→12:56)
[2019-04-30 08:34] LABS: African American GFR (CKD) >90 (>60 ml/min/1.73 sqM); Anion Gap 11 mmol/L; Blood Urea Nitrogen 29 mg/dL (9-20); Calcium 9.2 mg/dL (8.4-10.2); Carbon Dioxide 25 mmol/L (22-30); Chloride 102 mmol/L (98-107); Glucose 333 mg/dL (74-99); Potassium 4.9 mmol/L (3.5-5.1); Sodium 138 mmol/L (137-145)
[2019-04-30 08:36] LABS: Basophils # (A) 0.1 k/uL (0-0.2); Basophils % (A) 1 %; Eosinophils # (A) 0.1 k/uL (0-0.7); Eosinophils % (A) 1 %; HCT 39.6 % (39.0-53.0); HGB 12.6 gm/dL (13.0-17.5); Lymphocytes # (A) 3.8 k/uL (1.0-4.8); Lymphocytes % (A) 41 %; MCH 28.3 pg (25.0-35.0); MCHC 31.8 g/dL (31.0-37.0); MCV 89.2 fL (80.0-100.0); Mean Platelet Volume 7.4; Monocytes # (A) 0.3 k/uL (0-1.0); Monocytes % (A) 3 %; Neutrophils # (A) 4.9 k/uL (1.3-7.7); Neutrophils % (A) 52 %; Platelet Count 465 k/uL (150-450); RBC 4.44 m/uL (4.30-5.90); RDW 15.1 % (11.5-15.5); WBC 9.3 k/uL (4.0-11.0)
[2019-04-30] MEDS ORDERED: predniSONE 20 MG TAB PO SCH (09:00)
[2019-04-30] MEDS ORDERED: ERGOCALCIFEROL 50,000 UNIT CAP PO SCH (09:00)
[2019-04-30] MEDS: HYPERTONIC SALINE 3% NEBULIZ 4 ML NEBU INHALATION SCH (11:22)
--- NOTE | 2019-04-30 11:47 | P.PN ---
Subjective Progress Note Date: 04/30/19 Principal diagnosis: Acute tracheobronchitis complicated by MRSA This is a 18-year-old white male with history of cystic fibrosis, diabetes mellitus, depression, previous history of MRSA infection, who presented to the emergency department on 04/26/2019 with complaints of one week's worth of worsening shortness of breath, cough, congestion, production of green phlegm, and fever and chills earlier in the week. Also complained of some abdominal aches, but no nausea, no vomiting or diarrhea. He states he has been compliant with all his medications, pancreatic enzymes, nebulized bronchodilators. Just recently obtained health care coverage again, and is planning on getting established at the cystic fibrosis clinic at the [facility]. Does not have a primary care doctor in the area. We have previously seen this gentleman in consultation for pulmonary infections, and episodes of DKA. Patient is on nebulized hypertonic saline, Pulmozyme, at home, and he has a CPT vest that he regularly uses. He states he has been out of his Pulmozyme. Chest x-ray was completed showing extensive interstitial lung disease stable from previous chest x-ray and consistent with history of cystic fibrosis, no new pulmonary density. Patient has been admitted to the hospital for inpatient treatment, has been started on Levaquin, nebulized bronchodilators, Pulmozyme and nebulized hypertonic salin, was given IV fluids. Lab work showed white blood cell count of 7.6, hemoglobin of 13.7, platelet count of 433, renal profile was within normal limits, sodium was 135, potassium is 4.4, chloride is 97, BUN is 6 and creatinine 0.54, glucose was 626, troponin was negative 1, proBNP was less than 11, serum acetone negative. On 04/28/2019 patient seen in follow-up on medical surgical floor. He states his dyspnea has improved, lung sounds are diminished, and bronchospastic on forced exhale maneuver, occasional cough with production of green colored sputum. Culture showed no growth at the 24-hour kaushal, sputum culture has been sent, pending at this time, no fever or chills, today's labs have been reviewed, CBC is within normal limits, BMP was unremarkable. No complaints of chest pain. Empiric antibiotics in the form of Levaquin, yesterday we added Zyvox and Zosyn has been added, ID service consultation was requested, and is pending at this time. On 04/29/2019 patient seen in follow-up on medical surgical floor. He states he is feeling better, dyspnea continues to improve, still coughing, but not bringing up any sputum. Afebrile, he is on 2 L of oxygen with a pulse ox of 96%. No fever or chills, lung sounds reveal diminished breath sounds at the bases, no rhonchi, no wheezing, yesterday we added oral steroids, ID service is following, and patient is on a combination of Levaquin, Zosyn, and Zyvox. Sputum culture was sent, and Gram stain showed many gram-positive cocci, and rare gram-negative bacilli, fungal culture is pending, blood culture was negative. Today's labs have been reviewed, white blood cell count is 9.3, hemoglobin is 13.2, electrolytes within normal limits, B1 is 20, creatinine 0.73. The patient is seen today 04/30/2019 in follow-up on the regular medical floor. He is currently awake and alert in no acute distress. His breathing is back to his baseline. Sputum is positive for MRSA. He is currently on Zyvox. He is also on Zosyn and Levaquin. Infectious diseases on the case. He is maintaining good O2 saturations in the 90s on room air. He is afebrile. Hemodynamically stable. White count 9.3. Hemoglobin 12.6. Creatinine 0.73. He remains on Symbicort, DuoNeb's, Pulmozyme and Creon. Objective - Vital Signs Vital signs: Vital Signs Temp 97.8 F 04/30/19 06:05 Pulse 100 04/30/19 11:22 Resp 18 04/30/19 06:05 BP 108/69 04/30/19 06:05 Pulse Ox 94 L 04/30/19 06:05 Intake & Output 04/29/19 04/30/19 04/30/19 18:59 06:59 18:59 Intake Total 100 Balance 100 Weight 52.798 kg Intake: Intake, IV Titration 100 Amount Piperacillin-Tazobactam 3 100 .375 gm In Sodium Chloride 0.9% 100 ml @ 25 mls/hr IVPB Q8HR [facility] Rx# :[id number] Other: # Voids 1 - Exam GENERAL EXAM: Alert, active, 18-year-old patient, comfortable in no apparent distress. On room air. HEAD: Normocephalic. EYES: Normal reaction of pupils, equal size. NOSE: Clear with pink turbinates. THROAT: No erythema or exudates. NECK: No masses, no JVD. CHEST: No chest wall deformity. LUNGS: Equal air entry with no crackles, wheeze, rhonchi or dullness. CVS: S1 and S2 normal with no audible murmur, regular rhythm. ABDOMEN: No hepatosplenomegaly, normal bowel sounds, no guarding or rigidity. SPINE: No scoliosis or deformity SKIN: No rashes CENTRAL NERVOUS SYSTEM: No focal deficits, tone is normal in all 4 extremities. EXTREMITIES: There is no peripheral edema. No clubbing, no cyanosis. Peripheral pulses are intact. - Labs CBC & Chem 7: 04/30/19 07:39 04/30/19 07:39 Labs: Abnormal Lab Results - Last 24 Hours (Table) 04/29/19 04/29/19 04/29/19 Range/Units 12:00 17:38 20:44 Hgb (13.0-17.5) gm/dL Plt Count (150-450) k/uL BUN (9-20) mg/dL Glucose (74-99) mg/dL POC Glucose (mg/dL) 382 H 518 H 399 H (75-99) mg/dL 04/30/19 04/30/19 04/30/19 Range/Units 01:56 06:51 07:39 Hgb 12.6 L (13.0-17.5) gm/dL Plt Count 465 H (150-450) k/uL BUN (9-20) mg/dL Glucose (74-99) mg/dL POC Glucose (mg/dL) 216 H 276 H (75-99) mg/dL 04/30/19 Range/Units 07:39 Hgb (13.0-17.5) gm/dL Plt Count (150-450) k/uL BUN 29 H (9-20) mg/dL Glucose 333 H (74-99) mg/dL POC Glucose (mg/dL) (75-99) mg/dL Microbiology - Last 24 Hours (Table) 04/28/19 08:43 Gram Stain - Final Sputum Sputum Culture - Final Methicillin resist S. aureus 04/26/19 18:40 Blood Culture - Preliminary Blood No Growth after 72 hours Assessment and Plan Assessment: Assessment: #1. Acute dyspnea related to acute tracheobronchitis complicated by MRSA, chest x-ray showed chronic extensive fibrotic changes, but no acute pulmonary process. #2. History of cystic fibrosis #3. Insulin-dependent diabetes mellitus #4. History of MRSA in the abdominal wall near previous site of the PEG tube insertion in 2017 #5. Chronic pancreatic insufficiency #6. Hyperglycemia, with no evidence of DKA Plan: The patient was seen and evaluated by Dr. Shahid. He is currently stable from the pulmonary standpoint. He could be discharged home today on antibiotics per ID. He is currently on Zyvox along with Zosyn and Levaquin. of note, the patient states he will not have anymore PICC line displaced is he has had 2 many in the bilateral upper extremities. He also states he will not have another Mediport placed as he had it for less than one month and it got infected. Continue his home medications. Follow up with Dr. Brown in our office in 1 week. I, the cosigning physician, performed a history & physical examination of the patient. Lungs sounds are clear. Maintaining good O2 saturations in the 90s on room air. I discussed the assessment and plan of care with my nurse pr actitioner, Evette Adkins. I attest to the above note as dictated by her.
[2019-04-30 12:44] LABS: Glucose,Whole Blood 309 mg/dL (75-99)
[2019-04-30 13:30] VITALS: BP 121/74; PULSE 90; TEMP 98.2
--- NOTE | 2019-04-30 16:43 | P.DS ---
Providers Date of admission: 04/26/19 20:50 Expected date of discharge: 04/30/19 Attending physician: Marta Santos MD Consults: 04/26/19 20:50 Consult Physician Routine Consulting Provider: Fadia Brown Consult Reason/Comments: Cystic fibrosis, asthmatic bronchitis Do you want consulting provider notified?: Yes 04/27/19 08:15 Consult Physician Routine Consulting Provider: Dinesh Peters Consult Reason/Comments: cf mrsa previously allergic to vanco Do you want consulting provider notified?: Yes Primary care physician: Stated None Hospital Course: Final diagnosis Cystic fibrosis, acute exacerbation, with acute bilateral pneumonia possibly gram-negative: Sputum cultures show MRSA Diabetes mellitus type 2, uncontrolled with hyperglycemia with no evidence of ketosis Hyponatremia History of MRSA and history of depression Discharge disposition Patient is being discharged in a stable condition guarded prognosis to home. Patient has recently moved up here and is staying with family at this time. Referral for primary care provider was given. patient will go home on oral Zyvox per infectious disease recommendations. Pulmonary recommends prednisone taper. Patient is to follow-up with pulmonary clinic this week. History of present illness This is a 18-year-old male who was recently admitted for acute exacerbation of cystic fibrosis with acute bilateral pneumonia and was found to have sputum cultures showing MRSA. Infectious disease was following. Patient was on IV antibiotics as well as oral antibiotics. She will continue a course of oral Zyvox per infectious disease recommendations. Patient is to follow-up in the pulmonary clinic this week. Patient is currently working on trying to get into the [facility] clinic for cystic fibrosis patients. Patient denies any chest pain, shortness of breath, or palpitations at this time. Patient does have a mild cough but states that it has improved. She remains afebrile. Patient denies any nausea or vomiting at this time. Patient has been attempting to collect carbs as he normally does at home but has been difficult while in the hospital. Patient will continue on Levemir twice daily as well as NovoLog 3 times daily. Patient does not currently have a primary care provider in the area here and one was provided prior to discharge. Patient's condition is currently stable with much improvement. Guarded prognosis. On exam vital signs are stable. Blood pressure is 121/74, pulse is 90, respirations are 18, temp is 98.2F, oxygen saturation is 93% on room air. Cardio S1 and S2 are normal. Respiratory system shows diminished breath sounds in the bases with a few scattered crackles noted. Abdomen is soft and nontender. Nervous system shows no focal deficits and gait is steady. Please refer to medication reconciliation sheet for a list of medications. Patient Condition at Discharge: Fair Plan - Discharge Summary New Discharge Prescriptions: New Linezolid 600 mg PO BID #20 tablet predniSONE 10 mg PO DIRECTED #30 tab Budesonide-Formot 160-4.5 Mcg [Symbicort 160-4.5 Mcg Inhaler] 2 puff INHALA TION RT-BID 30 Days #1 puff Continue Lipase/Protease/Amylase [Creon Dr 24,000 Units Capsule] 96,000 units PO QID Ergocalciferol [Vitamin D2 (DRISDOL)] 50,000 unit PO WE INSULIN LISPRO (HumaLOG) [humaLOG] See Protocol SQ AC-TID Hypertonic Saline 3% Nebuliz 4 ml INHALATION RT-BID@1200,1900 Albuterol Nebulized [Ventolin Nebulized] 2.5 mg INHALATION RT-Q4H PRN PRN Reason: Shortness Of Breath Pulmozyme 1 vial INHALATION RT-DAILY #0 Changed Insulin Glargine [Lantus] 30 units SQ BID #0 Discharge Medication List Lipase/Protease/Amylase [Creon Dr 24,000 Units Capsule] 96,000 units PO QID 06/15/15 [History] Ergocalciferol [Vitamin D2 (DRISDOL)] 50,000 unit PO WE 02/17/19 [History] Hypertonic Saline 3% Nebuliz 4 ml INHALATION RT-BID@1200,1900 02/17/19 [History] INSULIN LISPRO (HumaLOG) [humaLOG] See Protocol SQ AC-TID 02/17/19 [History] Albuterol Nebulized [Ventolin Nebulized] 2.5 mg INHALATION RT-Q4H PRN 04/26/19 [History] Linezolid 600 mg PO BID #20 tablet 04/29/19 [Rx] Budesonide-Formot 160-4.5 Mcg [Symbicort 160-4.5 Mcg Inhaler] 2 puff INHALATION RT-BID 30 Days #1 puff 04/30/19 [Rx] Insulin Glargine [Lantus] 30 units SQ BID #0 04/30/19 [Rx] Pulmozyme 1 vial INHALATION RT-DAILY #0 04/30/19 [Rx] predniSONE 10 mg PO DIRECTED #30 tab 04/30/19 [Rx] Follow up Appointment(s)/Referral(s): Fadia Brown MD [STAFF PHYSICIAN] - 05/16/19 1:15 pm Kate Palafox MD [REFERRING] - 3 Days (must call office to set appoinment) Patient Instructions/Handouts: Cystic Fibrosis (DC) Activity/Diet/Wound Care/Special Instructions: Activity Limited until follow-up Follow-up with Dr. Brown in the office in one week Follow-up with PCP Follow-up with CF clinic at [facility] Continue taking medications until complete Continue to carb count and keep track of blood sugars closely. Keep a log of blood sugars for PCP follow-up Discharge Disposition: HOME SELF-CARE
== END 2019-04-30 14:45 | disposition home or self-care (01) | DRG 177 ==
LOC: EC 18:05 → 4MS4W 20:50
PROVIDERS: ADMIT Internal Medicine; ATTEND Internal Medicine
DX: J15.212 Pneumonia due to Methicillin resistant Staphylococcus aureus (principal); J80 Acute respiratory distress syndrome; E84.9 Cystic fibrosis, unspecified; E87.1 Hypo-osmolality and hyponatremia; J84.9 Interstitial pulmonary disease, unspecified; E10.65 Type 1 diabetes mellitus with hyperglycemia; Z79.4 Long term (current) use of insulin; E86.0 Dehydration; J20.9 Acute bronchitis, unspecified; J45.909 Unspecified asthma, uncomplicated; K86.89 Other specified diseases of pancreas; Z79.51 Long term (current) use of inhaled steroids; Z86.14 Personal history of Methicillin resistant Staphylococcus aureus infection; Z88.1 Allergy status to other antibiotic agents; Z88.2 Allergy status to sulfonamides; Z79.899 Other long term (current) drug therapy; F32.9 Major depressive disorder, single episode, unspecified
CPT/HCPCS: 36415; 71046; 80048; 80053; 82009; 82550; 83735; 83880; 84484; 85025; 85610; 85730; 87040; 87070; 87077; 87186; 87205; 93005; 94640; 94760; 96361; 96365; 99291

== ENCOUNTER 2019-05-16 07:02 | Inpatient (IN) | payer OTHER ==
[2019-05-16] MEDS ORDERED: SODIUM CHLORIDE 0.9% 500 ML 500 ML IV STA (07:09)
[2019-05-16] MEDS ORDERED: IPRATROPIUM-ALBUTEROL 3 ML NEB INHALATION STA (07:14)
[2019-05-16] MEDS ORDERED: methylPREDNISolone SOD SUCCI 125 MG/2 ML VIAL IV STA (07:14)
[2019-05-16] MEDS ORDERED: AZITHROMYCIN 500 MG in SODIUM CHLORIDE 0.9% 250 ML IVPB STA (07:16)
[2019-05-16] MEDS ORDERED: LEVOFLOXACIN 750MG-D5W PMX 750 MG in DEXTROSE/WATER 1 150ML.BAG IVPB STA (07:17)
[2019-05-16] MEDS ORDERED: PIPERACILLIN-TAZOBACTAM 3.375 GM in SODIUM CHLORIDE 0.9% 100 ML IVPB STA (07:31)
[2019-05-16] MEDS ORDERED: HYPERTONIC SALINE 3% NEBULIZ 4 ML NEBU INHALATION STA (07:32)
--- NOTE | 2019-05-16 07:33 | ED ---
SOB HPI - General Chief Complaint: Shortness of Breath Stated Complaint: Fever,Diff Breathing Time Seen by Provider: 05/16/19 07:09 Source: patient Mode of arrival: ambulatory Limitations: no limitations - History of Present Illness Initial Comments: 19-year-old male with history of cystic fibrosis, diabetes, peg tube for feedings presenting today for chief complaint of shortness of breath x 1 day. Patient states he feels like he is having a cystic fibrosis exacerbation. He states that he also has had a fever for the past 2 days he states yesterday was 102 Fahrenheit today when he woke up it is 101.3. She denies any antibiotic use currently. Patient states that he also has increasing shortness of breath he denies chest pain. She states she has tried hypertonic saline at home and has worn his physio chest. She states she does not have an established print controller in [place] he recently moved from [place]. Patient states he attempted to make an appointment at [facility] which he is awaiting approval as his records are being transferred from [facility]. Patient states he does have his digestive enzymes as well as hypertonic saline for treatment of CF. remaining review of systems negative, patient denies hemoptysis, increased cough, vomiting, diarrhea, leg swelling. Upon arrival patient is retracting, appears short of breath and hypoxic. He is able to speak complete sentences. - Related Data Home Medications Medication Instructions Recorded Confirmed Lipase/Protease/Amylase [Creon Dr 96,000 units PO QID 06/15/15 05/16/19 24,000 Units Capsule] Ergocalciferol [Vitamin D2 50,000 unit PO WE 02/17/19 05/16/19 (DRISDOL)] Hypertonic Saline 3% Nebuliz 4 ml INHALATION RT-BID@1200,1900 02/17/19 05/16/19 INSULIN LISPRO (HumaLOG) [humaLOG] See Protocol SQ AC-TID 02/17/19 05/16/19 Albuterol Nebulized [Ventolin 2.5 mg INHALATION RT-Q4H PRN 04/26/19 05/16/19 Nebulized] Insulin Glargine [Lantus] 50 units SQ HS 05/16/19 05/16/19 Previous Rx's Medication Instructions Recorded Linezolid 600 mg PO BID #20 tablet 04/29/19 Budesonide-Formot 160-4.5 Mcg 2 puff INHALATION RT-BID 30 Days 04/30/19 [Symbicort 160-4.5 Mcg Inhaler] #1 puff Pulmozyme 1 vial INHALATION RT-DAILY #0 04/30/19 Allergies Allergy/AdvReac Type Severity Reaction Status Date / Time sulfamethoxazole Allergy Unknown Verified 05/16/19 09:05 [From Bactrim] trimethoprim [From Bactrim] Allergy Unknown Verified 05/16/19 09:05 vancomycin Allergy Rash/Hives Verified 05/16/19 09:05 Review of Systems ROS Statement: Those systems with pertinent positive or pertinent negative responses have been documented in the HPI. ROS Other: All systems not noted in ROS Statement are negative. Past Medical History Past Medical History: Diabetes Mellitus Additional Past Medical History / Comment(s): Cystic Fibrosis History of Any Multi-Drug Resistant Organisms: MRSA Date of last positivie culture/infection: 04/28/19 MDRO Source:: sputum Past Surgical History: No Surgical Hx Reported Additional Past Surgical History / Comment(s): feeding tube, port (removed) Past Anesthesia/Blood Transfusion Reactions: No Reported Reaction Past Psychological History: Depression Smoking Status: Never smoker Past Alcohol Use History: Rare Past Drug Use History: None Reported - Past Family History Father History Unknown: Yes Additional Family Medical History / Comment(s): States that he was adopted, but says that he thinks there isnt any family history on either side. Mother Family Medical History: No Reported History Additional Family Medical History / Comment(s): Pt is adopted but has had contact with natural mother and she is healthy. General Exam - General Exam Comments Initial Comments: General: The patient is awake and alert, pleasant Eye: Pupils are equal, round and reactive to light, extra-ocular movements are intact. No nystagmus. There is normal conjunctiva bilaterally. No signs of icterus. Ears, nose, mouth and throat: There are moist mucous membranes and no oral lesions. Neck: The neck is supple, there is no tenderness or JVD. Cardiovascular: There is a regular rate and rhythm. No murmur, rub or gallop is appreciated. Respiratory: respirations are labored with suprasternal retractions subcostal retractions, minimal abdominal breathing. Patient does have diminished air movement as well as expiratory wheeze. No stridor noted. She does have significant rhonchi no obvious rales. Gastrointestinal: Soft, non-distended, non-tender abdomen without masses or organomegaly noted. There is no rebound or guarding present. Musculoskeletal: Normal ROM, no tenderness. Strength 5/5. Sensation intact. Pu lses equal bilaterally 2+. Neurological: A&O x 3. CN II-XII intact grossly, There are no obvious motor or sensory deficits. Coordination appears grossly intact. Speech is normal, able to speak complete sentences. Skin: Skin is warm and dry and no rashes or lesions are noted. Psychiatric: Cooperative, appropriate mood & affect, normal judgment. Limitations: no limitations Course Vital Signs 05/16/19 05/16/19 05/16/19 07:05 07:15 07:20 Temperature 98.2 F Pulse Rate 124 H 125 H Respiratory 28 H Rate Blood Pressure 112/77 120/83 120/83 O2 Sat by Pulse 90 L Oximetry 05/16/19 05/16/19 05/16/19 07:30 07:40 07:57 Temperature Pulse Rate 123 H 125 H Respiratory 30 H Rate Blood Pressure 120/83 120/83 O2 Sat by Pulse 92 L Oximetry 05/16/19 05/16/19 05/16/19 08:04 08:12 08:16 Temperature Pulse Rate 120 H 122 H 123 H Respiratory Rate Blood Pressure O2 Sat by Pulse Oximetry 05/16/19 05/16/19 05/16/19 08:19 08:20 08:24 Temperature Pulse Rate 123 H 121 H 124 H Respiratory 38 H 42 H Rate Blood Pressure 126/89 O2 Sat by Pulse 94 L 100 Oximetry 05/16/19 05/16/19 05/16/19 08:30 08:40 08:41 Temperature Pulse Rate 128 H 130 H 128 H Respiratory 41 H 40 H Rate Blood Pressure 126/89 126/89 O2 Sat by Pulse 99 95 Oximetry 05/16/19 05/16/19 05/16/19 08:50 08:51 09:00 Temperature Pulse Rate 128 H 129 H 141 H Respiratory 42 H 38 H Rate Blood Pressure 126/89 126/89 O2 Sat by Pulse 100 96 Oximetry 05/16/19 05/16/19 05/16/19 09:10 09:20 09:30 Temperature Pulse Rate 140 H 134 H 135 H Respiratory 21 23 24 Rate Blood Pressure 126/89 126/89 126/89 O2 Sat by Pulse 94 L 92 L 93 L Oximetry 05/16/19 05/16/19 05/16/19 09:39 09:40 09:50 Temperature 100 F H Pulse Rate 137 H 131 H Respiratory 37 H 25 H Rate Blood Pressure 126/89 126/89 O2 Sat by Pulse 92 L 92 L Oximetry 05/16/19 05/16/19 05/16/19 10:00 10:10 10:20 Temperature Pulse Rate 128 H 130 H 122 H Respiratory 23 18 28 H Rate Blood Pressure 126/89 126/89 O2 Sat by Pulse 92 L 91 L 92 L Oximetry 05/16/19 05/16/19 05/16/19 10:30 10:40 10:50 Temperature Pulse Rate 120 H 117 H 117 H Respiratory 15 22 16 Rate Blood Pressure 126/89 126/89 O2 Sat by Pulse 93 L 93 L 94 L Oximetry 05/16/19 05/16/19 05/16/19 11:00 11:10 11:20 Temperature Pulse Rate 116 H 112 H Respiratory 27 H 23 Rate Blood Pressure 126/89 126/89 126/89 O2 Sat by Pulse 93 L 95 Oximetry 05/16/19 05/16/19 05/16/19 11:30 11:40 11:50 Temperature Pulse Rate 103 H 112 H 114 H Respiratory 18 18 29 H Rate Blood Pressure 126/89 126/89 126/89 O2 Sat by Pulse 95 94 L 94 L Oximetry 05/16/19 05/16/19 12:00 12:10 Temperature Pulse Rate 108 H 112 H Respiratory 30 H 41 H Rate Blood Pressure 126/89 126/89 O2 Sat by Pulse 96 95 Oximetry - Reevaluation(s) Reevaluation #1: Although patient admitted to medicine, patient reevaluated, HR now 99, BP stable on monitor-appearing well, no longer retracting. 05/16/19 12:29 Medical Decision Making - Medical Decision Making 19-year-old male presenting for shortness of breath. Patient states she has also had a fever history of cystic fibrosis. Patient states it feels like an exacerbation. Chest x-ray revealed mucous plugs. No overt signs of pneumonia however patient has been febrile at home for the past 24 hours, and has a temperature of 100F upon arrival in ER, warm to touch. Patient given 1 duoneb, 1 albuterol treatment in the ER. Patient deandra physio chest, which he used sta ting it helped symptoms. Patient on oxygen. Started on broad spectrum ABX. No evidence of DKA as cause of sensation of SOB. Anion Gap WNL. Patient given insulin for elevated blood glucose. Patient is on telemetry, denies chest pain. Patient at this time given sustain tachycardia, fever, SOB. Patient will be admitted for CF exacerbation with pulmonology on consult. Patient is agreeable with admission. Case discussed in detail with Dr. Singleton who reviewed labs, and patient case he is agreeable with admission. Speaking with accepting admitting provider. Brother to bring 7% hypertonic saline. - Lab Data Result diagrams: 05/16/19 08:00 05/16/19 08:00 Lab Results 05/16/19 05/16/19 05/16/19 Range/Units 08:00 08:00 08:00 WBC 5.1 (3.8-10.6) k/uL RBC 5.27 (4.30-5.90) m/uL Hgb 15.0 (13.0-17.5) gm/dL Hct 46.6 (39.0-53.0) % MCV 88.4 (80.0-100.0) fL MCH 28.6 (25.0-35.0) pg MCHC 32.3 (31.0-37.0) g/dL RDW 15.1 (11.5-15.5) % Plt Count 532 H (150-450) k/uL Neutrophils % (Manual) 34 % Band Neutrophils % 7 % Lymphocytes % (Manual) 48 % Monocytes % (Manual) 8 % Eosinophils % (Manual) 2 % Basophils % (Manual) 1 % Neutrophils # (Manual) 2.00 (1.3-7.7) k/uL Lymphocytes # (Manual) 2.45 (1.0-4.8) k/uL Monocytes # (Manual) 0.41 (0-1.0) k/uL Eosinophils # (Manual) 0.10 (0-0.7) k/uL Basophils # (Manual) 0.05 (0-0.2) k/uL Nucleated RBCs 0 (0-0) /100 WBC Manual Slide Review Performed PT 11.4 (9.0-12.0) sec INR 1.1 (<1.2) APTT 26.0 (22.0-30.0) sec Sodium 137 (137-145) mmol/L Potassium 4.8 (3.5-5.1) mmol/L Chloride 98 (98-107) mmol/L Carbon Dioxide 30 (22-30) mmol/L Anion Gap 9 mmol/L BUN 7 L (9-20) mg/dL Creatinine 0.55 L (0.66-1.25) mg/dL Est GFR (CKD-EPI)AfAm >90 (>60 ml/min/1.73 sqM) Est GFR (CKD-EPI)NonAf >90 (>60 ml/min/1.73 sqM) Glucose 438 H (74-99) mg/dL POC Glucose (mg/dL) (75-99) mg/dL POC Glu Laser Printing Operator ID Plasma Lactic Acid Cristian (0.7-2.0) mmol/L Calcium 9.2 (8.4-10.2) mg/dL Total Bilirubin 0.6 (0.2-1.3) mg/dL AST 25 (17-59) U/L ALT 26 (21-72) U/L Alkaline Phosphatase 111 (38-126) U/L Troponin I (0.000-0.034) ng/mL Total Protein 7.1 (6.3-8.2) g/dL Albumin 3.6 (3.5-5.0) g/dL Acetone, Qual Negative (Negative) 05/16/19 05/16/19 05/16/19 Range/Units 08:00 08:00 08:29 WBC (3.8-10.6) k/uL RBC (4.30-5.90) m/uL Hgb (13.0-17.5) gm/dL Hct (39.0-53.0) % MCV (80.0-100.0) fL MCH (25.0-35.0) pg MCHC (31.0-37.0) g/dL RDW (11.5-15.5) % Plt Count (150-450) k/uL Neutrophils % (Manual) % Band Neutrophils % % Lymphocytes % (Manual) % Monocytes % (Manual) % Eosinophils % (Manual) % Basophils % (Manual) % Neutrophils # (Manual) (1.3-7.7) k/uL Lymphocytes # (Manual) (1.0-4.8) k/uL Monocytes # (Manual) (0-1.0) k/uL Eosinophils # (Manual) (0-0.7) k/uL Basophils # (Manual) (0-0.2) k/uL Nucleated RBCs (0-0) /100 WBC Manual Slide Review PT (9.0-12.0) sec INR (<1.2) APTT (22.0-30.0) sec Sodium (137-145) mmol/L Potassium (3.5-5.1) mmol/L Chloride (98-107) mmol/L Carbon Dioxide (22-30) mmol/L Anion Gap mmol/L BUN (9-20) mg/dL Creatinine (0.66-1.25) mg/dL Est GFR (CKD-EPI)AfAm (>60 ml/min/1.73 sqM) Est GFR (CKD-EPI)NonAf (>60 ml/min/1.73 sqM) Glucose (74-99) mg/dL POC Glucose (mg/dL) 444 H (75-99) mg/dL POC Glu Laser Printing Operator ID Roxanna Ordoñez Plasma Lactic Acid Cristian 1.8 (0.7-2.0) mmol/L Calcium (8.4-10.2) mg/dL Total Bilirubin (0.2-1.3) mg/dL AST (17-59) U/L ALT (21-72) U/L Alkaline Phosphatase (38-126) U/L Troponin I <0.012 (0.000-0.034) ng/mL Total Protein (6.3-8.2) g/dL Albumin (3.5-5.0) g/dL Acetone, Qual (Negative) - EKG Data EKG Comments: Ventricular rate 97 bpm, SD interval 140 ms, QRS ratio 92 ms, QT/QTC 350/[address] elevation or depression nonspecific T-wave. Disposition Clinical Impression: Cystic fibrosis exacerbation, Shortness of breath, Fever, Pneumonia Disposition: ADMITTED IP TO THIS HOSP Condition: Stable Is patient prescribed a controlled substance at d/c from ED?: No Time of Disposition: 10:24
[2019-05-16] MEDS ORDERED: SODIUM CHLORIDE 0.9% 500 ML 500 ML IV ONE (07:47)
[2019-05-16 08:18] LABS: HCT 46.6 % (39.0-53.0); MCH 28.6 pg (25.0-35.0); MCHC 32.3 g/dL (31.0-37.0); MCV 88.4 fL (80.0-100.0); Mean Platelet Volume 6.8; Platelet Count 532 k/uL (150-450); RBC 5.27 m/uL (4.30-5.90); RDW 15.1 % (11.5-15.5); WBC 5.1 k/uL (3.8-10.6)
[2019-05-16 08:26] LABS: INR 1.1 (<1.2); Prothrombin Time 11.4 sec (9.0-12.0)
[2019-05-16 08:27] LABS: ALT 26 U/L (21-72); AST 25 U/L (17-59); African American GFR (CKD) >90 (>60 ml/min/1.73 sqM); Albumin 3.6 g/dL (3.5-5.0); Alkaline Phosphatase 111 U/L (38-126); Anion Gap 9 mmol/L; Blood Urea Nitrogen 7 mg/dL (9-20); Calcium 9.2 mg/dL (8.4-10.2); Carbon Dioxide 30 mmol/L (22-30); Chloride 98 mmol/L (98-107); Glucose 438 mg/dL (74-99); Sodium 137 mmol/L (137-145); Total Bilirubin 0.6 mg/dL (0.2-1.3); Total Protein 7.1 g/dL (6.3-8.2)
[2019-05-16 08:30] LABS: Glucose,Whole Blood 444 mg/dL (75-99)
[2019-05-16] MEDS ORDERED: ALBUTEROL NEBULIZED 2.5 MG/3 ML INHALATION STA (08:32)
[2019-05-16 08:35] LABS: Potassium 4.8 mmol/L (3.5-5.1)
--- NOTE | 2019-05-16 08:58 | XR ---
EXAMINATION TYPE: XR chest 1V portable DATE OF EXAM: 05/16/2019 COMPARISON: 04/26/2019 HISTORY: Shortness of breath and cystic fibrosis TECHNIQUE: Single frontal view of the chest is obtained. FINDINGS: There are post bronchiectasis is seen in the right upper lobe with increasing peribronchia l cuffing. As seen on the prior of 04/26/2019 there is right paratracheal consolidation with right min or fissure elevation. Increased interstitial lung markings are seen throughout, similar in degree to the prior exam. Cardia mediastinal silhouette is within normal limits. Osseous structures appear inta ct. IMPRESSION: Findings concerning for mucous plugging in the right upper lobe as there is volume loss and increasing right paratracheal consolidation. There is also increased peribronchial cuffing with s table varicose bronchiectasis. Pneumonia is a less likely consideration.
[2019-05-16] MEDS ORDERED: ACETAMINOPHEN TAB 325 MG TAB PO STA (09:00)
[2019-05-16 09:07] LABS: Band Neutrophils % 7 %; Basophils # (M) 0.05 k/uL (0-0.2); Lymphocytes # (M) 2.45 k/uL (1.0-4.8); Monocytes # (M) 0.41 k/uL (0-1.0); Neutrophils % (M) 34 %; Nucleated Red Blood Cells 0 /100 WBC (0-0); Total Cells Counted 100
[2019-05-16] MEDS ORDERED: ACETAMINOPHEN TAB 325 MG TAB PO PRN (10:09)
[2019-05-16] MEDS ORDERED: IBUPROFEN 400 MG TAB PO PRN (10:09)
[2019-05-16] MEDS ORDERED: NALOXONE 0.4 MG/ML 1 ML VIAL IV PRN (10:09)
[2019-05-16] MEDS ORDERED: INSULIN REGULAR 100 UNIT/ML VIAL SQ ONE (10:18)
[2019-05-16] MEDS: SODIUM CHLORIDE 0.9% 1,000 ML IV SCH (10:44)
[2019-05-16 10:45] LABS: Glucose,Whole Blood 343 mg/dL (75-99)
[2019-05-16 12:00] LABS: Glucose,Whole Blood 270 mg/dL (75-99)
[2019-05-16] MEDS ORDERED: IPRATROPIUM-ALBUTEROL 3 ML NEB INHALATION PRN (14:23)
[2019-05-16] MEDS ORDERED: LINEZOLID 600 MG TAB PO STA (14:25)
[2019-05-16] MEDS: IPRATROPIUM-ALBUTEROL 3 ML NEB INHALATION SCH ×2 (15:43→20:48)
--- NOTE | 2019-05-16 15:46 | P.HPIM ---
History of Present Illness H&P Date: 05/16/19 Chief Complaint: Shortness of breath 19-year-old male with PMH of cystic fibrosis and type 1 diabetes mellitus presents the ED for fever and shortness of breath. Patient reports feeling febrile to 102F yesterday when he was in [place]. Patient states that he made his way back to [place] around 2 AM. Patient reports waking up in the morning feeling extremely short of breath. Patient reports a cough that is new and productive of green sputum. He denies any sick contacts. Patient attempted to try hypertonic saline along with physio vest without much relief. Patient states that he has been attempting to connect with the corrections counselor and [facility] unsuccessfully since his move from [place]. Patient denies any headache, lower extremity edema, nausea or vomiting, chest pain, palpitations, changes in urination or bowel habits. No changes in appetite or weight. Patient denies any dizziness, numbness/weakness/tingling of the extremities. Patient reports having a feeding tube but is also able to the feet by mouth. In the ED, patient was tachycardic mostly in the 120s with T-max of 100F. Patient had a respiratory rate of 41. Patient was saturating 90% on room air. CBC showed elevated platelet count of 532. Coagulation panel was negative. CMP was negative except for glucose of 438. Troponin was less than 0.012. Acetone was negative. Chest x-ray showed concerns of mucous plugging in the right upper lobe with increasing right paratracheal consolidation. Patient was admitted for further workup and management. Review of Systems Pertinent positives and negatives as discussed in HPI, a complete review of systems was performed and all other systems are negative. Past Medical History Past Medical History: Diabetes Mellitus Additional Past Medical History / Comment(s): Cystic Fibrosis History of Any Multi-Drug Resistant Organisms: MRSA Date of last positivie culture/infection: 04/28/19 MDRO Source:: sputum Past Surgical History: No Surgical Hx Reported Additional Past Surgical History / Comment(s): feeding tube, port (removed) Past Anesthesia/Blood Transfusion Reactions: No Reported Reaction Past Psychological History: Depression Smoking Status: Never smoker Past Alcohol Use History: Rare Past Drug Use History: None Reported - Past Family History Father History Unknown: Yes Additional Family Medical History / Comment(s): States that he was adopted, but says that he thinks there isnt any family history on either side. Mother Family Medical History: No Reported History Additional Family Medical History / Comment(s): Pt is adopted but has had contact with natural mother and she is healthy. Medications and Allergies Home Medications Medication Instructions Recorded Confirmed Type Lipase/Protease/Amylase [Creon Dr 96,000 units PO QID 06/15/15 05/16/19 History 24,000 Units Capsule] Ergocalciferol [Vitamin D2 50,000 unit PO WE 02/17/19 05/16/19 History (DRISDOL)] Hypertonic Saline 3% Nebuliz 4 ml INHALATION RT-BID@1200,1900 02/17/19 05/16/19 History INSULIN LISPRO (HumaLOG) [humaLOG] See Protocol SQ AC-TID 02/17/19 05/16/19 Hi story Albuterol Nebulized [Ventolin 2.5 mg INHALATION RT-Q4H PRN 04/26/19 05/16/19 History Nebulized] Linezolid 600 mg PO BID #20 tablet 04/29/19 05/16/19 Rx Budesonide-Formot 160-4.5 Mcg 2 puff INHALATION RT-BID 30 Days 04/30/19 05/16/19 Rx [Symbicort 160-4.5 Mcg Inhaler] #1 puff Pulmozyme 1 vial INHALATION RT-DAILY #0 04/30/19 05/16/19 Rx Insulin Glargine [Lantus] 50 units SQ HS 05/16/19 05/16/19 History Allergies Allergy/AdvReac Type Severity Reaction Status Date / Time sulfamethoxazole Allergy Unknown Verified 05/16/19 09:05 [From Bactrim] trimethoprim [From Bactrim] Allergy Unknown Verified 05/16/19 09:05 vancomycin Allergy Rash/Hives Verified 05/16/19 09:05 Physical Exam Vitals: Vital Signs Temp Pulse Resp BP Pulse Ox 05/16/19 12:10 112 H 41 H 126/89 95 05/16/19 12:00 108 H 30 H 126/89 96 05/16/19 11:50 114 H 29 H 126/89 94 L 05/16/19 11:40 112 H 18 126/89 94 L 05/16/19 11:30 103 H 18 126/89 95 05/16/19 11:20 112 H 23 126/89 95 05/16/19 11:10 116 H 27 H 126/89 93 L 05/16/19 11:00 126/89 05/16/19 10:50 117 H 16 126/89 94 L 05/16/19 10:40 117 H 22 93 L 05/16/19 10:30 120 H 15 126/89 93 L 05/16/19 10:20 122 H 28 H 92 L 05/16/19 10:10 130 H 18 126/89 91 L 05/16/19 10:00 128 H 23 126/89 92 L 05/16/19 09:50 131 H 25 H 126/89 92 L 05/16/19 09:40 137 H 37 H 126/89 92 L 05/16/19 09:39 100 F H 05/16/19 09:30 135 H 24 126/89 93 L 05/16/19 09:20 134 H 23 126/89 92 L 05/16/19 09:10 140 H 21 126/89 94 L 05/16/19 09:00 141 H 38 H 126/89 96 05/16/19 08:51 129 H 05/16/19 08:50 128 H 42 H 126/89 100 05/16/19 08:41 128 H 05/16/19 08:40 130 H 40 H 126/89 95 05/16/19 08:30 128 H 41 H 126/89 99 05/16/19 08:24 124 H 05/16/19 08:20 121 H 42 H 126/89 100 05/16/19 08:19 123 H 38 H 94 L 05/16/19 08:16 123 H 05/16/19 08:12 122 H 05/16/19 08:04 120 H 05/16/19 07:57 30 H 05/16/19 07:40 125 H 120/83 92 L 05/16/19 07:30 123 H 120/83 05/16/19 07:20 125 H 120/83 05/16/19 07:15 120/83 05/16/19 07:05 98.2 F 124 H 28 H 112/77 90 L Intake and Output 05/16/19 05/16/19 05/16/19 06:59 14:59 22:59 Other: Weight 51.256 kg General: [non toxic], [no distress], [appears at stated age] Derm: [warm], [dry] Head: [atraumatic], [normocephalic], [symmetric] Eyes: [EOMI], [no lid lag], [anicteric sclera] Mouth: [no lip lesion], [mucus membranes moist] Cardiovascular: [S1S2 reg], [tachycardic], [positive DP pulse bilateral], Lungs: [CTA bilateral], [no rhonchi, no rales] , [no accessory muscle use] Abdominal: [soft], [ nontender to palpation], [no guarding], [no appreciable organomegaly], [feeding tube present without erythema] Ext: [no gross muscle atrophy], [no edema], [no contractures] Neuro: [ CN II-XI grossly intact], [no focal neuro deficits] Psych: [Alert], [oriented], [appropriate affect] Results CBC & Chem 7: 05/16/19 08:00 05/16/19 08:00 Labs: Abnormal Lab Results - Last 24 Hours (Table) 05/16/19 05/16/19 05/16/19 Range/Units 08:00 08:00 08:29 Plt Count 532 H (150-450) k/uL BUN 7 L (9-20) mg/dL Creatinine 0.55 L (0.66-1.25) mg/dL Glucose 438 H (74-99) mg/dL POC Glucose (mg/dL) 444 H (75-99) mg/dL 05/16/19 05/16/19 Range/Units 10:43 11:58 Plt Count (150-450) k/uL BUN (9-20) mg/dL Creatinine (0.66-1.25) mg/dL Glucose (74-99) mg/dL POC Glucose (mg/dL) 343 H 270 H (75-99) mg/dL Thrombosis Risk Factor Assmnt - Choose All That Apply Any of the Below Risk Factors Present?: Yes Each Factor Represents 1 point: Serious lung disease incl. pneumonia (< 1month) Other Risk Factors: No Other congenital or acquired thrombophilia - If yes, enter type in comment: No Thrombosis Risk Factor Assessment Total Risk Factor Score: 1 Thrombosis Risk Factor Assessment Level: Low Risk Assessment and Plan Assessment: Acute hypoxic respiratory failure secondary to mucous plugging and possible community-acquired pneumonia Cystic fibrosis Type 1 diabetes mellitus with hyperglycemia Chest x-ray shows mucous plugging right upper lobe with volume loss and increased paratracheal consolidation. Plans: Start Zosyn, levofloxacin. Resume Linezolid as part of home medications. Start Solu-Medrol 60 mg IV every 6 hours. DuoNeb scheduled and as needed for shortness of breath and wheezing. Resume Symbicort. Start Pulmozyme and hypertonic saline note as per Pulmonology recommendations. O2 per NC to maintain O2 saturation greater than 92%. Follow pulmonology recommendations. Plans: Resume Creon. [id number] glucose 270. Plans: Continue Lantus 50 units at bedtime. Insulin sliding scale. Regular Accu-Cheks. Hypoglycemic precautions. Patient is admitted for anticipated greater than 48 hours stay for acute hypoxic respiratory failure due to mucous plugging and community-acquired pneumonia. DVT prophylaxis: [SCD boots] Discussed with: [Patient] Anticipated discharge: [Home] Anticipated discharge place: [1-2 days] A total of [45] minutes was spent on the care of this complex patient more than 50% of the time was spent in counseling and care coordination. Patient names his family friend Marialuisa Weaver decision-maker indicates that he can't make decisions for himself. Patient reiterates wanting to remain full code.
--- NOTE | 2019-05-16 15:52 | P.CNPUL ---
History of Present Illness Consult date: 05/16/19 Requesting physician: Paul Newby Chief complaint: Shortness of breath History of present illness: This is a 19-year-old male patient well known to our practice from his previous admissions for DKA, and exacerbation of chronic bronchial asthma, and pulmonary infections, has a history of cystic fibrosis. We have recently saw him in consultation at the end of April, when patient was hospitalized for acute exace rbation of asthma, complicated by MRSA tracheobronchitis. Patient was treated with a combination of Zosyn and Levaquin and Zyvox for MRSA coverage, he clinically improved, and was discharged home in stable condition on Zyvox. His other medical history is significant for diabetes mellitus type I with previous episodes of DKA, depression, previous history of MRSA infection. Patient is in the process of trying to get established with the cystic fibrosis clinic at [facility]. We recommended for him to follow up with Dr. Palafox and become established with a local PCP, and patient was supposed to follow up with Dr. Bhatia in the office. He is on a combination of Pulmozyme, hypertonic saline, Symbicort, and albuterol inhalers, he has a CPT vest at home which he uses regularly. He takes Lantus 50 units at bedtime and Humalog sliding scale. He is on Creon for pancreatic insufficiency. His been compliant with his meds. On 05/16/2019 patient presented to the emergency department with a one-day history of increasing shortness of breath. Patient reports of fever at home of 10 2F. Denied any chest pain, denied hemoptysis, no nausea vomiting or diarrhea. Upon arrival to the emergency department patient was in the respiratory distress, hypoxic, satting only 90% on 2 L tachycardic. Chest x-ray showed right upper lobe bronchiectasis, with increasing peribronchial cuffing, with concern of mucous plugging in the right upper lobe and increasing right peritracheal consolidation. Patient was given a dose of azithromycin, a dose of Levaquin, and a dose of Zosyn, received IV steroids, and nebulized bronchodilators. Patient's lab work was reviewed showing a white blood cell count of 5.1, hemoglobin of 15.0, electrolytes were within normal limits, BUN was 7, creatinine is 0.5, troponin was negative 1, LFTs were within normal limits, serum acetone was negative. Review of Systems All systems: negative Constitutional: Denies chills, Denies fever Eyes: denies blurred vision, denies pain Ears, nose, mouth and throat: Denies headache, Denies sore throat Cardiovascular: Denies chest pain, Denies shortness of breath Respiratory: Reports dyspnea, Reports respiratory infections, Denies cough Gastrointestinal: Denies abdominal pain, Denies diarrhea, Denies nausea, Denies vomiting Musculoskeletal: Denies myalgias Integumentary: Denies pruritus, Denies rash Neurological: Denies numbness, Denies weakness Psychiatric: Denies anxiety, Denies depression Endocrine: Denies fatigue, Denies weight change Past Medical History Past Medical History: Diabetes Mellitus Additional Past Medical History / Comment(s): Cystic Fibrosis History of Any Multi-Drug Resistant Organisms: MRSA Date of last positivie culture/infection: 04/28/19 MDRO Source:: sputum Past Surgical History: No Surgical Hx Reported Additional Past Surgical History / Comment(s): feeding tube, port (removed) Past Anesthesia/Blood Transfusion Reactions: No Reported Reaction Past Psychological History: Depression Smoking Status: Never smoker Past Alcohol Use History: Rare Past Drug Use History: None Reported - Past Family History Father History Unknown: Yes Additional Family Medical History / Comment(s): States that he was adopted, but says that he thinks there isnt any family history on either side. Mother Family Medical History: No Reported History Additional Family Medical History / Comment(s): Pt is adopted but has had contact with natural mother and she is healthy. Medications and Allergies Home Medications Medication Instructions Recorded Confirmed Type Lipase/Protease/Amylase [Creon Dr 96,000 units PO QID 06/15/15 05/16/19 History 24,000 Units Capsule] Ergocalciferol [Vitamin D2 50,000 unit PO WE 02/17/19 05/16/19 History (DRISDOL)] Hypertonic Saline 3% Nebuliz 4 ml INHALATION RT-BID@1200,1900 02/17/19 05/16/19 History INSULIN LISPRO (HumaLOG) [humaLOG] See Protocol SQ AC-TID 02/17/19 05/16/19 History Albuterol Nebulized [Ventolin 2.5 mg INHALATION RT-Q4H PRN 04/26/19 05/16/19 History Nebulized] Linezolid 600 mg PO BID #20 tablet 04/29/19 05/16/19 Rx Budesonide-Formot 160-4.5 Mcg 2 puff INHALATION RT-BID 30 Days 04/30/19 05/16/19 Rx [Symbicort 160-4.5 Mcg Inhaler] #1 puff Pulmozyme 1 vial INHALATION RT-DAILY #0 04/30/19 05/16/19 Rx Insulin Glargine [Lantus] 50 units SQ HS 05/16/19 05/16/19 History Allergies Allergy/AdvReac Type Severity Reaction Status Date / Time sulfamethoxazole Allergy Unknown Verified 05/16/19 09:05 [From Bactrim] trimethoprim [From Bactrim] Allergy Unknown Verified 05/16/19 09:05 vancomycin Allergy Rash/Hives Verified 05/16/19 09:05 Physical Exam Vitals: Vital Signs Temp Pulse Resp BP Pulse Ox 05/16/19 12:10 112 H 41 H 126/89 95 05/16/19 12:00 108 H 30 H 126/89 96 05/16/19 11:50 114 H 29 H 126/89 94 L 05/16/19 11:40 112 H 18 126/89 94 L 05/16/19 11:30 103 H 18 126/89 95 05/16/19 11:20 112 H 23 126/89 95 05/16/19 11:10 116 H 27 H 126/89 93 L 05/16/19 11:00 126/89 05/16/19 10:50 117 H 16 126/89 94 L 05/16/19 10:40 117 H 22 93 L 05/16/19 10:30 120 H 15 126/89 93 L 05/16/19 10:20 122 H 28 H 92 L 05/16/19 10:10 130 H 18 126/89 91 L 05/16/19 10:00 128 H 23 126/89 92 L 05/16/19 09:50 131 H 25 H 126/89 92 L 05/16/19 09:40 137 H 37 H 126/89 92 L 05/16/19 09:39 100 F H 05/16/19 09:30 135 H 24 126/89 93 L 05/16/19 09:20 134 H 23 126/89 92 L 05/16/19 09:10 140 H 21 126/89 94 L 05/16/19 09:00 141 H 38 H 126/89 96 05/16/19 08:51 129 H 05/16/19 08:50 128 H 42 H 126/89 100 05/16/19 08:41 128 H 05/16/19 08:40 130 H 40 H 126/89 95 05/16/19 08:30 128 H 41 H 126/89 99 05/16/19 08:24 124 H 05/16/19 08:20 121 H 42 H 126/89 100 05/16/19 08:19 123 H 38 H 94 L 05/16/19 08:16 123 H 05/16/19 08:12 122 H 05/16/19 08:04 120 H 05/16/19 07:57 30 H 05/16/19 07:40 125 H 120/83 92 L 05/16/19 07:30 123 H 120/83 05/16/19 07:20 125 H 120/83 05/16/19 07:15 120/83 05/16/19 07:05 98.2 F 124 H 28 H 112/77 90 L Intake and Output 05/15/19 05/16/19 05/16/19 22:59 06:59 14:59 Other: Weight 51.256 kg GENERAL EXAM: Alert, pleasant, 18-year-old white male, resting in bed, currently on 2 L of oxygen comfortable in no apparent distress. HEAD: Normocephalic/atraumatic. EYES: Normal reaction of pupils, equal size. Conjunctiva pink, sclera white. NOSE: Clear with pink turbinates. THROAT: No erythema or exudates. NECK: No masses, no JVD, no thyroid enlargement, no adenopathy. CHEST: No chest wall deformity. Symmetrical expansion. LUNGS: Equal air entry with diffuse wheezing CVS: Regular rate and rhythm, normal S1 and S2, no gallops, no murmurs, no rubs. Tachycardic ABDOMEN: Soft, nontender. No hepatosplenomegaly, normal bowel sounds, no guarding or rigidity. EXTREMITIES: No clubbing, no edema, no cyanosis, 2+ pulses and upper and lower extremities. MUSCULOSKELETAL: Muscle strength and tone normal. SPINE: No scoliosis or deformity SKIN: No rashes CENTRAL NERVOUS SYSTEM: Alert and oriented -3. No focal deficits, tone is normal in all 4 extremities. PSYCHIATRIC: Alert and oriented -3. Appropriate affect. Intact judgment and insight. Results - Laboratory Findings CBC and BMP: 05/16/19 08:00 05/16/19 08:00 PT/INR, D-dimer PT 11.4 sec (9.0-12.0) 05/16/19 08:00 INR 1.1 (<1.2) 05/16/19 08:00 Abnormal lab findings: Abnormal Labs 05/16/19 05/16/19 05/16/19 08:00 08:00 08:29 Plt Count 532 H BUN 7 L Creatinine 0.55 L Glucose 438 H POC Glucose (mg/dL) 444 H 05/16/19 05/16/19 10:43 11:58 Plt Count BUN Creatinine Glucose POC Glucose (mg/dL) 343 H 270 H - Diagnostic Findings Chest x-ray: report reviewed, image reviewed Additional studies: EKG reviewed Assessment and Plan Plan: Assessment: #1. Acute exacerbation of cystic fibrosis, with tracheobronchitis, possibly related to MRSA #2. Recent hospitalization for tracheobronchitis related to MRSA #3. History of cystic fibrosis, in the process of transferring care to [facility] #4. Insulin-dependent diabetes mellitus #5. History of MRSA in the abdominal wall at the previous site of PEG tube insertion. #6. Chronic pancreatic insufficiency #7. Hyperglycemia with no evidence of DKA #8. Never smoker Plan: We'll continue nebulized bronchodilators, resume Pulmozyme, resume hypertonic saline, resume Pulmicort and Perforomist, continue with IV Solu-Medrol at 60 mg every 6 hours, resume home medications, including Lantus, he may require insulin infusion for hyperglycemia, there is no evidence of DKA on patient's blood work. Obtain sputum culture, antibiotic coverage with Zosyn and Levaquin and we will add oral Zyvox. Consult infectious disease. Have the patient bring in his home CPT vest. We'll continue to follow I performed a history & physical examination of the patient and discussed their management with my nurse practitioner, Carlita Guido. I reviewed the nurse practitioner's note and agree with the documented findings and plan of care. Lung sounds are positive for diffuse wheezes throughout the lung barbosa. The findings and the impression was discussed with the patient. I attest to the documentation by the nurse practitioner. Time with Patient: Greater than 30
[2019-05-16 16:41] LABS: Glucose,Whole Blood 512 mg/dL (75-99)
[2019-05-16] MEDS ORDERED: INSULIN ASPART (NovoLOG) 100 UNIT/ML VIAL SQ SCH ×2 (17:30)
[2019-05-16] MEDS: LIPASE 5,000/PROTEASE 17,000/AMYLASE 24,000 PO SCH ×2 (17:41→21:28)
[2019-05-16] MEDS: PIPERACILLIN-TAZOBACTAM 3.375 GM in SODIUM CHLORIDE 0.9% 100 ML IVPB SCH ×2 (17:45→23:31)
[2019-05-16] MEDS ORDERED: INSULIN ASPART (NovoLOG) 100 UNIT/ML VIAL SQ ONE (17:52)
[2019-05-16] MEDS ORDERED: INSULIN REGULAR BOLUS (FROM DRIP BAG) IV ONE (18:00)
[2019-05-16] MEDS ORDERED: INSULIN REGULAR 100 UNIT in SODIUM CHLORIDE 0.9% 100 ML IV SCH (18:00)
[2019-05-16] MEDS: methylPREDNISolone SOD SUCCI 125 MG/2 ML VIAL IV SCH ×2 (18:03→23:30)
[2019-05-16] MEDS ORDERED: HYPERTONIC SALINE 3% NEBULIZ 4 ML NEBU INHALATION SCH (19:00)
[2019-05-16] MEDS: SODIUM CHLORIDE 7% INHALATION SCH (20:48)
[2019-05-16] MEDS: SYMBICORT 160-4.5 MCG INHALER INHALATION SCH (20:52)
[2019-05-16 20:59] LABS: Glucose,Whole Blood 406 mg/dL (75-99)
[2019-05-16] MEDS ORDERED: INSULIN DETEMIR (LEVEMIR) 100 UNIT/ML SYR SQ SCH (21:00)
[2019-05-16] MEDS: INSULIN ASPART (NovoLOG) 100 UNIT/ML VIAL SQ SCH (21:27)
[2019-05-17] MEDS ORDERED: LINEZOLID 600 MG TAB PO SCH
[2019-05-17] MEDS: SODIUM CHLORIDE 0.9% 1,000 ML IV SCH ×2 (03:00→09:55)
[2019-05-17 06:04] LABS: Glucose,Whole Blood 185 mg/dL (75-99)
[2019-05-17] MEDS: INSULIN ASPART (NovoLOG) 100 UNIT/ML VIAL SQ SCH ×4 (06:10→17:31)
[2019-05-17] MEDS: methylPREDNISolone SOD SUCCI 125 MG/2 ML VIAL IV SCH ×4 (06:10→21:10)
[2019-05-17] MEDS: IPRATROPIUM-ALBUTEROL 3 ML NEB INHALATION SCH ×4 (07:14→20:10)
[2019-05-17 07:18] LABS: HCT 44.3 % (39.0-53.0); HGB 14.1 gm/dL (13.0-17.5); MCH 28.4 pg (25.0-35.0); MCHC 31.8 g/dL (31.0-37.0); MCV 89.4 fL (80.0-100.0); Mean Platelet Volume 7.1; Platelet Count 596 k/uL (150-450); RBC 4.96 m/uL (4.30-5.90); RDW 14.8 % (11.5-15.5); WBC 8.1 k/uL (3.8-10.6)
[2019-05-17] MEDS: DORNASE ALFA 1 MG/ML 2.5 ML AMP INHALATION SCH (07:26)
[2019-05-17 07:31] LABS: African American GFR (CKD) >90 (>60 ml/min/1.73 sqM); Anion Gap 10 mmol/L; Blood Urea Nitrogen 18 mg/dL (9-20); Calcium 9.6 mg/dL (8.4-10.2); Carbon Dioxide 27 mmol/L (22-30); Chloride 105 mmol/L (98-107); Glucose 175 mg/dL (74-99); Potassium 4.8 mmol/L (3.5-5.1); Sodium 142 mmol/L (137-145)
[2019-05-17] MEDS: SYMBICORT 160-4.5 MCG INHALER INHALATION SCH ×2 (07:40→20:10)
[2019-05-17] MEDS ORDERED: LEVOFLOXACIN 500MG-D5W PMX 500 MG in DEXTROSE/WATER 1 100ML.BAG IVPB SCH (08:00)
[2019-05-17] MEDS: LINEZOLID 600 MG TAB PO SCH ×2 (09:54→20:43)
[2019-05-17] MEDS: LIPASE 5,000/PROTEASE 17,000/AMYLASE 24,000 PO SCH ×4 (09:55→20:44)
[2019-05-17] MEDS: SODIUM CHLORIDE 7% INHALATION SCH ×2 (11:17→20:10)
--- NOTE | 2019-05-17 11:20 | P.PN ---
Subjective Progress Note Date: 05/17/19 Principal diagnosis: Shortness of breath Patient was seen and examined. No acute events overnight. Patient reports slight improvement in his breathing since yesterday. States that his 30% back to baseline. Continues to complain of cough productive of green sputum. He denies any chest pain or palpitations. No nausea or vomiting. No fever or chills. Objective - Vital Signs Vital signs: Vital Signs Temp 97.7 F 05/17/19 08:00 Pulse 111 H 05/17/19 08:00 Resp 16 05/17/19 08:00 BP 110/72 05/17/19 08:00 Pulse Ox 92 L 05/17/19 08:00 Intake & Output 05/16/19 05/17/19 05/17/19 18:59 06:59 18:59 Intake Total 1440 1200 Balance 1440 1200 Weight 51.256 kg 52.8 kg Intake: Oral 1440 1200 Other: # Voids 0 4 - Exam General: [non toxic], [no distress], [appears at stated age] Derm: [warm], [dry] Head: [atraumatic], [normocephalic], [symmetric] Eyes: [EOMI], [no lid lag], [anicteric sclera] Mouth: [no lip lesion], [mucus membranes moist] Cardiovascular: [S1S2 reg], [tachycardic], [positive DP pulse bilateral], Lungs: [CTA bilateral], [no rhonchi, no rales] , [no accessory muscle use] Abdominal: [soft], [ nontender to palpation], [no guarding], [no appreciable organomegaly], [feeding tube present without erythema] Ext: [no gross muscle atrophy], [no edema], [no contractures] Neuro: [no focal neuro deficits] Psych: [Alert], [oriented], [appropriate affect] - Labs CBC & Chem 7: 05/17/19 06:17 05/17/19 06:17 Labs: Abnormal Lab Results - Last 24 Hours (Table) 05/16/19 05/16/19 05/16/19 Range/Units 11:58 16:39 20:58 Plt Count (150-450) k/uL Creatinine (0.66-1.25) mg/dL Glucose (74-99) mg/dL POC Glucose (mg/dL) 270 H 512 H 406 H (75-99) mg/dL 05/17/19 05/17/19 05/17/19 Range/Units 06:02 06:17 06:17 Plt Count 596 H (150-450) k/uL Creatinine 0.62 L (0.66-1.25) mg/dL Glucose 175 H (74-99) mg/dL POC Glucose (mg/dL) 185 H (75-99) mg/dL Microbiology - Last 24 Hours (Table) 05/16/19 08:00 Blood Culture - Preliminary Blood No Growth after 24 hours 05/16/19 19:30 Gram Stain - Preliminary Sputum Assessment and Plan Assessment: Acute hypoxic respiratory failure secondary to mucous plugging and possible community-acquired pneumonia Cystic fibrosis Type 1 diabetes mellitus with hyperglycemia Chest x-ray shows mucous plugging right upper lobe with volume loss and increased paratracheal consolidation. Plans: Start Zosyn, levofloxacin. Resume Linezolid as part of home medications. Start Solu-Medrol 60 mg IV every 6 hours. DuoNeb scheduled and as needed for shortness of breath and wheezing. Resume Symbicort. Start Pulmozyme and hypertonic saline note as per Pulmonology recommendations. O2 per NC to maintain O2 saturation greater than 92%. Follow pulmonology recommendations. Plans: Resume Creon. [id number] glucose 175. Likely due to steroid use. Plans: Continue Lantus 50 units at bedtime. Insulin sliding scale. Diabetic diet. Regular Accu-Cheks. Hypoglycemic precautions. [Patient shows slight improvement since yesterday. He is pending clinical improvement. Optimize respiratory medications. Follow pulmonology co nsultation. Likely DC in 2-3 days.]
[2019-05-17 11:51] LABS: Glucose,Whole Blood 353 mg/dL (75-99)
[2019-05-17] MEDS: PIPERACILLIN-TAZOBACTAM 3.375 GM in SODIUM CHLORIDE 0.9% 100 ML IVPB SCH ×3 (12:20→23:24)
[2019-05-17 13:13] VITALS: BMI 18.2
--- NOTE | 2019-05-17 14:35 | P.PN ---
Subjective Progress Note Date: 05/17/19 Principal diagnosis: Acute exacerbation of cystic fibrosis with tracheobronchitis, recent MRSA This is a 19-year-old male patient well known to our practice from his previous admissions for DKA, and exacerbation of chronic bronchial asthma, and pulmonary infections, has a history of cystic fibrosis. We have recently saw him in consultation at the end of April, when patient was hospitalized for acute exacerbation of asthma, complicated by MRSA tracheobronchitis. Patient was treated with a combination of Zosyn and Levaquin and Zyvox for MRSA coverage, he clinically improved, and was discharged home in stable condition on Zyvox. His other medical history is significant for diabetes mellitus type I with previous episodes of DKA, depression, previous history of MRSA infection. Patient is in the process of trying to get established with the cystic fibrosis clinic at [facility]. We recommended for him to follow up with Dr. Palafox and become established with a local PCP, and patient was supposed to follow up with Dr. Bhatia in the office. He is on a combination of Pulmozyme, hypertonic saline, Symbicort, and albuterol inhalers, he has a CPT vest at home which he uses regularly. He takes Lantus 50 units at bedtime and Humalog sliding scale. He is on Creon for pancreatic insufficiency. His been compliant with his meds. On 05/16/2019 patient presented to the emergency department with a one-day history of increasing shortness of breath. Patient reports of fever at home of 10 2F. Denied any chest pain, denied hemoptysis, no nausea vomiting or diarrhea. Upon arrival to the emergency department patient was in the respiratory distress, hypoxic, satting only 90% on 2 L tachycardic. Chest x-ray showed right upper lobe bronchiectasis, with increasing peribronchial cuffing, with concern of mucous plugging in the right upper lobe and increasing right peritracheal consolidation. Patient was given a dose of azithromycin, a dose of Levaquin, and a dose of Zosyn, received IV steroids, and nebulized bronchodilators. Patient's lab work was reviewed showing a white blood cell count of 5.1, hemoglobin of 15.0, electrolytes were within normal limits, BUN was 7, creatinine is 0.5, troponin was negative 1, LFTs were within normal limits, serum acetone was negative. The patient is seen today 05/17/2019 in follow-up on the selective care unit. He is currently sitting up in bed. Awake and alert in no acute distress. Breathing a bit easier today compared to yesterday. Not quite back to his baseline. Still congested and dyspneic. Maintaining O2 saturation in the mid 90s on 2 L/m per nasal cannula. He is afebrile. Slightly tachycardic. Sputum culture positive for presumptive staph aureus. Final ID pending. Blood culture reveals no growth. White count 8.1. Hemoglobin 14.1. Creatinine 0.62. He is currently on Zosyn, Levaquin and Zyvox. Remains on DuoNeb inhalations, Pulmozyme, Symbicort, IV Solu-Medrol. Objective - Vital Signs Vital signs: Vital Signs Temp 98.2 F 05/17/19 12:00 Pulse 101 H 05/17/19 12:00 Resp 16 05/17/19 12:00 BP 126/70 05/17/19 12:00 Pulse Ox 95 05/17/19 12:00 Intake & Output 05/16/19 05/17/19 05/17/19 18:59 06:59 18:59 Intake Total 1440 1200 960 Balance 1440 1200 960 Weight 51.256 kg 52.8 kg 52.8 kg Intake: Oral 1440 1200 960 Other: # Voids 0 4 2 - Exam GENERAL EXAM: Alert, pleasant, 19-year-old male patient, resting in bed, currently on 2 L of oxygen comfortable in no apparent distress. HEAD: Normocephalic/atraumatic. EYES: Normal reaction of pupils, equal size. Conjunctiva pink, sclera white. NOSE: Clear with pink turbinates. THROAT: No erythema or exudates. NECK: No masses, no JVD, no thyroid enlargement, no adenopathy. CHEST: No chest wall deformity. Symmetrical expansion. LUNGS: Equal air entry with bilateral scattered rhonchi, diffuse wheezing CVS: Regular rate and rhythm, normal S1 and S2, no gallops, no murmurs, no rubs. Tachycardic ABDOMEN: Soft, nontender. No hepatosplenomegaly, normal bowel sounds, no guard ing or rigidity. EXTREMITIES: No clubbing, no edema, no cyanosis, 2+ pulses and upper and lower extremities. MUSCULOSKELETAL: Muscle strength and tone normal. SPINE: No scoliosis or deformity SKIN: No rashes CENTRAL NERVOUS SYSTEM: No focal deficits, tone is normal in all 4 extremities. PSYCHIATRIC: Alert and oriented -3. Appropriate affect. Intact judgment and insight. - Labs CBC & Chem 7: 05/17/19 06:17 05/17/19 06:17 Labs: Abnormal Lab Results - Last 24 Hours (Table) 05/16/19 05/16/19 05/17/19 Range/Units 16:39 20:58 06:02 Plt Count (150-450) k/uL Creatinine (0.66-1.25) mg/dL Glucose (74-99) mg/dL POC Glucose (mg/dL) 512 H 406 H 185 H (75-99) mg/dL 05/17/19 05/17/19 05/17/19 Range/Units 06:17 06:17 11:44 Plt Count 596 H (150-450) k/uL Creatinine 0.62 L (0.66-1.25) mg/dL Glucose 175 H (74-99) mg/dL POC Glucose (mg/dL) 353 H (75-99) mg/dL Microbiology - Last 24 Hours (Table) 05/16/19 19:30 Gram Stain - Preliminary Sputum Sputum Culture - Preliminary Presumptive Staph aureus 05/16/19 08:00 Blood Culture - Preliminary Blood No Growth after 24 hours Assessment and Plan Assessment: Assessment: #1. Acute exacerbation of cystic fibrosis, with tracheobronchitis, possibly related to MRSA #2. Recent hospitalization for tracheobronchitis related to MRSA #3. History of cystic fibrosis, in the process of transferring care to [facility] #4. Insulin-dependent diabetes mellitus #5. History of MRSA in the abdominal wall at the previous site of PEG tube insertion. #6. Chronic pancreatic insufficiency #7. Hyperglycemia with no evidence of DKA #8. Never smoker Plan: The patient was seen and evaluated by Dr. Brown. He is improved today compared to yesterday. Not quite back to his baseline. We'll continue with the current treatment plan. Final sputum culture ID pending. Presumptive MRSA. He remains on Zosyn and Levaquin and Zyvox. We will increase his activity as tolerated. We'll continue to follow. I, the cosigning physician, performed a history & physical examination of the patient. Lungs sounds with bilateral scattered rhonchi. Maintaining good O2 saturations in the 90s on 2 L/m per nasal cannula. I discussed the assessment and plan of care with my nurse practitioner, Evette Adkins. I attest to the above note as dictated by her.
[2019-05-17 15:12] LABS: Hemoglobin A1C 13.3 % (4.0-6.0)
[2019-05-17 16:50] LABS: Glucose,Whole Blood 533 mg/dL (75-99)
[2019-05-17 18:42] LABS: Glucose,Whole Blood 520 mg/dL (75-99)
[2019-05-17] MEDS ORDERED: INSULIN REGULAR BOLUS (FROM DRIP BAG) IV ONE (19:45)
[2019-05-17] MEDS ORDERED: INSULIN REGULAR 100 UNIT in SODIUM CHLORIDE 0.9% 100 ML IV SCH (19:45)
[2019-05-17 20:06] LABS: Glucose,Whole Blood 432 mg/dL (75-99)
[2019-05-17] MEDS ORDERED: INSULIN ASPART (NovoLOG) 100 UNIT/ML VIAL SQ SCH (21:00)
[2019-05-17] MEDS: INSULIN DETEMIR (LEVEMIR) 100 UNIT/ML SYR SQ SCH (21:10)
[2019-05-18 02:09] LABS: Glucose,Whole Blood 281 mg/dL (75-99)
[2019-05-18] MEDS: INSULIN ASPART (NovoLOG) 100 UNIT/ML VIAL SQ SCH ×5 (02:18→21:03)
[2019-05-18 06:27] LABS: HCT 36.9 % (39.0-53.0); MCHC 32.6 g/dL (31.0-37.0); Mean Platelet Volume 6.6; Platelet Count 463 k/uL (150-450); RBC 4.14 m/uL (4.30-5.90); RDW 13.9 % (11.5-15.5); WBC 10.2 k/uL (3.8-10.6)
[2019-05-18 06:31] LABS: Glucose,Whole Blood 181 mg/dL (75-99)
[2019-05-18 06:32] LABS: African American GFR (CKD) >90 (>60 ml/min/1.73 sqM); Anion Gap 10 mmol/L; Blood Urea Nitrogen 21 mg/dL (9-20); Calcium 9.3 mg/dL (8.4-10.2); Carbon Dioxide 24 mmol/L (22-30); Chloride 109 mmol/L (98-107); Glucose 130 mg/dL (74-99); Sodium 143 mmol/L (137-145)
[2019-05-18] MEDS: methylPREDNISolone SOD SUCCI 125 MG/2 ML VIAL IV SCH (06:32)
[2019-05-18] MEDS: SODIUM CHLORIDE 0.9% 1,000 ML IV SCH ×2 (06:51→17:42)
--- NOTE | 2019-05-18 07:08 | XR ---
EXAMINATION TYPE: XR chest 1V portable DATE OF EXAM: 05/18/2019 HISTORY: CF, monitoring progression. REFERENCE: Previous study dated 05/16/2019. FINDINGS: There is continuing right upper lobe airspace disease. There are patchy opacities throughou t the right lung and to a lesser extent the left lung. The heart is not enlarged. Pleural spaces appe ar clear. IMPRESSION: 1. DIFFUSE INCREASED MARKINGS MAY BE ON THE BASIS OF BRONCHIECTASIS. 2. CONTINUING AIRSPACE DISEASE IN THE RIGHT UPPER LOBE MAY REFLECT PNEUMONIA OR MUCOUS PLUGGING.
[2019-05-18] MEDS: IPRATROPIUM-ALBUTEROL 3 ML NEB INHALATION SCH ×4 (07:19→20:28)
[2019-05-18] MEDS: DORNASE ALFA 1 MG/ML 2.5 ML AMP INHALATION SCH (07:20)
[2019-05-18] MEDS: SYMBICORT 160-4.5 MCG INHALER INHALATION SCH ×2 (07:20→20:28)
[2019-05-18] MEDS ORDERED: INSULIN ASPART (NovoLOG) 100 UNIT/ML VIAL SQ SCH (07:30)
[2019-05-18] MEDS: LINEZOLID 600 MG TAB PO SCH ×2 (08:10→21:04)
[2019-05-18] MEDS: PIPERACILLIN-TAZOBACTAM 3.375 GM in SODIUM CHLORIDE 0.9% 100 ML IVPB SCH (08:10)
[2019-05-18] MEDS: LIPASE 5,000/PROTEASE 17,000/AMYLASE 24,000 PO SCH ×4 (08:10→21:03)
--- NOTE | 2019-05-18 08:30 | P.CONS ---
History of Present Illness - Reason for Consult Consult date: 05/17/19 Pneumonia and antibiotic recommendation Requesting physician: Fadia Brown - Chief Complaint Fever and increasing shortness of breath x 2 days - History of Present Illness Patient is a 19-year-old male with a past medical history significant for cystic fibrosis and recurrent pulmonary infection patient was recently admitted to this facility and was diagnosed with cystic fibrosis exacerbation patient's sputum were positive for MRSA patient was treated with oral Zyvox and discharged summary did mention oral Zyvox for 10 days however the patient said he was not discharged on any antibiotic, patient was doing okay until 2 days ago when he started having fever with chills fever was 102 degrees Fahrenheit the patient say at that time he was in [place] and he drived himself back to [place] , the patient did presented to [facility] yesterday with a chief complaints of increasing shortness of breath or cough which has been moderate intensity with some purulent sputum no hemoptysis denies any pleuritic chest pain no nausea no vomiting or choking on the food no abdominal pain and no diarrhea patient had did have a low-grade fever of 100 on presentation to the hospital his white count was normal chest x-ray with concern for mucous plugging right upper lobe and consolidation the patient has been started on a combination of Zosyn and Zyvox and Levaquin and infectious disease was consulted for further recommendation regarding antibiotic therapy Review of Systems CONSTITUTIONAL: Positive for weakness. Fever EYES: No complaint. ENT:No complaint. RESPIRATORY:As per history of present illness. CARDIOVASCULAR: No complaint. GENITOURINARY: No complaint. GASTROINTESTINAL: No complaint. MUSCULOSKELETAL: No complaint. INTEGUMENTARY: No complaint. PSYCHOLOGICAL: No complaint. ENDOCRINE: No complaint. NEUROLOGIC: No complaint. Past Medical History Past Medical History: Diabetes Mellitus Additional Past Medical History / Comment(s): Cystic Fibrosis History of Any Multi-Drug Resistant Organisms: MRSA Year Discovered:: 04/28/19 MDRO Source:: sputum Past Surgical History: No Surgical Hx Reported Additional Past Surgical History / Comment(s): feeding tube, port (removed) Past Anesthesia/Blood Transfusion Reactions: No Reported Reaction Past Psychological History: Depression Smoking Status: Never smoker Past Alcohol Use History: Rare Past Drug Use History: None Reported - Past Family History Father History Unknown: Yes Additional Family Medical History / Comment(s): States that he was adopted, but says that he thinks there isnt any family history on either side. Mother Family Medical History: No Reported History Additional Family Medical History / Comment(s): Pt is adopted but has had contact with natural mother and she is healthy. Medications and Allergies Home Medications Medication Instructions Recorded Confirmed Type Lipase/Protease/Amylase [Creon Dr 96,000 units PO QID 06/15/15 05/16/19 History 24,000 Units Capsule] Ergocalciferol [Vitamin D2 50,000 unit PO WE 02/17/19 05/16/19 History (DRISDOL)] Hypertonic Saline 3% Nebuliz 4 ml INHALATION RT-BID@1200,1900 02/17/19 05/16/19 History INSULIN LISPRO (HumaLOG) [humaLOG] See Protocol SQ AC-TID 02/17/19 05/16/19 History Albuterol Nebulized [Ventolin 2.5 mg INHALATION RT-Q4H PRN 04/26/19 05/16/19 History Nebulized] Linezolid 600 mg PO BID #20 tablet 04/29/19 05/16/19 Rx Budesonide-Formot 160-4.5 Mcg 2 puff INHALATION RT-BID 30 Days 04/30/19 05/16/19 Rx [Symbicort 160-4.5 Mcg Inhaler] #1 puff Pulmozyme 1 vial INHALATION RT-DAILY #0 04/30/19 05/16/19 Rx Insulin Glargine [Lantus] 50 units SQ HS 05/16/19 05/16/19 History Allergies Allergy/AdvReac Type Severity Reaction Status Date / Time sulfamethoxazole Allergy Unknown Verified 05/16/19 09:05 [From Bactrim] trimethoprim [From Bactrim] Allergy Unknown Verified 05/16/19 09:05 vancomycin Allergy Rash/Hives Verified 05/16/19 09:05 Physical Exam Vitals: Vital Signs Temp Pulse Pulse Resp BP Pulse Ox 05/17/19 16:32 100 05/17/19 16:19 102 H 95 05/17/19 12:00 98.2 F 101 H 16 126/70 95 05/17/19 11:48 105 H 18 05/17/19 11:32 101 H 18 05/17/19 11:31 101 H 18 05/17/19 11:20 103 H 18 05/17/19 08:00 97.7 F 111 H 16 110/72 92 L 05/17/19 07:28 101 H 18 05/17/19 07:26 101 H 16 05/17/19 07:16 100 16 05/17/19 03:41 98.5 F 95 16 115/57 94 L 05/16/19 23:47 98.4 F 114 H 18 109/61 92 L 05/16/19 21:20 102 H 05/16/19 21:05 102 H 05/16/19 21:02 102 H 05/16/19 20:49 102 H 05/16/19 20:00 111 H 16 103/65 92 L Intake and Output 05/17/19 05/17/19 05/17/19 06:59 14:59 22:59 Intake Total 1200 960 Balance 1200 960 Intake: Oral 1200 960 Other: # Voids 4 2 Weight 52.8 kg 52.8 kg GENERAL DESCRIPTION: young male lying in bed, no distress. No tachypnea or accessory muscle of respiration use. HEENT: Shows Pallor , no scleral icterus. Oral mucous membrane is dry. No pharyngeal erythema or thrush NECK: Trachea central, no thyromegaly. LUNGS: Unlabored breathing. Decreased intensity of breath sound bilaterally. No wheeze or crackle. HEART: S1, S2, regular rate and rhythm. No loud murmur ABDOMEN: Soft, no tenderness , guarding or rigidity, no organomegaly EXTREMITIES: No edema of feet. SKIN: No rash, no masses palpable. NEUROLOGICAL: The patient is awake, alert, oriented x3, mood and affect normal. Results CBC & Chem 7: 05/18/19 05:57 05/18/19 05:57 Labs: Abnormal Lab Results - Last 24 Hours (Table) 05/16/19 05/17/19 05/17/19 Range/Units 20:58 06:02 06:17 Plt Count (150-450) k/uL Creatinine (0.66-1.25) mg/dL Glucose (74-99) mg/dL POC Glucose (mg/dL) 406 H 185 H (75-99) mg/dL Hemoglobin A1c 13.3 H (4.0-6.0) % 05/17/19 05/17/19 05/17/19 Range/Units 06:17 06:17 11:44 Plt Count 596 H (150-450) k/uL Creatinine 0.62 L (0.66-1.25) mg/dL Glucose 175 H (74-99) mg/dL POC Glucose (mg/dL) 353 H (75-99) mg/dL Hemoglobin A1c (4.0-6.0) % 05/17/19 Range/Units 16:48 Plt Count (150-450) k/uL Creatinine (0.66-1.25) mg/dL Glucose (74-99) mg/dL POC Glucose (mg/dL) 533 H (75-99) mg/dL Hemoglobin A1c (4.0-6.0) % Microbiology - Last 24 Hours (Table) 05/16/19 19:30 Gram Stain - Preliminary Sputum Sputum Culture - Preliminary Presumptive Staph aureus 05/16/19 08:00 Blood Culture - Preliminary Blood No Growth after 24 hours Assessment and Plan Assessment: 1-patient is a 19-year-old male with a diagnosis of cystic fibrosis and recurren t pulmonary infection with recent admission to this facility and the sputum were positive for MRSA patient now with evidence of right upper lobe pneumonia could be related to MRSA however, gram-negative infection not entirely excluded 2-Patient with multiple antibiotics ALLERGIES that will limit the number of antibiotic safe to use (1) Cystic fibrosis exacerbation Current Visit: Yes Status: Acute Code(s): E84.9 - CYSTIC FIBROSIS, UNSPECIFIED SNOMED Code(s): 108478377 (2) Pneumonia Current Visit: Yes Status: Acute Code(s): J18.9 - PNEUMONIA, UNSPECIFIED ORGANISM SNOMED Code(s): 791887243 Plan: 1-we'll try to obtain sputum for Gram stain and culture 2-zyvox 600 mg twice a day along with Zosyn should provide adequate antibiotic coverage and discontinue the Levaquin we will follow on clinical condition and culture to further adjust medication if needed Thank you for this consultation will follow this patient along with you Time with Patient: Greater than 30
--- NOTE | 2019-05-18 08:51 | P.PN ---
Subjective Progress Note Date: 05/18/19 Principal diagnosis: Shortness of breath Patient was seen and examined. No acute events overnight. Female accompanied sleeping in bed alongside patient. Patient reports no changes in his breathing since yesterday. Overall, has improved since admission. He denies any chest p ain or palpitations. No nausea or vomiting. No fever or chills. States that he can bring in his G-tube supplies from home. Patient is refusing insulin drip. He was accompanied yesterday by a female visitor was irate and upset, requesting transfer to [facility] due to lack of supplies at [facility]. Objective - Vital Signs Vital signs: Vital Signs Temp 97.9 F 05/18/19 08:10 Pulse 93 05/18/19 08:10 Resp 16 05/18/19 08:10 BP 111/53 05/18/19 08:10 Pulse Ox 92 L 05/18/19 08:10 Intake & Output 05/17/19 05/18/19 05/18/19 18:59 06:59 18:59 Intake Total 1820 750 Balance 1820 750 Weight 52.8 kg 54.7 kg Intake: IV 750 Sodium Chloride 0.9% 1, 750 000 ml @ 75 mls/hr IV . [id number] [facility] Rx#:[id number] Oral 1820 Other: # Voids 2 2 - Exam General: [non toxic], [no distress], [appears at stated age] Derm: [warm], [dry] Head: [atraumatic], [normocephalic], [symmetric] Eyes: [EOMI], [no lid lag], [anicteric sclera] Cardiovascular: [S1S2 reg], [no murmur] Lungs: [CTA bilateral], [no rhonchi, no rales] , [no accessory muscle use] Ext: [no gross muscle atrophy], [no edema], [no contractures] Neuro: [no focal neuro deficits] Psych: [Alert], [oriented], [appropriate affect] - Labs CBC & Chem 7: 05/18/19 05:57 05/18/19 05:57 Labs: Abnormal Lab Results - Last 24 Hours (Table) 05/17/19 05/17/19 05/17/19 Range/Units 06:17 11:44 16:48 RBC (4.30-5.90) m/uL Hgb (13.0-17.5) gm/dL Hct (39.0-53.0) % Plt Count (150-450) k/uL Chloride (98-107) mmol/L BUN (9-20) mg/dL Glucose (74-99) mg/dL POC Glucose (mg/dL) 353 H 533 H (75-99) mg/dL Hemoglobin A1c 13.3 H (4.0-6.0) % 05/17/19 05/17/19 05/18/19 Range/Units 18:36 20:05 02:08 RBC (4.30-5.90) m/uL Hgb (13.0-17.5) gm/dL Hct (39.0-53.0) % Plt Count (150-450) k/uL Chloride (98-107) mmol/L BUN (9-20) mg/dL Glucose (74-99) mg/dL POC Glucose (mg/dL) 520 H 432 H 281 H (75-99) mg/dL Hemoglobin A1c (4.0-6.0) % 05/18/19 05/18/19 05/18/19 Range/Units 05:57 05:57 06:29 RBC 4.14 L (4.30-5.90) m/uL Hgb 12.0 L (13.0-17.5) gm/dL Hct 36.9 L (39.0-53.0) % Plt Count 463 H (150-450) k/uL Chloride 109 H (98-107) mmol/L BUN 21 H (9-20) mg/dL Glucose 130 H (74-99) mg/dL POC Glucose (mg/dL) 181 H (75-99) mg/dL Hemoglobin A1c (4.0-6.0) % Microbiology - Last 24 Hours (Table) 05/16/19 19:30 Gram Stain - Preliminary Sputum Sputum Culture - Preliminary Presumptive Staph aureus 05/16/19 08:00 Blood Culture - Preliminary Blood No Growth after 24 hours Assessment and Plan Assessment: Acute hypoxic respiratory failure secondary to mucous plugging and community- acquired pneumonia Cystic fibrosis Type 1 diabetes mellitus with hyperglycemia Chest x-ray shows mucous plugging right upper lobe with volume loss and increased paratracheal consolidation. Infiltrate redemonstrated on chest x-ray today. Plans: ID consulted, recommends continuing linezolid and Zosyn, discontinue levofloxacin. Decrease Solu-Medrol from 60 mg IV every 6 hours to twice a day though patient refuse. DuoNeb scheduled and as needed for shortness of breath and wheezing. Resume Symbicort. Start Pulmozyme and hypertonic saline note as per Pulmonology recommendations. O2 per NC to maintain O2 saturation greater than 92%. Follow pulmonology recommendations. Plans: Resume Creon. [id number] glucose 181. Likely due to steroid use. Plans: Continue Lantus 5 0 units at bedtime. Insulin sliding scale. Diabetic diet. Regular Accu-Cheks. Hypoglycemic precautions. Case was discussed with Dr. Hoffman and [facility] regarding possible transfer. At this time, he feels that patient is improving and would like to check back tomorrow. He recommends reducing dosage of Solu-Medrol and advising patient to bring in the extension to per feeding. We will attempt to follow-up with [facility] in the morning. [Patient shows improvement since admission. He is pending clinical improvement. Optimize respiratory medications. Follow pulmonology consultation. Likely DC in 2-3 days.]
[2019-05-18] MEDS ORDERED: methylPREDNISolone SOD SUCCI 125 MG/2 ML VIAL IV SCH (09:00)
[2019-05-18] MEDS: SODIUM CHLORIDE 7% INHALATION SCH ×2 (11:12→20:29)
[2019-05-18 11:40] LABS: Glucose,Whole Blood 266 mg/dL (75-99)
--- NOTE | 2019-05-18 12:07 | P.PN ---
Subjective Progress Note Date: 05/18/19 Principal diagnosis: Cystic fibrosis exacerbation and tracheobronchitis possibly related to MRSA This is a 19-year-old male patient well known to our practice from his previous admissions for DKA, and exacerbation of chronic bronchial asthma, and pulmonary infections, has a history of cystic fibrosis. We have recently saw him in consultation at the end of April, when patient was hospitalized for acute exacerbation of asthma, complicated by MRSA tracheobronchitis. Patient was treated with a combination of Zosyn and Levaquin and Zyvox for MRSA coverage, he clinically improved, and was discharged home in stable condition on Zyvox. His other medical history is significant for diabetes mellitus type I with previous episodes of DKA, depression, previous history of MRSA infection. Patient is in the process of trying to get established with the cystic fibrosis clinic at [facility]. We recommended for him to follow up with Dr. Palafox and become established with a local PCP, and patient was supposed to follow up with Dr. Bhatia in the office. He is on a combination of Pulmozyme, hypertonic saline, Symbicort, and albuterol inhalers, he has a CPT vest at home which he uses regularly. He takes Lantus 50 units at bedtime and Humalog sliding scale. He is on Creon for pancreatic insufficiency. His been compliant with his meds. On 05/16/2019 patient presented to the emergency department with a one-day history of increasing shortness of breath. Patient reports of fever at home of 10 2F. Denied any chest pain, denied hemoptysis, no nausea vomiting or diarrhea. Upon arrival to the emergency department patient was in the respiratory distress, hypoxic, satting only 90% on 2 L tachycardic. Chest x-ray showed right upper lobe bronchiectasis, with increasing peribronchial cuffing, with concern of mucous plugging in the right upper lobe and increasing right peritracheal consolidation. Patient was given a dose of azithromycin, a dose of Levaquin, and a dose of Zosyn, received IV steroids, and nebulized bronchodilators. Patient's lab work was reviewed showing a white blood cell count of 5.1, hemoglobin of 15.0, electrolytes were within normal limits, BUN was 7, creatinine is 0.5, troponin was negative 1, LFTs were within normal limits, serum acetone was negative. The patient is seen today 05/17/2019 in follow-up on the selective care unit. He is currently sitting up in bed. Awake and alert in no acute distress. Breathing a bit easier today compared to yesterday. Not quite back to his baseline. Still congested and dyspneic. Maintaining O2 saturation in the mid 90s on 2 L/m per nasal cannula. He is afebrile. Slightly tachycardic. Sputum culture positive for presumptive staph aureus. Final ID pending. Blood culture reveals no growth. White count 8.1. Hemoglobin 14.1. Creatinine 0.62. He is currently on Zosyn, Levaquin and Zyvox. Remains on DuoNeb inhalations, Pulmozyme, Symbicort, IV Solu-Medrol. On 05/18/2019 patient seen in follow-up. He is calm and comfortable, he is sleeping, but easily arousable. He denies any acute distress, he does not want to take any steroids, IV or oral. States he will raise his blood sugars quite significantly, lung sounds reveal good air entry bilaterally, no wheezing, no rales. There have been no fever or chills. His sputum culture was positive for methicillin-resistant staph aureus, with sensitivity to Zyvox. Currently he is on a combination of Levaquin, Zosyn and Zyvox. ID service is following, he is on nebulized bronchodilators, Pulmozyme, Symbicort, and we will discontinue IV Solu-Medrol today. No hemoptysis, no chest pain no chest wall tenderness. Objective - Vital Signs Vital signs: Vital Signs Temp 97.9 F 05/18/19 08:10 Pulse 100 05/18/19 11:36 Resp 18 05/18/19 11:36 BP 111/53 05/18/19 08:10 Pulse Ox 92 L 05/18/19 08:10 Intake & Output 05/17/19 05/18/19 05/18/19 18:59 06:59 18:59 Intake Total 1820 750 480 Balance 1820 750 480 Weight 52.8 kg 54.7 kg Intake: IV 750 Sodium Chloride 0.9% 1, 750 000 ml @ 75 mls/hr IV . [id number] RANDA Rx#:[id number] Oral 1820 480 Other: # Voids 2 2 - Exam GENERAL EXAM: Alert, pleasant, 19-year-old male patient, resting in bed, currently on 2 L of oxygen comfortable in no apparent distress. HEAD: Normocephalic/atraumatic. EYES: Normal reaction of pupils, equal size. Conjunctiva pink, sclera white. NOSE: Clear with pink turbinates. THROAT: No erythema or exudates. NECK: No masses, no JVD, no thyroid enlargement, no adenopathy. CHEST: No chest wall deformity. Symmetrical expansion. LUNGS: Equal air entry with bilateral scattered rhonchi, diffuse wheezing CVS: Regular rate and rhythm, normal S1 and S2, no gallops, no murmurs, no rubs. Tachycardic ABDOMEN: Soft, nontender. No hepatosplenomegaly, normal bowel sounds, no guarding or rigidity. EXTREMITIES: No clubbing, no edema, no cyanosis, 2+ pulses and upper and lower extremities. MUSCULOSKELETAL: Muscle strength and tone normal. SPINE: No scoliosis or deformity SKIN: No rashes CENTRAL NERVOUS SYSTEM: No focal deficits, tone is normal in all 4 extremities. PSYCHIATRIC: Alert and oriented -3. Appropriate affect. Intact judgment and insight. - Labs CBC & Chem 7: 05/18/19 05:57 05/18/19 05:57 Labs: Abnormal Lab Results - Last 24 Hours (Table) 05/17/19 05/17/19 05/17/19 Range/Units 06:17 16:48 18:36 RBC (4.30-5.90) m/uL Hgb (13.0-17.5) gm/dL Hct (39.0-53.0) % Plt Count (150-450) k/uL Chloride (98-107) mmol/L BUN (9-20) mg/dL Glucose (74-99) mg/dL POC Glucose (mg/dL) 533 H 520 H (75-99) mg/dL Hemoglobin A1c 13.3 H (4.0-6.0) % 05/17/19 05/18/19 05/18/19 Range/Units 20:05 02:08 05:57 RBC 4.14 L (4.30-5.90) m/uL Hgb 12.0 L (13.0-17.5) gm/dL Hct 36.9 L (39.0-53.0) % Plt Count 463 H (150-450) k/uL Chloride (98-107) mmol/L BUN (9-20) mg/dL Glucose (74-99) mg/dL POC Glucose (mg/dL) 432 H 281 H (75-99) mg/dL Hemoglobin A1c (4.0-6.0) % 05/18/19 05/18/19 05/18/19 Range/Units 05:57 06:29 11:37 RBC (4.30-5.90) m/uL Hgb (13.0-17.5) gm/dL Hct (39.0-53.0) % Plt Count (150-450) k/uL Chloride 109 H (98-107) mmol/L BUN 21 H (9-20) mg/dL Glucose 130 H (74-99) mg/dL POC Glucose (mg/dL) 181 H 266 H (75-99) mg/dL Hemoglobin A1c (4.0-6.0) % Microbiology - Last 24 Hours (Table) 05/16/19 19:30 Gram Stain - Final Sputum Sputum Culture - Final Methicillin resist S. aureus 05/16/19 08:00 Blood Culture - Preliminary Blood No Growth after 48 hours Assessment and Plan Plan: Assessment: #1. Acute exacerbation of cystic fibrosis, with tracheobronchitis, related to MRSA #2. Recent hospitalization for tracheobronchitis related to MRSA #3. History of cystic fibrosis, in the process of transferring care to [facility] #4. Insulin-dependent diabetes mellitus #5. History of MRSA in the abdominal wall at the previous site of PEG tube insertion. #6. Chronic pancreatic insufficiency #7. Hyperglycemia with no evidence of DKA #8. Never smoker Plan: Continue with current medical treatment, will discontinue the IV steroids, not significantly congested or bronchospastic. Patient has been refusing the steroids related to his concern about hyperglycemia. His sputum culture did come back positive for MRSA, and patient is currently on carbonation of Levaqui n, Zosyn and Zyvox, ID service is following, clinically patient is improving, today's follow-up chest x-ray shows diffuse increased markings on the bases of bronchiectasis, and right upper lobe airspace disease that could reflect pneumonia or mucus plugging. Patient is well covered with antibiotics, will await further input from infectious disease service as far as antibiotics after discharge home. Increase activity, clinically improving, possible discharge home in the next 24-48 hours. I performed a history & physical examination of the patient and discussed their management with my nurse practitioner, Carlita Guido. I reviewed the nurse practitioner's note and agree with the documented findings and plan of care. Lung sounds are positive for diffuse wheezes throughout the lung barbosa. The findings and the impression was discussed with the patient. I attest to the documentation by the nurse practitioner. Time with Patient: Less than 30
[2019-05-18 17:11] LABS: Glucose,Whole Blood 431 mg/dL (75-99)
[2019-05-18] MEDS ORDERED: INSULIN ASPART (NovoLOG) 100 UNIT/ML VIAL SQ ONE (18:30)
[2019-05-18 20:33] LABS: Glucose,Whole Blood 217 mg/dL (75-99)
[2019-05-18] MEDS: INSULIN DETEMIR (LEVEMIR) 100 UNIT/ML SYR SQ SCH (21:03)
[2019-05-18 21:43] VITALS: RESP 18
--- NOTE | 2019-05-18 23:19 | PN ---
PROGRESS NOTE DATE OF SERVICE: 05/18/2019. REASON FOR FOLLOWUP VISIT: MRSA pneumonia. INTERVAL HISTORY: The patient is currently afebrile. The patient seems to be slightly upset about the care he has received on his last admission as well as this admission. He wants to be transferred to [facility]. The patient's fever has resolved, though denies any chest pain. He did have a cough bringing up some sputum. No nausea, no vomiting. No abdominal pain. No diarrhea. PHYSICAL EXAMINATION: Blood pressure 124/70 with a pulse of 88, temperature of 98.2. General description is a young male up in the room in no distress. Respiratory system: Unlabored breathing with decreased breath sounds in the base, no wheeze. Heart: S1-S2 regular rate and rhythm. Abdomen soft, no tenderness. LABS: Hemoglobin is 12 with white count 10.2, BUN of 21, creatinine 0.72. Sputum with MRSA. Blood culture has been negative. DIAGNOSTIC IMPRESSION AND PLAN: Patient with cystic fibrosis with underlying MRSA pneumonia, right upper lobe. Patient at this time covered with Zyvox as no gram negative has been grown. We will discontinue Zosyn and monitor his clinical course closely. Continue supportive care. MMODL / IJN: [id number] /
[2019-05-19 02:08] LABS: Glucose,Whole Blood 90 mg/dL (75-99)
[2019-05-19] MEDS: INSULIN ASPART (NovoLOG) 100 UNIT/ML VIAL SQ SCH ×3 (02:30→13:08)
[2019-05-19 03:08] LABS: Glucose,Whole Blood 45 mg/dL (75-99)
[2019-05-19 03:27] LABS: Glucose,Whole Blood 69 mg/dL (75-99)
[2019-05-19 03:43] LABS: Glucose,Whole Blood 94 mg/dL (75-99)
[2019-05-19 05:20] VITALS: BP 123/84; TEMP 97.6
[2019-05-19] MEDS: SODIUM CHLORIDE 0.9% 1,000 ML IV SCH (05:41)
[2019-05-19 07:16] LABS: Glucose,Whole Blood 72 mg/dL (75-99)
[2019-05-19] MEDS: SYMBICORT 160-4.5 MCG INHALER INHALATION SCH (07:22)
[2019-05-19] MEDS: IPRATROPIUM-ALBUTEROL 3 ML NEB INHALATION SCH ×2 (07:22→11:25)
[2019-05-19] MEDS: DORNASE ALFA 1 MG/ML 2.5 ML AMP INHALATION SCH (07:30)
[2019-05-19] MEDS: LINEZOLID 600 MG TAB PO SCH (08:54)
[2019-05-19] MEDS: LIPASE 5,000/PROTEASE 17,000/AMYLASE 24,000 PO SCH ×2 (08:54→13:09)
[2019-05-19 10:59] LABS: Glucose,Whole Blood 160 mg/dL (75-99)
[2019-05-19] MEDS: SODIUM CHLORIDE 7% INHALATION SCH (11:27)
[2019-05-19 12:05] VITALS: PULSE 92
--- NOTE | 2019-05-19 14:55 | P.DS ---
Providers Date of admission: 05/16/19 10:08 Expected date of discharge: 05/19/19 Attending physician: Paul Newby MD Consults: 05/16/19 10:09 Consult Physician Urgent Consulting Provider: Fadia Brown Consult Reason/Comments: cystic fibrosis patient (exacerbation/mucous plug), fever Do you want consulting provider notified?: Yes 05/16/19 16:44 Consult Physician Urgent Consulting Provider: Nia Cisneros Consult Reason/Comments: cystic fibrosis patient (exacerbation/mucous plug), fever Do you want consulting provider notified?: Yes Primary care physician: Stated None Hospital Course: 19-year-old male with PMH of cystic fibrosis and type 1 diabetes mellitus presents the ED for fever and shortness of breath. Patient reports feeling febrile to 102F yesterday when he was in [place]. Patient states that he made his way back to [place] around 2 AM. Patient reports waking up in the morning feeling extremely short of breath. Patient reports a cough that is new and productive of green sputum. He denies any sick contacts. Patient attempted to try hypertonic saline along with physio vest without much relief. Patient states that he has been attempting to connect with the operation manager and [facility] unsuccessfully since his move from [place]. Patient denies any headache, lower extremity edema, nausea or vomiting, chest pain, palpitations, changes in urination or bowel habits. No changes in appetite or weight. Patient denies any dizziness, numbness/weakness/tingling of the extremities. Patient reports having a feeding tube but is also able to the feet by mouth. In the ED, patient was tachycardic mostly in the 120s with T-max of 100F. Patient had a respiratory rate of 41. Patient was saturating 90% on room air. CBC showed elevated platelet count of 532. Coagulation panel was negative. CMP was negative except for glucose of 438. Troponin was less than 0.012. Acetone was negative. Chest x-ray showed concerns of mucous plugging in the right upper lobe with increasing right paratracheal consolidation. Patient was admitted for further workup and management. Patient was initially started on linezolid, Zosyn and levofloxacin for broad- spectrum antibiotic coverage. He was also started on Symbicort, Pulmozyme, hypertonic saline and DuoNeb scheduled and as needed for shortness of breath and wheezing. Solu-Medrol was initially started and was discontinued due to patient refusal and elevated blood sugars. His home dose of insulin was started for hyperglycemia and type 1 diabetes mellitus. Patient showed considerable improvement in his breathing compared to admission. Family requested transfer to [facility] to be evaluated by a cystic fibrosis specialist. I was able to discuss the case with Dr. Hoffman at [facility] and it was thought that patient would remain at [facility] as he was improving and stable and able to bring in medications that were not on formulary from home. Patient was seen and examined. No acute events overnight. Patient reports no changes in his breathing since yesterday. He denies any chest pain or palpitations. No nausea or vomiting. No fever or chills. General: [non toxic], [no distress], [appears at stated age] Derm: [warm], [dry] Head: [atraumatic], [normocephalic], [symmetric] Eyes: [EOMI], [no lid lag], [anicteric sclera] Cardiovascular: [S1S2 reg], [tachycardic] Lungs: [CTA bilateral], [no rhonchi, no rales] , [no accessory muscle use] Ext: [no gross muscle atrophy], [no edema], [no contractures] Neuro: [no focal neuro deficits] Psych: [Alert], [oriented], [appropriate affect] Acute hypoxic respiratory failure secondary to mucous plugging and community- acquired pneumonia Cystic fibrosis Type 1 diabetes mellitus with hyperglycemia Chest x-ray shows mucous plugging right upper lobe with volume loss and increased paratracheal consolidation. Infiltrate redemonstrated on chest x-ray today. Cultures positive for MRSA. Plans: ID consulted, recommends continuing linezolid, levofloxacin and Zosyn discontinued. Discontinue Solu-Medrol as per pulmonology. DuoNeb scheduled and as needed for shortness of breath and wheezing. Resume Symbicort. Start Pulmozyme and hypertonic saline note as per Pulmonology recommendations. O2 per NC to maintain O2 saturation greater than 92%. Follow pulmonology recommendations. Plans: Resume Creon. [id number] glucose 160. Likely due to steroid use. Plans: Continue Lantus 50 units at bedtime. Insulin sliding scale. Diabetic diet. Regular Accu-Cheks. Hypoglycemic precautions. [Patient shows improvement since admission. Discussed with his brother, explained to him that transfer of patient is not possible at this time due to his clinical improvement along with the ability for him to bring home medications that we don't have an formulary. Discussed that going to [facility] ED would be the quickest way to be seen there. He has passed his 6 minute walk test and does not require oxygen. Patient cleared from pulmonology standpoint per RN. We will get the patient to ambulate with pulse ox alongside his brother for possible discharge this afternoon. This complex discharge took 45 minutes to complete.] Pertinent Studies: Chest x-ray Patient Condition at Discharge: Stable Plan - Discharge Summary Discharge Rx Participant: No New Discharge Prescriptions: Continue Lipase/Protease/Amylase [Joselo Smith 24,000 Units Capsule] 96,000 units PO QID Ergocalciferol [Vitamin D2 (DRISDOL)] 50,000 unit PO WE INSULIN LISPRO (HumaLOG) [humaLOG] See Protocol SQ AC-TID Hypertonic Saline 3% Nebuliz 4 ml INHALATION RT-BID@1200,1900 Albuterol Nebulized [Ventolin Nebulized] 2.5 mg INHALATION RT-Q4H PRN PRN Reason: Shortness Of Breath Budesonide-Formot 160-4.5 Mcg [Symbicort 160-4.5 Mcg Inhaler] 2 puff INHALATION RT-BID 30 Days #1 puff Pulmozyme 1 vial INHALATION RT-DAILY #0 Insulin Glargine [Lantus] 50 units SQ HS No Action Linezolid 600 mg PO BID #20 tablet Discharge Medication List Lipase/Protease/Amylase [Joselo Smith 24,000 Units Capsule] 96,000 units PO QID 06/15/15 [History] Ergocalciferol [Vitamin D2 (DRISDOL)] 50,000 unit PO WE 02/17/19 [History] Hypertonic Saline 3% Nebuliz 4 ml INHALATION RT-BID@1200,1900 02/17/19 [History] INSULIN LISPRO (HumaLOG) [humaLOG] See Protocol SQ AC-TID 02/17/19 [History] Albuterol Nebulized [Ventolin Nebulized] 2.5 mg INHALATION RT-Q4H PRN 04/26/19 [History] Linezolid 600 mg PO BID #20 tablet 04/29/19 [Rx] Budesonide-Formot 160-4.5 Mcg [Symbicort 160-4.5 Mcg Inhaler] 2 puff INHALATION RT-BID 30 Days #1 puff 04/30/19 [Rx] Pulmozyme 1 vial INHALATION RT-DAILY #0 04/30/19 [Rx] Insulin Glargine [Lantus] 50 units SQ HS 05/16/19 [History] Follow up Appointment(s)/Referral(s): None,Stated [Primary Care Provider] - 1-2 days Nia Cisneros MD [STAFF PHYSICIAN] - 1 Week Fadia Brown MD [STAFF PHYSICIAN] - 1 Week Activity/Diet/Wound Care/Special Instructions: Diet: Diabetic Follow-up PCP within 1-2 days of discharge. Follow-up with pulmonology within 1 week of discharge. Follow-up with infectious disease within 1 week of discharge. Take all medications as advised. Discharge Disposition: HOME SELF-CARE
--- NOTE | 2019-05-19 15:42 | P.PN ---
Subjective Progress Note Date: 05/19/19 Principal diagnosis: Cystic fibrosis exacerbation and tracheobronchitis possibly related to MRSA This is a 19-year-old male patient well known to our practice from his previous admissions for DKA, and exacerbation of chronic bronchial asthma, and pulmonary infections, has a history of cystic fibrosis. We have recently saw him in consultation at the end of April, when patient was hospitalized for acute exacerbation of asthma, complicated by MRSA tracheobronchitis. Patient was treated with a combination of Zosyn and Levaquin and Zyvox for MRSA coverage, he clinically improved, and was discharged home in stable condition on Zyvox. His other medical history is significant for diabetes mellitus type I with previous episodes of DKA, depression, previous history of MRSA infection. Patient is in the process of trying to get established with the cystic fibrosis clinic at [facility]. We recommended for him to follow up with Dr. Palafox and become established with a local PCP, and patient was supposed to follow up with Dr. Bhatia in the office. He is on a combination of Pulmozyme, hypertonic saline, Symbicort, and albuterol inhalers, he has a CPT vest at home which he uses regularly. He takes Lantus 50 units at bedtime and Humalog sliding scale. He is on Creon for pancreatic insufficiency. His been compliant with his meds. On 05/16/2019 patient presented to the emergency department with a one-day history of increasing shortness of breath. Patient reports of fever at home of 10 2F. Denied any chest pain, denied hemoptysis, no nausea vomiting or diarrhea. Upon arrival to the emergency department patient was in the respiratory distress, hypoxic, satting only 90% on 2 L tachycardic. Chest x-ray showed right upper lobe bronchiectasis, with increasing peribronchial cuffing, with concern of mucous plugging in the right upper lobe and increasing right peritracheal consolidation. Patient was given a dose of azithromycin, a dose of Levaquin, and a dose of Zosyn, received IV steroids, and nebulized bronchodilators. Patient's lab work was reviewed showing a white blood cell count of 5.1, hemoglobin of 15.0, electrolytes were within normal limits, BUN was 7, creatinine is 0.5, troponin was negative 1, LFTs were within normal limits, serum acetone was negative. The patient is seen today 05/17/2019 in follow-up on the selective care unit. He is currently sitting up in bed. Awake and alert in no acute distress. Breathing a bit easier today compared to yesterday. Not quite back to his baseline. Still congested and dyspneic. Maintaining O2 saturation in the mid 90s on 2 L/m per nasal cannula. He is afebrile. Slightly tachycardic. Sputum culture positive for presumptive staph aureus. Final ID pending. Blood culture reveals no growth. White count 8.1. Hemoglobin 14.1. Creatinine 0.62. He is currently on Zosyn, Levaquin and Zyvox. Remains on DuoNeb inhalations, Pulmozyme, Symbicort, IV Solu-Medrol. On 05/18/2019 patient seen in follow-up. He is calm and comfortable, he is sleeping, but easily arousable. He denies any acute distress, he does not want to take any steroids, IV or oral. States he will raise his blood sugars quite significantly, lung sounds reveal good air entry bilaterally, no wheezing, no rales. There have been no fever or chills. His sputum culture was positive for methicillin-resistant staph aureus, with sensitivity to Zyvox. Currently he is on a combination of Levaquin, Zosyn and Zyvox. ID service is following, he is on nebulized bronchodilators, Pulmozyme, Symbicort, and we will discontinue IV Solu-Medrol today. No hemoptysis, no chest pain no chest wall tenderness. On 05/09/2019 patient seen in follow-up. Occasional cough with production of greenish colored sputum, no specific complaints, he states his breathing is "the same", he provides very vague answers. Does not appear to be in any acute distress, lung sounds reveal a few scattered crackles, no wheezes, no rhonchi, room air pulse ox is 94-97%, tolerates ambulation, blood culture has shown no growth, sputum culture showed MRSA, Levaquin and Zosyn have been discontinued and patient is currently on Zyvox. No acute issues overnight, no new labs, no new chest x-rays, no chest wall tenderness, no hemoptysis. Increase activity as tolerated, patient is probably stable for discharge home today Objective - Vital Signs Vital signs: Vital Signs Temp 97.6 F 05/19/19 05:00 Pulse 92 05/19/19 11:55 Resp 18 05/19/19 05:00 BP 123/84 05/19/19 05:00 Pulse Ox 94 L 05/19/19 07:52 Intake & Output 05/18/19 05/19/19 05/19/19 18:59 06:59 18:59 Intake Total 480 2410 600 Balance 480 2410 600 Intake: IV 750 600 Sodium Chloride 0.9% 1, 750 600 000 ml @ 75 mls/hr IV . [id number] RANDA Rx#:[id number] Oral 480 1660 Other: # Voids 1 1 - Exam GENERAL EXAM: Alert, pleasant, 19-year-old male patient, resting in bed, currently on room air with a pulse ox of 94% comfortable in no apparent distress. HEAD: Normocephalic/atraumatic. EYES: Normal reaction of pupils, equal size. Conjunctiva pink, sclera white. NOSE: Clear with pink turbinates. THROAT: No erythema or exudates. NECK: No masses, no JVD, no thyroid enlargement, no adenopathy. CHEST: No chest wall deformity. Symmetrical expansion. LUNGS: Equal air entry with minimal bibasilar crackles, no wheezing CVS: Regular rate and rhythm, normal S1 and S2, no gallops, no murmurs, no rubs. Tachycardic ABDOMEN: Soft, nontender. No hepatosplenomegaly, normal bowel sounds, no guarding or rigidity. EXTREMITIES: No clubbing, no edema, no cyanosis, 2+ pulses and upper and lower extremities. MUSCULOSKELETAL: Muscle strength and tone normal. SPINE: No scoliosis or deformity SKIN: No rashes CENTRAL NERVOUS SYSTEM: No focal deficits, tone is normal in all 4 extremities. PSYCHIATRIC: Alert and oriented -3. Appropriate affect. Intact judgment and insight. - Labs CBC & Chem 7: 05/18/19 05:57 05/18/19 05:57 Labs: Abnormal Lab Results - Last 24 Hours (Table) 05/18/19 05/18/19 05/19/19 Range/Units 17:07 20:32 03:07 POC Glucose (mg/dL) 431 H 217 H 45 L (75-99) mg/dL 05/19/19 05/19/19 05/19/19 Range/Units 03:26 07:13 10:57 POC Glucose (mg/dL) 69 L 72 L 160 H (75-99) mg/dL Microbiology - Last 24 Hours (Table) 05/16/19 08:00 Blood Culture - Preliminary Blood No Growth after 72 hours 05/16/19 19:30 Gram Stain - Final Sputum Sputum Culture - Final Methicillin resist S. aureus Assessment and Plan Plan: Assessment: #1. Acute exacerbation of cystic fibrosis, with tracheobronchitis, related to MRSA #2. Recent hospitalization for tracheobronchitis related to MRSA #3. History of cystic fibrosis, in the process of transferring care to [facility] #4. Insulin-dependent diabetes mellitus #5. History of MRSA in the abdominal wall at the previous site of PEG tube insertion. #6. Chronic pancreatic insufficiency #7. Hyperglycemia with no evidence of DKA #8. Never smoker Plan: No specific complaints, occasional cough no significant congestion, no fever or chills, patient is on appropriate antibiotics for evidence of MRSA in his sputum, Levaquin and Zosyn have been discontinued, patient is on Zyvox. No acute issues overnight, increase activity as tolerated, patient is stable for discharge home today. He'll need follow-up appointment with Dr. Bhatia in the office in 2 weeks. I performed a history & physical examination of the patient and discussed their management with my nurse practitioner, Carlita Guido. I reviewed the nurse practitioner's note and agree with the documented findings and plan of care. Lung sounds are positive for diffuse wheezes throughout the lung barbosa. The findings and the impression was discussed with the patient. I attest to the documentation by the nurse practitioner. Time with Patient: Less than 30
--- NOTE | 2019-05-19 18:08 | PN ---
PROGRESS NOTE DATE OF SERVICE: 05/19/2019. REASON FOR FOLLOWUP: MRSA pneumonia. INTERVAL HISTORY: The patient is currently afebrile, has been breathing about the same. Continue to have a cough but no worsening. No nausea. No vomiting. No abdominal pain or any diarrhea. PHYSICAL EXAMINATION: Blood pressure 123/84 with a pulse of 92, temperature 97.6. He is 94% on room air. General description is a young male lying in bed in no distress. Respiratory system: Unlabored breathing, decreased breath sounds in the bases, with no wheeze. Heart S1, S2. Regular rate and rhythm. Abdomen soft, no tenderness. LABS: No new labs have been obtained today. DIAGNOSTIC IMPRESSION AND PLAN: Patient with cystic fibrosis in this patient with a component of pneumonia. Sputum has been MRSA. Currently covered with Zyvox. He will need at least 10 days to 2 week course of oral Zyvox on discharge for which the case hardener has been alerted to arrange for medication on discharge. Continue supportive care. MMODL / IJN: [id number] /
== END 2019-05-19 15:40 | disposition home or self-care (01) | DRG 177 ==
LOC: EC 07:02 → 3SCARD 10:08 → 3NMEDONC 05-18 16:24
PROVIDERS: ADMIT Family Medicine; ATTEND Family Medicine
DX: J15.212 Pneumonia due to Methicillin resistant Staphylococcus aureus (principal); E84.0 Cystic fibrosis with pulmonary manifestations; J96.01 Acute respiratory failure with hypoxia; T17.890A Other foreign object in other parts of respiratory tract causing asphyxiation, initial encounter; J47.0 Bronchiectasis with acute lower respiratory infection; E10.65 Type 1 diabetes mellitus with hyperglycemia; J40 Bronchitis, not specified as acute or chronic; T38.0X5A Adverse effect of glucocorticoids and synthetic analogues, initial encounter; F32.9 Major depressive disorder, single episode, unspecified; K86.89 Other specified diseases of pancreas; Z53.20 Procedure and treatment not carried out because of patient's decision for unspecified reasons; Z86.14 Personal history of Methicillin resistant Staphylococcus aureus infection; Z79.4 Long term (current) use of insulin; Z88.1 Allergy status to other antibiotic agents; Z88.2 Allergy status to sulfonamides; Z79.51 Long term (current) use of inhaled steroids
CPT/HCPCS: 36415; 71045; 80048; 80053; 82009; 83036; 83605; 84484; 85025; 85027; 85610; 85730; 87040; 87070; 87077; 87186; 87205; 87502; 93005; 94640; 96365; 96375; 99285

== ENCOUNTER 2019-08-24 17:44 | Emergency (ER) | payer OTHER ==
[2019-08-24 17:48] VITALS: BP 122/74; PULSE 124; RESP 18; TEMP 97.9
[2019-08-24] MEDS ORDERED: Acetaminophen-Codeine 300-30mg TAB PO STA (18:02)
--- NOTE | 2019-08-24 18:04 | ED ---
Lower Extremity Injury HPI - General Chief Complaint: Extremity Injury, Lower Stated Complaint: left foot pain Time Seen by Provider: 08/24/19 17:53 Source: patient, RN notes reviewed, old records reviewed Mode of arrival: ambulatory Limitations: no limitations - History of Present Illness Initial Comments: this is a 19-year-old male presents today for evaluation of trip and fall really unknown injury. Patient history of cystic fibrosis presents here with left lower extremity left ankle pain. No other injury noted. Patient does admit to drinking heavily the night before and not remembering the events surrounding the incident. MD Complaint: ankle injury (left) -: hour(s) Injury: Ankle: Left Type of Injury: inversion Place: home Severity: moderate Severity scale (1-10): 4 Improves With: nothing Worsens With: nothing Other Symptoms: loss of consciousness Associated Symptoms: numbness - Related Data Home Medications Medication Instructions Recorded Confirmed Lipase/Protease/Amylase [Creon Dr 96,000 units PO QID 06/15/15 05/16/19 24,000 Units Capsule] Ergocalciferol [Vitamin D2 50,000 unit PO WE 02/17/19 05/16/19 (DRISDOL)] Hypertonic Saline 3% Nebuliz 4 ml INHALATION RT-BID@1200,1900 02/17/19 05/16/19 INSULIN LISPRO (HumaLOG) [humaLOG] See Protocol SQ AC-TID 02/17/19 05/16/19 Albuterol Nebulized [Ventolin 2.5 mg INHALATION RT-Q4H PRN 04/26/19 05/16/19 Nebulized] Insulin Glargine [Lantus] 50 units SQ HS 05/16/19 05/16/19 Previous Rx's Medication Instructions Recorded Budesonide-Formot 160-4.5 Mcg 2 puff INHALATION RT-BID 30 Days 04/30/19 [Symbicort 160-4.5 Mcg Inhaler] #1 puff Pulmozyme 1 vial INHALATION RT-DAILY #0 04/30/19 Linezolid [Zyvox] 600 mg PO Q12HR #28 tab 05/19/19 Allergies Allergy/AdvReac Type Severity Reaction Status Date / Time sulfamethoxazole Allergy Unknown Verified 08/24/19 17:48 [From Bactrim] trimethoprim [From Bactrim] Allergy Unknown Verified 08/24/19 17:48 vancomycin Allergy Rash/Hives Verified 08/24/19 17:48 Review of Systems ROS Statement: Those systems with pertinent positive or pertinent negative responses have been documented in the HPI. ROS Other: All systems not noted in ROS Statement are negative. Past Medical History Past Medical History: Diabetes Mellitus Additional Past Medical History / Comment(s): Cystic Fibrosis History of Any Multi-Drug Resistant Organisms: MRSA Date of last positivie culture/infection: 05/16/19 MDRO Source:: sputum Past Surgical History: No Surgical Hx Reported Additional Past Surgical History / Comment(s): feeding tube, port (removed) Past Anesthesia/Blood Transfusion Reactions: No Reported Reaction Past Psychological History: Depression Smoking Status: Never smoker Past Alcohol Use History: Rare Past Drug Use History: None Reported - Past Family History Father History Unknown: Yes Additional Family Medical History / Comment(s): States that he was adopted, but says that he thinks there isnt any family history on either side. Mother Family Medical History: No Reported History Additional Family Medical History / Comment(s): Pt is adopted but has had contact with natural mother and she is healthy. General Exam Limitations: no limitations General appearance: alert, in no apparent distress Head exam: Present: atraumatic, normocephalic, normal inspection Eye exam: Present: normal appearance, PERRL, EOMI. Absent: scleral icterus, conjunctival injection, periorbital swelling ENT exam: Present: normal exam, mucous membranes moist Neck exam: Present: normal inspection. Absent: tenderness, meningismus, lymphadenopathy Respiratory exam: Present: normal lung sounds bilaterally. Absent: respiratory distress, wheezes, rales, rhonchi, stridor Cardiovascular Exam: Present: normal rhythm, tachycardia, normal heart sounds. Absent: systolic murmur, diastolic murmur, rubs, gallop, clicks GI/Abdominal exam: Present: soft, normal bowel sounds. Absent: distended, tenderness, guarding, rebound, rigid Extremities exam: Present: normal inspection, full ROM, normal capillary refill. Absent: tenderness, pedal edema, joint swelling, calf tenderness Back exam: Present: normal inspection Neurological exam: Present: alert, oriented X3, CN II-XII intact Psychiatric exam: Present: normal affect, normal mood Skin exam: Present: warm, dry, intact, normal color. Absent: rash Course Vital Signs 08/24/19 17:46 Temperature 97.9 F Pulse Rate 124 H Respiratory 18 Rate Blood Pressure 122/74 O2 Sat by Pulse 98 Oximetry Medical Decision Making - Medical Decision Making 19 male here with ankle injury or excursion continue Motrin Tylenol, splint with Aircast as needed. Patient can be discharged home - Radiology Data Radiology results: report reviewed (x-ray left ankle is negative for acute traumatic injury), image reviewed Disposition Clinical Impression: Fall, Left ankle sprain Disposition: HOME SELF-CARE Condition: Good Instructions (If sedation given, give patient instructions): Ankle Sprain (ED) Is patient prescribed a controlled substance at d/c from ED?: No Referrals: None,Stated [Primary Care Provider] - 1-2 days
--- NOTE | 2019-08-24 18:39 | XR ---
EXAMINATION TYPE: XR ankle complete LT DATE OF EXAM: 08/24/2019 COMPARISON: NONE HISTORY: Pain TECHNIQUE: 3 views FINDINGS: Ankle mortise is anatomic. I see no fracture nor dislocation. Joint spaces are normal. IMPRESSION: Negative left ankle exam.
== END 2019-08-24 19:36 | disposition home or self-care (01) ==
LOC: EC 17:44
DX: S93.402A Sprain of unspecified ligament of left ankle, initial encounter (principal); E84.9 Cystic fibrosis, unspecified; E11.9 Type 2 diabetes mellitus without complications; Z88.1 Allergy status to other antibiotic agents; Z88.2 Allergy status to sulfonamides; Z79.4 Long term (current) use of insulin; Z86.14 Personal history of Methicillin resistant Staphylococcus aureus infection; W01.0XXA Fall on same level from slipping, tripping and stumbling without subsequent striking against object, initial encounter
CPT/HCPCS: 29515; 99284

== ENCOUNTER 2019-12-04 05:49 | Emergency (ER) | payer MEDICARE, OTHER ==
[2019-12-04 05:56] VITALS: TEMP 97.5
[2019-12-04] MEDS ORDERED: SODIUM CHLORIDE 0.9% 500 ML 500 ML IV ONE (06:21)
[2019-12-04] MEDS ORDERED: diphenhydrAMINE 50 MG/ML 1 ML VIAL IVP STA (06:22)
[2019-12-04] MEDS ORDERED: METOCLOPRAMIDE 5 MG/ML 2 ML VIAL IVP STA (06:22)
--- NOTE | 2019-12-04 06:40 | ED ---
Headache HPI - General Chief Complaint: Headache Stated Complaint: headache Time Seen by Provider: 12/04/19 06:03 Source: patient, RN notes reviewed Mode of arrival: ambulatory Limitations: no limitations - History of Present Illness Initial Comments: This is a 19-year-old male presents emergency Department chief complaint of a headache. Patient states that he never gets headaches states that he developed a headache on Sunday which was alleviated with acetaminophen again the headache returned on Sunday alleviated with acetaminophen. Patient stated to get off work on Sunday morning and this headache has been persistent ever since. Patient states that medications are not helping. He denies any fevers, chills. He states felt slightly nauseated no vomiting no neck pain or neck stiffness no fevers or chills. He does admit that he is a diabetic has not checked his blood sugar in 24 hours. Patient denies any sick contacts no chest pain or shortness breath. Patient does admit that he has cystic fibrosis. - Related Data Home Medications Medication Instructions Recorded Confirmed Lipase/Protease/Amylase [Creon Dr 96,000 units PO QID 06/15/15 05/16/19 24,000 Units Capsule] Ergocalciferol [Vitamin D2 50,000 unit PO WE 02/17/19 05/16/19 (DRISDOL)] Hypertonic Saline 3% Nebuliz 4 ml INHALATION RT-BID@1200,1900 02/17/19 05/16/19 INSULIN LISPRO (HumaLOG) [humaLOG] See Protocol SQ AC-TID 02/17/19 05/16/19 Albuterol Nebulized [Ventolin 2.5 mg INHALATION RT-Q4H PRN 04/26/19 05/16/19 Nebulized] Insulin Glargine [Lantus] 50 units SQ HS 05/16/19 05/16/19 Previous Rx's Medication Instructions Recorded Budesonide-Formot 160-4.5 Mcg 2 puff INHALATION RT-BID 30 Days 04/30/19 [Symbicort 160-4.5 Mcg Inhaler] #1 puff Pulmozyme 1 vial INHALATION RT-DAILY #0 04/30/19 Linezolid [Zyvox] 600 mg PO Q12HR #28 tab 05/19/19 Allergies Allergy/AdvReac Type Severity Reaction Status Date / Time sulfamethoxazole Allergy Unknown Verified 08/24/19 17:48 [From Bactrim] trimethoprim [From Bactrim] Allergy Unknown Verified 08/24/19 17:48 vancomycin Allergy Rash/Hives Verified 08/24/19 17:48 Review of Systems ROS Statement: Those systems with pertinent positive or pertinent negative responses have been documented in the HPI. ROS Other: All systems not noted in ROS Statement are negative. Past Medical History Past Medical History: Diabetes Mellitus Additional Past Medical History / Comment(s): Cystic Fibrosis History of Any Multi-Drug Resistant Organisms: MRSA Date of last positivie culture/infection: 05/16/19 MDRO Source:: sputum Past Surgical History: No Surgical Hx Reported Additional Past Surgical History / Comment(s): feeding tube, port (removed) Past Anesthesia/Blood Transfusion Reactions: No Reported Reaction Past Psychological History: No Psychological Hx Reported Smoking Status: Never smoker Past Alcohol Use History: Rare Past Drug Use History: None Reported - Past Family History Father History Unknown: Yes Additional Family Medical History / Comment(s): States that he was adopted, but says that he thinks there isnt any family history on either side. Mother Family Medical History: No Reported History Additional Family Medical History / Comment(s): Pt is adopted but has had contact with natural mother and she is healthy. General Exam Limitations: no limitations General appearance: alert, in no apparent distress Head exam: Present: atraumatic, normocephalic, normal inspection Eye exam: Present: normal appearance, PERRL, EOMI. Absent: scleral icterus, conjunctival injection, periorbital swelling ENT exam: Present: normal exam, normal oropharynx, mucous membranes moist, TM's normal bilaterally Neck exam: Present: normal inspection, full ROM. Absent: tenderness, meningismus, lymphadenopathy Respiratory exam: Present: normal lung sounds bilaterally. Absent: respiratory distress, wheezes, rales, rhonchi, stridor Cardiovascular Exam: Present: regular rate, normal rhythm, normal heart sounds. Absent: systolic murmur, diastolic murmur, rubs, gallop, clicks GI/Abdominal exam: Present: soft, normal bowel sounds. Absent: distended, tenderness, guarding, rebound, rigid Back exam: Absent: CVA tenderness (R), CVA tenderness (L) Neurological exam: Present: alert, oriented X3, CN II-XII intact, reflexes normal, other (Finger to nose intact bilaterally without over shooting). Absent: motor sensory deficit Skin exam: Present: warm, dry, intact, normal color. Absent: rash Course Vital Signs 12/04/19 05:52 Temperature 97.5 F L Pulse Rate 86 Respiratory 18 Rate Blood Pressure 132/76 O2 Sat by Pulse 100 Oximetry - Reevaluation(s) Reevaluation #1: 12/04/19 07:29 Patient reevaluated breast encompassing the bed with no complaints of headache. Updated on results. Patient's blood sugar was 50 was given orange juice at this time. Medical Decision Making - Medical Decision Making 19-year-old male presented for migraine type headache no history of migraines. CT was obtained which shows most likely a large polyp in the naso-oral pharynx region patient's will follow-up with ENT. Patient's headache has resolved with Benadryl, Reglan. Patient will be discharged in stable condition with follow- up. - Lab Data Result diagrams: 12/04/19 06:47 12/04/19 06:47 Lab Results 12/04/19 12/04/19 Range/Units 06:47 06:47 WBC 5.5 (3.8-10.6) k/uL RBC 5.27 (4.30-5.90) m/uL Hgb 15.2 (13.0-17.5) gm/dL Hct 45.3 (39.0-53.0) % MCV 86.0 (80.0-100.0) fL MCH 28.8 (25.0-35.0) pg MCHC 33.5 (31.0-37.0) g/dL RDW 13.9 (11.5-15.5) % Plt Count 354 (150-450) k/uL Neutrophils % 40 % Lymphocytes % 47 % Monocytes % 7 % Eosinophils % 3 % Basophils % 0 % Neutrophils # 2.2 (1.3-7.7) k/uL Lymphocytes # 2.6 (1.0-4.8) k/uL Monocytes # 0.4 (0-1.0) k/uL Eosinophils # 0.1 (0-0.7) k/uL Basophils # 0.0 (0-0.2) k/uL Sodium 139 (137-145) mmol/L Potassium 3.6 (3.5-5.1) mmol/L Chloride 98 (98-107) mmol/L Carbon Dioxide 31 H (22-30) mmol/L Anion Gap 10 mmol/L BUN 5 L (9-20) mg/dL Creatinine 0.52 L (0.66-1.25) mg/dL Est GFR (CKD-EPI)AfAm >90 (>60 ml/min/1.73 sqM) Est GFR (CKD-EPI)NonAf >90 (>60 ml/min/1.73 sqM) Glucose 50 L (74-99) mg/dL Calcium 9.7 (8.4-10.2) mg/dL Total Bilirubin 0.7 (0.2-1.3) mg/dL AST 35 (17-59) U/L ALT 22 (4-49) U/L Alkaline Phosphatase 73 (38-126) U/L Total Protein 7.8 (6.3-8.2) g/dL Albumin 4.6 (3.5-5.0) g/dL Disposition Clinical Impression: Nasal polyp, posterior, Migraine, Hypoglycemia Disposition: HOME SELF-CARE Condition: Stable Instructions (If sedation given, give patient instructions): Acute Headache (ED) Additional Instructions: Please return to the Emergency Department if symptoms worsen or any other concerns. Is patient prescribed a controlled substance at d/c from ED?: No Referrals: None,Stated [Primary Care Provider] - 1-2 days Lecnho Pretty MD [STAFF PHYSICIAN] - 1-2 days Time of Disposition: 07:31
[2019-12-04 06:55] LABS: Basophils % (A) 0 %; Eosinophils # (A) 0.1 k/uL (0-0.7); Eosinophils % (A) 3 %; HCT 45.3 % (39.0-53.0); HGB 15.2 gm/dL (13.0-17.5); Lymphocytes # (A) 2.6 k/uL (1.0-4.8); Lymphocytes % (A) 47 %; MCH 28.8 pg (25.0-35.0); MCHC 33.5 g/dL (31.0-37.0); Mean Platelet Volume 6.7; Monocytes # (A) 0.4 k/uL (0-1.0); Monocytes % (A) 7 %; Neutrophils # (A) 2.2 k/uL (1.3-7.7); Neutrophils % (A) 40 %; Platelet Count 354 k/uL (150-450); RBC 5.27 m/uL (4.30-5.90); RDW 13.9 % (11.5-15.5); WBC 5.5 k/uL (3.8-10.6)
[2019-12-04 07:07] LABS: ALT 22 U/L (4-49); African American GFR (CKD) >90 (>60 ml/min/1.73 sqM); Albumin 4.6 g/dL (3.5-5.0); Anion Gap 10 mmol/L; Blood Urea Nitrogen 5 mg/dL (9-20); Calcium 9.7 mg/dL (8.4-10.2); Carbon Dioxide 31 mmol/L (22-30); Chloride 98 mmol/L (98-107); Glucose 50 mg/dL (74-99); Non-African American GFR(CKD) >90 (>60 ml/min/1.73 sqM); Sodium 139 mmol/L (137-145); Total Bilirubin 0.7 mg/dL (0.2-1.3); Total Protein 7.8 g/dL (6.3-8.2)
[2019-12-04 07:12] LABS: Potassium 3.6 mmol/L (3.5-5.1)
[2019-12-04 07:13] LABS: AST 35 U/L (17-59); Alkaline Phosphatase 73 U/L (38-126)
--- NOTE | 2019-12-04 07:16 | CT ---
EXAMINATION TYPE: CT brain wo con DATE OF EXAM: 12/04/2019 COMPARISON: NONE HISTORY: Headache CT DLP: 1084.4 mGycm. Automated Exposure Control for Dose Reduction was Utilized. TECHNIQUE: CT scan of the head is performed without contrast. FINDINGS: There is no acute intracranial hemorrhage, mass effect, or midline shift identified. The ventricles and sulci are within normal limits in size. The globes are intact. Masslike density in t he left posterior nasopharyngeal airway is partially visualized measuring 3.2 x 2.0 cm pulling the na willie septum rightward. There appears to be postsurgical changes of the maxillary sinuses with mild to moderate mucosal thickening of the maxillary and ethmoid sinuses. Frontal sinuses are hypoplastic. Sp henoid sinuses also very hypoplastic with scant mucosal thickening. Mastoid air cells are well aerate d. Incidentally noted low-lying cerebellar tonsils without herniation. IMPRESSION: 1. No acute intracranial hemorrhage, mass effect, or midline shift is seen. 2. Masslike density in the left nasopharyngeal airway measuring 3.2 cm. Primary consideration is for polyp although other etiologies such as mucocele is possible. Direct visualization is recommended as well as consideration for nonemergent ENT consultation. 3. Mild to moderate pansinusitis.
[2019-12-04] MEDS ORDERED: KETOROLAC 30 MG/ML 1 ML VIAL IVP STA (07:19)
[2019-12-04 08:08] VITALS: BP 110/73; PULSE 82
[2019-12-04 08:11] LABS: Glucose,Whole Blood 191 mg/dL (75-99)
[2019-12-04 08:14] VITALS: RESP 20
== END 2019-12-04 08:15 | disposition home or self-care (01) ==
LOC: EC 05:49
DX: G43.909 Migraine, unspecified, not intractable, without status migrainosus (principal); E11.649 Type 2 diabetes mellitus with hypoglycemia without coma; J33.9 Nasal polyp, unspecified; E84.9 Cystic fibrosis, unspecified; Z88.1 Allergy status to other antibiotic agents; Z88.2 Allergy status to sulfonamides; Z79.4 Long term (current) use of insulin; Z79.899 Other long term (current) drug therapy; Z86.14 Personal history of Methicillin resistant Staphylococcus aureus infection
CPT/HCPCS: 36415; 80053; 85025; 70450; 99284; 96374; 96375 ×2; J1200; J2765; J1885

== ENCOUNTER 2019-12-11 09:48 | Emergency (ER) | payer MEDICARE, OTHER ==
[2019-12-11 09:53] VITALS: RESP 18
[2019-12-11 10:07] LABS: Glucose,Whole Blood 131 mg/dL (75-99)
[2019-12-11] MEDS ORDERED: SODIUM CHLORIDE 0.9% 500 ML 500 ML IV ONE (10:07)
[2019-12-11] MEDS ORDERED: SODIUM CHLORIDE 0.9% 1,000 ML IV ONE (10:07)
[2019-12-11] MEDS ORDERED: METOCLOPRAMIDE 5 MG/ML 2 ML VIAL IVP STA (10:07)
[2019-12-11] MEDS ORDERED: diphenhydrAMINE 50 MG/ML 1 ML VIAL IVP STA (10:08)
--- NOTE | 2019-12-11 10:09 | ED ---
General Adult HPI - General Chief complaint: Headache Stated complaint: migraine Time Seen by Provider: 12/11/19 09:55 Source: patient, RN notes reviewed, old records reviewed Mode of arrival: ambulatory Limitations: no limitations - History of Present Illness Initial comments: This is a 19-year-old male with past medical history significant for migraine headaches and diabetes. Patient states he started having headache last night he did vomit one time. Patient states he has no fever or chills per patient denies any abdominal pain. Patient denies chest pain difficulty breathing shortness of breath. Patient denies any slurred speech or any numbness or weakness. Patient states this is a same as previous migraine headaches and usually needs to come in and get some medications and then he is fine. Patient denies any other symptoms at this time - Related Data Home Medications Medication Instructions Recorded Confirmed Lipase/Protease/Amylase [Creon Dr 120,000 units PO QID 06/15/15 12/11/19 24,000 Units Capsule] Acetaminophen Tab [Tylenol Tab] 1,000 mg PO Q6HR PRN 12/11/19 12/11/19 Elexacaftor/Tezacaftor/Ivacaft 1 tab PO HS 12/11/19 12/11/19 [Trikafta 100/50/75 mg-150 mg] Elexacaftor/Tezacaftor/Ivacaft 2 tab PO DAILY 12/11/19 12/11/19 [Trikafta 100/50/75 mg-150 mg] Insulin Glargine,Hum.rec.anlog 50 unit SQ HS 12/11/19 12/11/19 [Lantus Solostar] Insulin Lispro [Admelog] See Protocol SQ AC-TID 12/11/19 12/11/19 Insuln Asp Prt/Insulin Aspart 30 unit SQ HS 12/11/19 12/11/19 [NovoLOG MIX 70-30 VIAL] Allergies Allergy/AdvReac Type Severity Reaction Status Date / Time sulfamethoxazole Allergy Unknown Verified 12/11/19 09:53 [From Bactrim] trimethoprim [From Bactrim] Allergy Unknown Verified 12/11/19 09:53 vancomycin Allergy Rash/Hives Verified 12/11/19 09:53 Review of Systems ROS Statement: Those systems with pertinent positive or pertinent negative responses have been documented in the HPI. ROS Other: All systems not noted in ROS Statement are negative. Past Medical History Past Medical History: Diabetes Mellitus Additional Past Medical History / Comment(s): Cystic Fibrosis History of Any Multi-Drug Resistant Organisms: MRSA Date of last positivie culture/infection: 05/16/19 MDRO Source:: sputum Past Surgical History: No Surgical Hx Reported Additional Past Surgical History / Comment(s): feeding tube, port (removed) Past Anesthesia/Blood Transfusion Reactions: No Reported Reaction Past Psychological History: No Psychological Hx Reported Smoking Status: Never smoker Past Alcohol Use History: Rare Past Drug Use History: None Reported - Past Family History Father History Unknown: Yes Additional Family Medical History / Comment(s): States that he was adopted, but says that he thinks there isnt any family history on either side. Mother Family Medical History: No Reported History Additional Family Medical History / Comment(s): Pt is adopted but has had contact with natural mother and she is healthy. General Exam - General Exam Comments Initial Comments: GENERAL: Patient is well-developed and well-nourished. Patient is nontoxic and well- hydrated and is in mild distress. ENT: Neck is soft and supple. No significant lymphadenopathy is noted. Oropharynx is clear. Moist mucous membranes. Neck has full range of motion without eliciting any pain. EYES: The sclera were anicteric and conjunctiva were pink and moist. Extraocular movements were intact and pupils were equal round and reactive to light. E yelids were unremarkable. PULMONARY: Unlabored respirations. Good breath sounds bilaterally. No audible rales rhonchi or wheezing was noted. CARDIOVASCULAR: There is a regular rate and rhythm without any murmurs gallops or rubs. ABDOMEN: Soft and nontender with normal bowel sounds. SKIN: Skin is clear with no lesions or rashes and otherwise unremarkable. NEUROLOGIC: Patient is alert and oriented x3. Cranial nerves II through XII are grossly intact. Motor and sensory are also intact. Normal speech, volume and content. Symmetrical smile. Patient has no photophobia MUSCULOSKELETAL: Normal extremities with adequate strength and full range of motion. No lower extremity swelling or edema. No calf tenderness. LYMPHATICS: No significant lymphadenopathy is noted PSYCHIATRIC: Normal psychiatric evaluation. Limitations: no limitations Course Vital Signs 12/11/19 09:51 Temperature 97.9 F Pulse Rate 108 H Respiratory 18 Rate Blood Pressure 117/85 O2 Sat by Pulse 98 Oximetry Medical Decision Making - Medical Decision Making Patient was given Benadryl and Reglan and his headache had dissipated completely. Patient slept after he was given the medication. I went back and reevaluated him woke him up and he indicated he has no headache at this time - Lab Data Lab Results 12/11/19 Range/Units 10:05 POC Glucose (mg/dL) 131 H (75-99) mg/dL POC Glu Detention Deputy ID Samara Mckinney Disposition Clinical Impression: Cephalgia Disposition: HOME SELF-CARE Condition: Good Instructions (If sedation given, give patient instructions): Acute Headache (ED) Additional Instructions: Patient should follow-up with his primary medical care doctor or neurology. Is patient prescribed a controlled substance at d/c from ED?: No Referrals: None,Stated [Primary Care Provider] - 1-2 days Time of Disposition: 11:44
[2019-12-11 11:55] VITALS: BP 122/80; PULSE 102; TEMP 98
== END 2019-12-11 11:55 | disposition home or self-care (01) ==
LOC: EC 09:48
DX: R51 Headache (principal); E11.9 Type 2 diabetes mellitus without complications; E84.9 Cystic fibrosis, unspecified; Z86.69 Personal history of other diseases of the nervous system and sense organs; Z86.14 Personal history of Methicillin resistant Staphylococcus aureus infection; Z79.4 Long term (current) use of insulin; Z79.899 Other long term (current) drug therapy; Z88.2 Allergy status to sulfonamides; Z88.1 Allergy status to other antibiotic agents; Z53.8 Procedure and treatment not carried out for other reasons
CPT/HCPCS: 36415; 99284; 96374; 96375; 96361; J1200; J2765

== ENCOUNTER 2019-12-31 12:17 | Emergency (ER) | payer MEDICARE, OTHER ==
[2019-12-31] MEDS ORDERED: KETOROLAC 30 MG/ML 1 ML VIAL IVP STA (12:53)
[2019-12-31] MEDS ORDERED: ONDANSETRON 4 MG/2 ML VIAL IVP STA (12:54)
[2019-12-31] MEDS ORDERED: SODIUM CHLORIDE 0.9% 500 ML 500 ML IV ONE (12:55)
--- NOTE | 2019-12-31 13:23 | ED ---
Headache HPI - General Chief Complaint: Headache Stated Complaint: headache Time Seen by Provider: 12/31/19 12:25 Mode of arrival: ambulatory Limitations: no limitations - History of Present Illness Initial Comments: 19yo male presenting to the ER today for cc of headache. Patient states this headache developed sometime between 8 and 12 PM he states he does not have a headache mainly down for nap and woke up with it he states it felt like it came on gradually he denies sudden onset or knowing the exact time of onset of the headache he denies this being the worst headache of his life. Patient dictated similar headache a few weeks prior he states he had a negative computed tomography scan. Aside from nasal polyps. Patient states he was nauseated with that headache as well. Denies vomiting but does have nausea today. Denies visual changes neck stiffness fevers weakness of the upper lower extremities speech changes, changes in cognition, denies light sensitivity. Patient states that the toradol that he used in the past worked. And presented today for treatment of headache. Remaining ROS (-). Upon arrival patient appears well there is no signs of acute distress. - Related Data Home Medications Medication Instructions Recorded Confirmed Lipase/Protease/Amylase [Creon Dr 120,000 units PO QID 06/15/15 12/11/19 24,000 Units Capsule] Acetaminophen Tab [Tylenol Tab] 1,000 mg PO Q6HR PRN 12/11/19 12/11/19 Elexacaftor/Tezacaftor/Ivacaft 1 tab PO HS 12/11/19 12/11/19 [Trikafta 100/50/75 mg-150 mg] Elexacaftor/Tezacaftor/Ivacaft 2 tab PO DAILY 12/11/19 12/11/19 [Trikafta 100/50/75 mg-150 mg] Insulin Glargine,Hum.rec.anlog 50 unit SQ HS 12/11/19 12/11/19 [Lantus Solostar] Insulin Lispro [Admelog] See Protocol SQ AC-TID 12/11/19 12/11/19 Insuln Asp Prt/Insulin Aspart 30 unit SQ HS 12/11/19 12/11/19 [NovoLOG MIX 70-30 VIAL] Allergies Allergy/AdvReac Type Severity Reaction Status Date / Time sulfamethoxazole Allergy Unknown Verified 12/31/19 12:22 [From Bactrim] trimethoprim [From Bactrim] Allergy Unknown Verified 12/31/19 12:22 vancomycin Allergy Rash/Hives Verified 12/31/19 12:22 Review of Systems ROS Statement: Those systems with pertinent positive or pertinent negative responses have been documented in the HPI. ROS Other: All systems not noted in ROS Statement are negative. Past Medical History Past Medical History: Diabetes Mellitus Additional Past Medical History / Comment(s): Cystic Fibrosis History of Any Multi-Drug Resistant Organisms: MRSA Date of last positivie culture/infection: 05/16/19 MDRO Source:: sputum Past Surgical History: No Surgical Hx Reported Additional Past Surgical History / Comment(s): feeding tube, port (removed) Past Anesthesia/Blood Transfusion Reactions: No Reported Reaction Past Psychological History: No Psychological Hx Reported Smoking Status: Never smoker Past Alcohol Use History: Rare Past Drug Use History: None Reported - Past Family History Father History Unknown: Yes Additional Family Medical History / Comment(s): States that he was adopted, but says that he thinks there isnt any family history on either side. Mother Family Medical History: No Reported History Additional Family Medical History / Comment(s): Pt is adopted but has had contact with natural mother and she is healthy. General Exam - General Exam Comments Initial Comments: General: The patient is awake and alert, in no distress Eye: +3 mm pupils are equal, round and reactive to light, extra-ocular movem ents are intact. No nystagmus. There is normal conjunctiva bilaterally. No signs of icterus. Ears, nose, mouth and throat: There are moist mucous membranes and no oral l esions. Neck: The neck is supple, there is no tenderness or JVD. No nuchal rigidity Cardiovascular: There is a regular rate and rhythm. No murmur, rub or gallop is appreciated. Respiratory: Lungs are clear to auscultation, respirations are non-labored, breath sounds are equal. No wheezes, stridor, rales, or rhonchi. Musculoskeletal: Normal ROM, no tenderness. Strength 5/5. Sensation intact. Pulses equal bilaterally 2+. Neurological: A&O x 3. CN II-XII intact, memory intact to immediately, intermediate and termite helper recall. Able to follow simple verbal. Able to name a common object (pen). High quality, labial (pa) and lingual (la) speech. Low quality posterior pharynx/larynx (ga) voice sounds. Able to express general knowledge. No hemineglect or inattention noted. Finger agnosia (-) and spatially oriented.Light touch and temperature sensation present over the face, chest, abdomen, back, UE bilaterally, and LE bilaterally. Able to localize point during point localization b/l and extinction. No visible bulk atrophy, hypertrophy, fasciculations, or myoclonus of the UE or LE b/l. Full PROM in UE and LE b/l. Bilateral muscle strength 5/5 for the following muscles: deltoid, biceps, triceps, brachioradialis, wrist extensors/flexor, hip flexor, hip ab ductors/adductors, hamstrings, quadriceps, feet dorsiflexors/plantar flexors. Finger to nose, finger to the examiners finger, and heel to marshall coordinated and accurate b/l. Coordinated and even demonstration of hand flip, finger to thumb, and toe tap b/l. Gait is coordinated and even in stride with tandem. (-) pronator drift. No nuchal rigidity. (-) Brudzinskis and Kernig signs. Skin: Skin is warm and dry and no rashes or lesions are noted. Psychiatric: Cooperative, appropriate mood & affect, normal judgment. Limitations: no limitations Course Vital Signs 12/31/19 12/31/19 12/31/19 12:21 14:24 14:56 Temperature 98.3 F 98.2 F Pulse Rate 91 86 Respiratory 18 20 Rate Blood Pressure 123/82 106/72 O2 Sat by Pulse 97 97 Oximetry Medical Decision Making - Medical Decision Making 19-year-old male presented for headache patient is presents for this in the past. Patient denies sudden onset of this being the worse headache of his life. Patient is no focal neurological deficits no fevers or neck stiffness. We discussed imaging studies worse symptomatically treatment patient would like to go forth with only symptomatic treatment at this time. I did recommend patient have an outpatient MRI given increased frequency of headaches. She verbalizes understanding upon revealed evaluation patient's headache had resolved he appears well. Ptient discharged appearing well. Disposition Clinical Impression: Headache Disposition: HOME SELF-CARE Condition: Good Instructions (If sedation given, give patient instructions): Acute Headache (ED) Additional Instructions: Please use medication as discussed. Please follow-up with family doctor in the next 2 days-recommend MRI outpatient basis. Return for worsening symptoms. Please return to emergency room if the symptoms increase or worsen or for any other concerns. Is patient prescribed a controlled substance at d/c from ED?: No Referrals: None,Stated [Primary Care Provider] - 1-2 days Time of Disposition: 14:47
[2019-12-31] MEDS ORDERED: HYDROmorphone 0.5 MG/0.5 ML SYRINGE IVP STA (14:09)
[2019-12-31 14:26] VITALS: BP 106/72; PULSE 86; RESP 20
[2019-12-31 14:56] VITALS: TEMP 98.2
== END 2019-12-31 14:56 | disposition home or self-care (01) ==
LOC: EC 12:17
DX: R51 Headache (principal); R11.0 Nausea; E11.9 Type 2 diabetes mellitus without complications; Z79.4 Long term (current) use of insulin; Z88.2 Allergy status to sulfonamides; Z88.1 Allergy status to other antibiotic agents; Z86.14 Personal history of Methicillin resistant Staphylococcus aureus infection
CPT/HCPCS: 96374; 96375 ×2; 96361; 99284; J2405; J1885; J1170

== ENCOUNTER 2020-03-12 08:12 | Emergency (ER) | payer MEDICARE, OTHER ==
[2020-03-12] MEDS ORDERED: KETOROLAC 30 MG/ML 1 ML VIAL IVP STA (08:25)
[2020-03-12] MEDS ORDERED: SODIUM CHLORIDE 0.9% 1,000 ML IV STA (08:25)
[2020-03-12] MEDS ORDERED: ONDANSETRON 4 MG/2 ML VIAL IVP STA (08:25)
--- NOTE | 2020-03-12 08:27 | ED ---
General Adult HPI - General Chief complaint: Headache Stated complaint: migraine and nausea Time Seen by Provider: 03/12/20 08:17 Source: patient, RN notes reviewed, old records reviewed Mode of arrival: ambulatory Limitations: no limitations - History of Present Illness Initial comments: 19-year-old male history of migraine headache presenting for evaluation of typical headache. Patient states he woke this morning with a typical frontal migraine with some associated nausea. No vomiting. He states he gets several headaches weekly and takes extra strength Tylenol. He occasionally has to come to the emergency department for symptom relief. This is normal for this patient. He has past medical history of cystic fibrosis, as well as diabetes an d is currently on insulin. He states his sugars have been quite good lately. He has had no issues with his breathing for at least one year. Patient has been eating and drinking normally with no vomiting. No fever. No chest pain or abdominal pain. No focal numbness or weakness. - Related Data Home Medications Medication Instructions Recorded Confirmed Lipase/Protease/Amylase [Joselo Smith 120,000 units PO QID 06/15/15 03/12/20 24,000 Units Capsule] Acetaminophen Tab [Tylenol Tab] 1,000 mg PO Q6HR PRN 12/11/19 03/12/20 Elexacaftor/Tezacaftor/Ivacaft 1 tab PO HS 12/11/19 03/12/20 [Trikafta 100/50/75 mg-150 mg] Elexacaftor/Tezacaftor/Ivacaft 2 tab PO DAILY 12/11/19 03/12/20 [Trikafta 100/50/75 mg-150 mg] Insulin Glargine,Hum.rec.anlog 50 unit SQ HS 12/11/19 03/12/20 [Lantus Solostar] Insulin Lispro [Admelog] See Protocol SQ AC-TID 12/11/19 03/12/20 Insuln Asp Prt/Insulin Aspart 30 unit SQ HS 12/11/19 03/12/20 [NovoLOG MIX 70-30 VIAL] Allergies Allergy/AdvReac Type Severity Reaction Status Date / Time sulfamethoxazole Allergy Unknown Verified 03/12/20 08:16 [From Bactrim] trimethoprim [From Bactrim] Allergy Unknown Verified 03/12/20 08:16 vancomycin Allergy Rash/Hives Verified 03/12/20 08:16 Review of Systems ROS Statement: Those systems with pertinent positive or pertinent negative responses have been documented in the HPI. ROS Other: All systems not noted in ROS Statement are negative. Past Medical History Past Medical History: Diabetes Mellitus Additional Past Medical History / Comment(s): Cystic Fibrosis History of Any Multi-Drug Resistant Organisms: MRSA Date of last positivie culture/infection: 05/16/19 MDRO Source:: sputum Past Surgical History: No Surgical Hx Reported Additional Past Surgical History / Comment(s): feeding tube, port (removed) Past Anesthesia/Blood Transfusion Reactions: No Reported Reaction Past Psychological History: No Psychological Hx Reported Smoking Status: Never smoker Past Alcohol Use History: Rare Past Drug Use History: None Reported - Past Family History Father History Unknown: Yes Additional Family Medical History / Comment(s): States that he was adopted, but says that he thinks there isnt any family history on either side. Mother Family Medical History: No Reported History Additional Family Medical History / Comment(s): Pt is adopted but has had contact with natural mother and she is healthy. General Exam Limitations: no limitations General appearance: alert, in no apparent distress Head exam: Present: atraumatic, normocephalic Eye exam: Present: normal appearance, PERRL, EOMI ENT exam: Present: normal exam Neck exam: Present: normal inspection. Absent: tenderness, meningismus Respiratory exam: Present: normal lung sounds bilaterally. Absent: respiratory distress, wheezes Cardiovascular Exam: Present: regular rate, normal rhythm GI/Abdominal exam: Present: soft. Absent: distended, tenderness, guarding Extremities exam: Present: normal inspection, normal capillary refill. Absent: pedal edema Neurological exam: Present: alert, oriented X3, CN II-XII intact. Absent: motor sensory deficit Psychiatric exam: Present: normal affect, normal mood Skin exam: Present: warm, dry, intact. Absent: cyanosis, diaphoretic Course Vital Signs 03/12/20 08:14 Temperature 97.9 F Pulse Rate 86 Respiratory 18 Rate Blood Pressure 111/75 O2 Sat by Pulse 100 Oximetry Medical Decision Making - Medical Decision Making 19-year-old male presenting with headache, typical of her normal migraine headache. Given IV fluid, Toradol, Zofran, feeling much better on reevaluation. He has a nonfocal neurologic exam with stable vitals. He has a normal CBC, mild electrolyte abnormalities with a CO2 of 31 likely secondary to dehydration. Patient has good outpatient follow-up he will monitor symptoms at home and return with any worsening or changing symptoms. - Lab Data Result diagrams: 03/12/20 08:25 03/12/20 08:25 Lab Results 03/12/20 03/12/20 Range/Units 08:25 08:25 WBC 5.6 (3.8-10.6) k/uL RBC 5.48 (4.30-5.90) m/uL Hgb 15.4 (13.0-17.5) gm/dL Hct 47.0 (39.0-53.0) % MCV 85.8 (80.0-100.0) fL MCH 28.1 (25.0-35.0) pg MCHC 32.8 (31.0-37.0) g/dL RDW 13.1 (11.5-15.5) % Plt Count 475 H (150-450) k/uL Neutrophils % 54 % Lymphocytes % 36 % Monocytes % 4 % Eosinophils % 2 % Basophils % 1 % Neutrophils # 3.1 (1.3-7.7) k/uL Lymphocytes # 2.0 (1.0-4.8) k/uL Monocytes # 0.3 (0-1.0) k/uL Eosinophils # 0.1 (0-0.7) k/uL Basophils # 0.0 (0-0.2) k/uL Sodium 138 (137-145) mmol/L Potassium 3.7 (3.5-5.1) mmol/L Chloride 96 L (98-107) mmol/L Carbon Dioxide 31 H (22-30) mmol/L Anion Gap 11 mmol/L BUN 9 (9-20) mg/dL Creatinine 0.55 L (0.66-1.25) mg/dL Est GFR (CKD-EPI)AfAm >90 (>60 ml/min/1.73 sqM) Est GFR (CKD-EPI)NonAf >90 (>60 ml/min/1.73 sqM) Glucose 107 H (74-99) mg/dL Calcium 10.4 H (8.4-10.2) mg/dL Total Bilirubin 0.8 (0.2-1.3) mg/dL AST 40 (17-59) U/L ALT 38 (4-49) U/L Alkaline Phosphatase 118 (38-126) U/L Total Protein 7.7 (6.3-8.2) g/dL Albumin 4.9 (3.5-5.0) g/dL Disposition Clinical Impression: Dehydration, Headache Disposition: HOME SELF-CARE Condition: Good Instructions (If sedation given, give patient instructions): Acute Headache (ED) Is patient prescribed a controlled substance at d/c from ED?: No Referrals: None,Stated [Primary Care Provider] - 1-2 days Jarrod Jackson [STAFF PHYSICIAN] - 1-2 days Time of Disposition: 10:03
[2020-03-12 09:03] LABS: Basophils % (A) 1 %; Eosinophils # (A) 0.1 k/uL (0-0.7); Eosinophils % (A) 2 %; HGB 15.4 gm/dL (13.0-17.5); Lymphocytes % (A) 36 %; MCH 28.1 pg (25.0-35.0); MCHC 32.8 g/dL (31.0-37.0); MCV 85.8 fL (80.0-100.0); Monocytes # (A) 0.3 k/uL (0-1.0); Monocytes % (A) 4 %; Neutrophils # (A) 3.1 k/uL (1.3-7.7); Neutrophils % (A) 54 %; Platelet Count 475 k/uL (150-450); RBC 5.48 m/uL (4.30-5.90); RDW 13.1 % (11.5-15.5); WBC 5.6 k/uL (3.8-10.6)
[2020-03-12 09:17] LABS: ALT 38 U/L (4-49); AST 40 U/L (17-59); African American GFR (CKD) >90 (>60 ml/min/1.73 sqM); Albumin 4.9 g/dL (3.5-5.0); Alkaline Phosphatase 118 U/L (38-126); Anion Gap 11 mmol/L; Blood Urea Nitrogen 9 mg/dL (9-20); Calcium 10.4 mg/dL (8.4-10.2); Carbon Dioxide 31 mmol/L (22-30); Chloride 96 mmol/L (98-107); Glucose 107 mg/dL (74-99); Non-African American GFR(CKD) >90 (>60 ml/min/1.73 sqM); Potassium 3.7 mmol/L (3.5-5.1); Sodium 138 mmol/L (137-145); Total Bilirubin 0.8 mg/dL (0.2-1.3); Total Protein 7.7 g/dL (6.3-8.2)
[2020-03-12 10:41] VITALS: BP 103/73; PULSE 71; RESP 18; TEMP 97.9
== END 2020-03-12 10:19 | disposition home or self-care (01) ==
LOC: EC 08:12
DX: E86.0 Dehydration (principal); G43.909 Migraine, unspecified, not intractable, without status migrainosus; E87.8 Other disorders of electrolyte and fluid balance, not elsewhere classified; E11.9 Type 2 diabetes mellitus without complications; E84.9 Cystic fibrosis, unspecified; Z79.899 Other long term (current) drug therapy; Z79.4 Long term (current) use of insulin; Z88.1 Allergy status to other antibiotic agents; Z88.2 Allergy status to sulfonamides; Z86.14 Personal history of Methicillin resistant Staphylococcus aureus infection
CPT/HCPCS: 36415; 80053; 85025; 99284; 96374; 96375; 96361; J2405; J1885

== ENCOUNTER 2020-03-27 15:45 | Emergency (ER) | payer MEDICARE, OTHER ==
[2020-03-27 15:55] VITALS: RESP 18
[2020-03-27] MEDS ORDERED: KETOROLAC 30 MG/ML 1 ML VIAL IVP STA (16:14)
[2020-03-27] MEDS ORDERED: SODIUM CHLORIDE 0.9% 1,000 ML IV STA (16:14)
[2020-03-27] MEDS ORDERED: METOCLOPRAMIDE 5 MG/ML 2 ML VIAL IVP STA (16:14)
[2020-03-27] MEDS ORDERED: diphenhydrAMINE 50 MG/ML 1 ML VIAL IVP STA (16:15)
--- NOTE | 2020-03-27 16:23 | ED ---
General Adult HPI - General Chief complaint: Headache Stated complaint: headache Time Seen by Provider: 03/27/20 15:57 Source: patient, RN notes reviewed Mode of arrival: ambulatory Limitations: no limitations - History of Present Illness Initial comments: 19-year-old male with a past medical history of cystic fibrosis, IDDM type I, migraines presents to the emergency room for a chief complaint of migraine headache. Patient states this started this morning. Patient states it started gradually and is worsening throughout the afternoon. He denies any thunderclap or sudden onset headache. Patient's pain is mostly in his frontal region area patient states this headache feels exactly consistent to previous migraines. Patient states there was trace Tylenol at home but it does not seem to help. Patient states that he is trying to follow-up with his doctor and has an appointment in June but cannot be seen until that time. Patient admits to nausea denies vomiting. Admits to photophobia as well.Patient has no other complaints at this time including shortness of breath, chest pain, abdominal pain, vomiting, or visual changes. - Related Data Home Medications Medication Instructions Recorded Confirmed Lipase/Protease/Amylase [Joselo Dr 120,000 units PO QID 06/15/15 03/12/20 24,000 Units Capsule] Acetaminophen Tab [Tylenol Tab] 1,000 mg PO Q6HR PRN 12/11/19 03/12/20 Elexacaftor/Tezacaftor/Ivacaft 1 tab PO HS 12/11/19 03/12/20 [Trikafta 100/50/75 mg-150 mg] Elexacaftor/Tezacaftor/Ivacaft 2 tab PO DAILY 12/11/19 03/12/20 [Trikafta 100/50/75 mg-150 mg] Insulin Glargine,Hum.rec.anlog 50 unit SQ HS 12/11/19 03/12/20 [Lantus Solostar] Insulin Lispro [Admelog] See Protocol SQ AC-TID 12/11/19 03/12/20 Insuln Asp Prt/Insulin Aspart 30 unit SQ HS 12/11/19 03/12/20 [NovoLOG MIX 70-30 VIAL] Allergies Allergy/AdvReac Type Severity Reaction Status Date / Time sulfamethoxazole Allergy Unknown Verified 03/27/20 15:55 [From Bactrim] trimethoprim [From Bactrim] Allergy Unknown Verified 03/27/20 15:55 vancomycin Allergy Rash/Hives Verified 03/27/20 15:55 Review of Systems ROS Statement: Those systems with pertinent positive or pertinent negative responses have been documented in the HPI. ROS Other: All systems not noted in ROS Statement are negative. Past Medical History Past Medical History: Diabetes Mellitus Additional Past Medical History / Comment(s): Cystic Fibrosis History of Any Multi-Drug Resistant Organisms: MRSA Date of last positivie culture/infection: 05/16/19 MDRO Source:: sputum Past Surgical History: No Surgical Hx Reported Additional Past Surgical History / Comment(s): feeding tube, port (removed) Past Anesthesia/Blood Transfusion Reactions: No Reported Reaction Past Psychological History: No Psychological Hx Reported Smoking Status: Never smoker Past Alcohol Use History: Rare Past Drug Use History: None Reported - Past Family History Father History Unknown: Yes Additional Family Medical History / Comment(s): States that he was adopted, but says that he thinks there isnt any family history on either side. Mother Family Medical History: No Reported History Additional Family Medical History / Comment(s): Pt is adopted but has had contact with natural mother and she is healthy. General Exam Limitations: no limitations General appearance: alert, in no apparent distress Head exam: Present: atraumatic, normocephalic, normal inspection Eye exam: Present: normal appearance, PERRL, EOMI. Absent: scleral icterus, conjunctival injection, periorbital swelling ENT exam: Present: normal exam, mucous membranes moist Neck exam: Present: normal inspection, full ROM. Absent: tenderness, meningismus, lymphadenopathy Respiratory exam: Present: normal lung sounds bilaterally. Absent: respiratory distress, wheezes, rales, rhonchi, stridor Cardiovascular Exam: Present: regular rate, normal rhythm, normal heart sounds. Absent: systolic murmur, diastolic murmur, rubs, gallop, clicks GI/Abdominal exam: Present: soft, normal bowel sounds. Absent: distended, tenderness, guarding, rebound, rigid Neurological exam: Present: alert, oriented X3, CN II-XII intact, normal gait, other (GCS 15) Course Vital Signs 03/27/20 15:53 Temperature 98.3 F Pulse Rate 90 Respiratory 18 Rate Blood Pressure 116/70 O2 Sat by Pulse 97 Oximetry Medical Decision Making - Medical Decision Making Patient is well-appearing. Symptoms are consistent with previous migraine headaches. No focal neurologic deficits on exam. Patient was given migraine cocktail and had significant improvement in pain. Patient will be discharged home to follow up with primary care. I did stress this and he has an appointment in June. He will return here for any worsening symptoms. - Lab Data Result diagrams: 03/27/20 16:40 03/27/20 16:40 Lab Results 03/27/20 03/27/20 Range/Units 16:40 16:40 WBC 8.0 (3.8-10.6) k/uL RBC 4.72 (4.30-5.90) m/uL Hgb 13.4 (13.0-17.5) gm/dL Hct 41.4 (39.0-53.0) % MCV 87.8 (80.0-100.0) fL MCH 28.3 (25.0-35.0) pg MCHC 32.3 (31.0-37.0) g/dL RDW 13.5 (11.5-15.5) % Plt Count 352 (150-450) k/uL Neutrophils % 76 % Lymphocytes % 20 % Monocytes % 2 % Eosinophils % 1 % Basophils % 0 % Neutrophils # 6.1 (1.3-7.7) k/uL Lymphocytes # 1.6 (1.0-4.8) k/uL Monocytes # 0.1 (0-1.0) k/uL Eosinophils # 0.1 (0-0.7) k/uL Basophils # 0.0 (0-0.2) k/uL Sodium 136 L (137-145) mmol/L Potassium 4.2 (3.5-5.1) mmol/L Chloride 104 (98-107) mmol/L Carbon Dioxide 25 (22-30) mmol/L Anion Gap 7 mmol/L BUN 4 L (9-20) mg/dL Creatinine 0.48 L (0.66-1.25) mg/dL Est GFR (CKD-EPI)AfAm >90 (>60 ml/min/1.73 sqM) Est GFR (CKD-EPI)NonAf >90 (>60 ml/min/1.73 sqM) Glucose 120 H (74-99) mg/dL Calcium 9.3 (8.4-10.2) mg/dL Total Bilirubin 0.5 (0.2-1.3) mg/dL AST 31 (17-59) U/L ALT 26 (4-49) U/L Alkaline Phosphatase 76 (38-126) U/L Total Protein 6.2 L (6.3-8.2) g/dL Albumin 3.8 (3.5-5.0) g/dL Disposition Clinical Impression: Headache Disposition: HOME SELF-CARE Condition: Good Instructions (If sedation given, give patient instructions): Acute Headache (ED) Additional Instructions: Please follow-up with your primary care provider as soon as possible for these consistent headaches. Return to the emergency room for any worsening symptoms or fevers. Is patient prescribed a controlled substance at d/c from ED?: No Referrals: Kate Palafox MD [REFERRING] - 1-2 days Time of Disposition: 17:26
[2020-03-27 16:45] LABS: Basophils % (A) 0 %; Eosinophils # (A) 0.1 k/uL (0-0.7); Eosinophils % (A) 1 %; HCT 41.4 % (39.0-53.0); HGB 13.4 gm/dL (13.0-17.5); Lymphocytes # (A) 1.6 k/uL (1.0-4.8); Lymphocytes % (A) 20 %; MCH 28.3 pg (25.0-35.0); MCHC 32.3 g/dL (31.0-37.0); MCV 87.8 fL (80.0-100.0); Monocytes # (A) 0.1 k/uL (0-1.0); Monocytes % (A) 2 %; Neutrophils # (A) 6.1 k/uL (1.3-7.7); Neutrophils % (A) 76 %; Platelet Count 352 k/uL (150-450); RBC 4.72 m/uL (4.30-5.90); RDW 13.5 % (11.5-15.5)
[2020-03-27 16:59] LABS: ALT 26 U/L (4-49); AST 31 U/L (17-59); African American GFR (CKD) >90 (>60 ml/min/1.73 sqM); Albumin 3.8 g/dL (3.5-5.0); Alkaline Phosphatase 76 U/L (38-126); Anion Gap 7 mmol/L; Blood Urea Nitrogen 4 mg/dL (9-20); Calcium 9.3 mg/dL (8.4-10.2); Carbon Dioxide 25 mmol/L (22-30); Chloride 104 mmol/L (98-107); Glucose 120 mg/dL (74-99); Non-African American GFR(CKD) >90 (>60 ml/min/1.73 sqM); Potassium 4.2 mmol/L (3.5-5.1); Sodium 136 mmol/L (137-145); Total Bilirubin 0.5 mg/dL (0.2-1.3); Total Protein 6.2 g/dL (6.3-8.2)
[2020-03-27 17:30] VITALS: BP 118/76; PULSE 82; TEMP 98
== END 2020-03-27 17:37 | disposition home or self-care (01) ==
LOC: EC 15:45
DX: R51 Headache (principal); R11.0 Nausea; H53.149 Visual discomfort, unspecified; E10.9 Type 1 diabetes mellitus without complications; E84.9 Cystic fibrosis, unspecified; Z79.899 Other long term (current) drug therapy; Z79.4 Long term (current) use of insulin; Z88.1 Allergy status to other antibiotic agents; Z88.2 Allergy status to sulfonamides; Z86.69 Personal history of other diseases of the nervous system and sense organs; Z86.14 Personal history of Methicillin resistant Staphylococcus aureus infection
CPT/HCPCS: 36415; 80053; 85025; 99283; 96374; 96375 ×2; 96361; J1200; J2765; J1885

== ENCOUNTER 2020-06-15 14:23 | Emergency (ER) | payer MEDICARE, OTHER ==
[2020-06-15 14:30] LABS: Glucose,Whole Blood 140 mg/dL (75-99)
[2020-06-15 14:34] VITALS: RESP 18
[2020-06-15 14:59] LABS: Basophils % (A) 0 %; Eosinophils # (A) 0.1 k/uL (0-0.7); Eosinophils % (A) 1 %; HCT 47.4 % (39.0-53.0); HGB 15.3 gm/dL (13.0-17.5); Lymphocytes # (A) 1.9 k/uL (1.0-4.8); Lymphocytes % (A) 23 %; MCH 28.7 pg (25.0-35.0); MCHC 32.3 g/dL (31.0-37.0); MCV 88.9 fL (80.0-100.0); Mean Platelet Volume 7.1; Monocytes # (A) 0.3 k/uL (0-1.0); Monocytes % (A) 4 %; Neutrophils # (A) 5.7 k/uL (1.3-7.7); Neutrophils % (A) 71 %; Platelet Count 410 k/uL (150-450); RBC 5.33 m/uL (4.30-5.90); RDW 13.7 % (11.5-15.5); WBC 8.1 k/uL (3.8-10.6)
--- NOTE | 2020-06-15 15:02 | XR ---
EXAMINATION TYPE: XR chest 2V DATE OF EXAM: 06/15/2020 COMPARISON: 05/18/2019 HISTORY: Chest pain TECHNIQUE: Frontal and lateral views of the chest are obtained. FINDINGS: Right suprahilar infiltrate persists and appears essentially unchanged. Additional areas of reticulon odular infiltrate seen previously have improved. No evidence for pneumothorax. No pleural effusion. The cardiac silhouette size is within normal limits. The osseous structures are grossly intact. IMPRESSION: 1. Right suprahilar infiltrate persists and appears essentially unchanged. Additional areas of retic ulonodular infiltrate seen previously have improved.
[2020-06-15] MEDS ORDERED: KETOROLAC 15 MG/ML 1 ML VIAL IVP STA (15:08)
[2020-06-15 15:09] LABS: ALT 17 U/L (4-49); AST 27 U/L (17-59); African American GFR (CKD) >90 (>60 ml/min/1.73 sqM); Albumin 4.1 g/dL (3.5-5.0); Alkaline Phosphatase 71 U/L (38-126); Anion Gap 9 mmol/L; Blood Urea Nitrogen 11 mg/dL (9-20); Calcium 9.2 mg/dL (8.4-10.2); Carbon Dioxide 26 mmol/L (22-30); Chloride 102 mmol/L (98-107); Glucose 130 mg/dL (74-99); Non-African American GFR(CKD) >90 (>60 ml/min/1.73 sqM); Sodium 137 mmol/L (137-145); Total Bilirubin 0.5 mg/dL (0.2-1.3); Total Protein 6.8 g/dL (6.3-8.2)
[2020-06-15 15:11] LABS: Potassium 4.8 mmol/L (3.5-5.1)
--- NOTE | 2020-06-15 15:18 | ED ---
General Adult HPI - General Chief complaint: Neuro Symptoms/Deficit Stated complaint: Altered Status Time Seen by Provider: 06/15/20 14:25 Source: patient, EMS, RN notes reviewed Mode of arrival: EMS Limitations: no limitations - History of Present Illness Initial comments: This a 20-year-old male presents emergency department via EMS for hypoglycemic e vent. Patient was very lethargic, not responsive upon arrival and found by girlfriend. Patient was given half amp of dextrose in which he immediately became arousable, awake alert and oriented 4. Patient has no major complaints this time he states that he had a cough that started approximately week ago was seen by his assembly riveter at [facility] who ordered some antibiotics. Patient states that he is waiting difficulties. He denies any fevers chills no chest pain no current drainage breath does have a history of cystic fibrosis. Patient is known insulin-dependent diabetic. Patient offers no other complaints. He states he did not eat any food this morning which also led to his hyperglycemic events - Related Data Home Medications Medication Instructions Recorded Confirmed Lipase/Protease/Amylase [Joselo Smith 120,000 units PO QID 06/15/15 03/12/20 24,000 Units Capsule] Acetaminophen Tab [Tylenol Tab] 1,000 mg PO Q6HR PRN 12/11/19 03/12/20 Elexacaftor/Tezacaftor/Ivacaft 1 tab PO HS 12/11/19 03/12/20 [Trikafta 100/50/75 mg-150 mg] Elexacaftor/Tezacaftor/Ivacaft 2 tab PO DAILY 12/11/19 03/12/20 [Trikafta 100/50/75 mg-150 mg] Insulin Glargine,Hum.rec.anlog 50 unit SQ HS 12/11/19 03/12/20 [Lantus Solostar] Insulin Lispro [Admelog] See Protocol SQ AC-TID 12/11/19 03/12/20 Insuln Asp Prt/Insulin Aspart 30 unit SQ HS 12/11/19 03/12/20 [NovoLOG MIX 70-30 VIAL] Allergies Allergy/AdvReac Type Severity Reaction Status Date / Time sulfamethoxazole Allergy Unknown Verified 06/15/20 14:34 [From Bactrim] trimethoprim [From Bactrim] Allergy Unknown Verified 06/15/20 14:34 vancomycin Allergy Rash/Hives Verified 06/15/20 14:34 Review of Systems ROS Statement: Those systems with pertinent positive or pertinent negative responses have been documented in the HPI. ROS Other: All systems not noted in ROS Statement are negative. Past Medical History Past Medical History: Diabetes Mellitus Additional Past Medical History / Comment(s): Cystic Fibrosis History of Any Multi-Drug Resistant Organisms: MRSA Date of last positivie culture/infection: 05/16/19 MDRO Source:: sputum Past Surgical History: No Surgical Hx Reported Additional Past Surgical History / Comment(s): feeding tube, port (removed) Past Anesthesia/Blood Transfusion Reactions: No Reported Reaction Past Psychological History: No Psychological Hx Reported Smoking Status: Never smoker Past Alcohol Use History: Rare Past Drug Use History: None Reported - Past Family History Father History Unknown: Yes Additional Family Medical History / Comment(s): States that he was adopted, but says that he thinks there isnt any family history on either side. Mother Family Medical History: No Reported History Additional Family Medical History / Comment(s): Pt is adopted but has had co ntact with natural mother and she is healthy. General Exam Limitations: no limitations General appearance: alert, in no apparent distress Head exam: Present: atraumatic, normocephalic, normal inspection Eye exam: Present: normal appearance, PERRL, EOMI. Absent: scleral icterus, conjunctival injection, periorbital swelling ENT exam: Present: normal exam, mucous membranes moist Neck exam: Present: normal inspection. Absent: tenderness, meningismus, lymphadenopathy Respiratory exam: Present: normal lung sounds bilaterally. Absent: respiratory distress, wheezes, rales, rhonchi, stridor Cardiovascular Exam: Present: regular rate, normal rhythm, normal heart sounds. Absent: systolic murmur, diastolic murmur, rubs, gallop, clicks GI/Abdominal exam: Present: soft, normal bowel sounds. Absent: distended, tenderness, guarding, rebound, rigid Neurological exam: Present: alert, oriented X3, CN II-XII intact, reflexes normal. Absent: motor sensory deficit Course Vital Signs 06/15/20 14:26 Temperature 97.6 F Pulse Rate 98 Respiratory 18 Rate Blood Pressure 138/81 O2 Sat by Pulse 100 Oximetry Medical Decision Making - Medical Decision Making Patient has no specific complaints. Patient's awake alert and orientated. Patient's x-ray shows improving area prior infiltrate. Patient was recently diagnosed with rest or infection was placed on antibiotics. Patient will take his antibiotics and follow-up with his assembly riveter return for any worsening symptoms. - Lab Data Result diagrams: 06/15/20 14:35 06/15/20 14:35 Lab Results 06/15/20 06/15/20 06/15/20 Range/Units 14:28 14:35 14:35 WBC 8.1 (3.8-10.6) k/uL RBC 5.33 (4.30-5.90) m/uL Hgb 15.3 (13.0-17.5) gm/dL Hct 47.4 (39.0-53.0) % MCV 88.9 (80.0-100.0) fL MCH 28.7 (25.0-35.0) pg MCHC 32.3 (31.0-37.0) g/dL RDW 13.7 (11.5-15.5) % Plt Count 410 (150-450) k/uL Neutrophils % 71 % Lymphocytes % 23 % Monocytes % 4 % Eosinophils % 1 % Basophils % 0 % Neutrophils # 5.7 (1.3-7.7) k/uL Lymphocytes # 1.9 (1.0-4.8) k/uL Monocytes # 0.3 (0-1.0) k/uL Eosinophils # 0.1 (0-0.7) k/uL Basophils # 0.0 (0-0.2) k/uL Sodium 137 (137-145) mmol/L Potassium 4.8 (3.5-5.1) mmol/L Chloride 102 (98-107) mmol/L Carbon Dioxide 26 (22-30) mmol/L Anion Gap 9 mmol/L BUN 11 (9-20) mg/dL Creatinine 0.58 L (0.66-1.25) mg/dL Est GFR (CKD-EPI)AfAm >90 (>60 ml/min/1.73 sqM) Est GFR (CKD-EPI)NonAf >90 (>60 ml/min/1.73 sqM) Glucose 130 H (74-99) mg/dL POC Glucose (mg/dL) 140 H (75-99) mg/dL POC Glu Librarian Helper Hayley Ventura Calcium 9.2 (8.4-10.2) mg/dL Total Bilirubin 0.5 (0.2-1.3) mg/dL AST 27 (17-59) U/L ALT 17 (4-49) U/L Alkaline Phosphatase 71 (38-126) U/L Total Protein 6.8 (6.3-8.2) g/dL Albumin 4.1 (3.5-5.0) g/dL Disposition Clinical Impression: Hypoglycemic event due to diabetes Disposition: HOME SELF-CARE Condition: Stable Instructions (If sedation given, give patient instructions): Hypoglycemia in a Person with Diabetes (ED) Additional Instructions: Please return to the Emergency Department if symptoms worsen or any other concerns. Is patient prescribed a controlled substance at d/c from ED?: No Referrals: None,Stated [Primary Care Provider] - 1-2 days Time of Disposition: 15:18
[2020-06-15] MEDS ORDERED: cefTRIAXone IN SWFI 1,000 MG/10 ML SYRINGE IVP STA (15:19)
[2020-06-15] MEDS ORDERED: diphenhydrAMINE 50 MG/ML 1 ML VIAL IM STA (15:42)
[2020-06-15] MEDS ORDERED: PROMETHAZINE INJ 25 MG/ML 1 ML VIAL IM STA (15:42)
[2020-06-15 15:47] VITALS: BP 118/89; PULSE 90; TEMP 99.6
== END 2020-06-15 15:56 | disposition home or self-care (01) ==
LOC: EC 14:23
DX: E11.649 Type 2 diabetes mellitus with hypoglycemia without coma (principal); R91.8 Other nonspecific abnormal finding of lung field; E84.9 Cystic fibrosis, unspecified; Z79.4 Long term (current) use of insulin; Z88.1 Allergy status to other antibiotic agents; Z88.2 Allergy status to sulfonamides; Z86.14 Personal history of Methicillin resistant Staphylococcus aureus infection
CPT/HCPCS: 36415; 80053; 85025; 71046; 99285; 96374; 96375; 96372 ×2; J1200; J2550; J0696; J1885

== ENCOUNTER 2020-07-12 13:13 | Emergency (ER) | payer MEDICARE, OTHER ==
[2020-07-12 13:23] LABS: Glucose,Whole Blood 187 mg/dL (75-99)
[2020-07-12 13:28] VITALS: TEMP 97.7
[2020-07-12] MEDS ORDERED: SODIUM CHLORIDE 0.9% 500 ML 500 ML IV STA (13:34)
--- NOTE | 2020-07-12 13:40 | ED ---
General Adult HPI - General Chief complaint: Recheck/Abnormal Lab/Rx Stated complaint: low blood sugar room 18 Time Seen by Provider: 07/12/20 13:26 Source: patient, EMS, RN notes reviewed, old records reviewed Mode of arrival: EMS Limitations: no limitations - History of Present Illness Initial comments: 20-year-old male history of cystic fibrosis and type 1 diabetes presenting for evaluation of suspected hypoglycemia. He was found by his girlfriend whom he lives with in his had, he was not alert, uncertain if the patient was diaphoretic. There is no reported vomiting. His girlfriend administered a glucagon injection and the patient became more alert. He had a similar episode several weeks ago which was attributed to hypoglycemia. He has no history of seizure disorder. He is awake and alert time my evaluation with normal blood sugar. No focal numbness or weakness. No significant headache. No nausea vomiting. No chest pain or dyspnea. 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 - Related Data Home Medications Medication Instructions Recorded Confirmed Lipase/Protease/Amylase [Creon Dr 120,000 units PO QID 06/15/15 03/12/20 24,000 Units Capsule] Acetaminophen Tab [Tylenol Tab] 1,000 mg PO Q6HR PRN 12/11/19 03/12/20 Elexacaftor/Tezacaftor/Ivacaft 1 tab PO HS 12/11/19 03/12/20 [Trikafta 100/50/75 mg-150 mg] Elexacaftor/Tezacaftor/Ivacaft 2 tab PO DAILY 12/11/19 03/12/20 [Trikafta 100/50/75 mg-150 mg] Insulin Glargine,Hum.rec.anlog 50 unit SQ HS 12/11/19 03/12/20 [Lantus Solostar] Insulin Lispro [Admelog] See Protocol SQ AC-TID 12/11/19 03/12/20 Insuln Asp Prt/Insulin Aspart 30 unit SQ HS 12/11/19 03/12/20 [NovoLOG MIX 70-30 VIAL] Previous Rx's Medication Instructions Recorded Azithromycin [Zithromax Z-pack (6 0 mg PO DIRECTED #1 pack 06/15/20 tabs)] Allergies Allergy/AdvReac Type Severity Reaction Status Date / Time sulfamethoxazole Allergy Unknown Verified 07/12/20 14:09 [From Bactrim] trimethoprim [From Bactrim] Allergy Unknown Verified 07/12/20 14:09 vancomycin Allergy Rash/Hives Verified 07/12/20 14:09 Review of Systems ROS Statement: Those systems with pertinent positive or pertinent negative responses have been documented in the HPI. ROS Other: All systems not noted in ROS Statement are negative. Past Medical History Past Medical History: Diabetes Mellitus Additional Past Medical History / Comment(s): Cystic Fibrosis History of Any Multi-Drug Resistant Organisms: MRSA Date of last positivie culture/infection: 05/16/19 MDRO Source:: sputum Past Surgical History: No Surgical Hx Reported Additional Past Surgical History / Comment(s): feeding tube, port (removed) Past Anesthesia/Blood Transfusion Reactions: No Reported Reaction Past Psychological History: No Psychological Hx Reported Smoking Status: Never smoker Past Alcohol Use History: Rare Past Drug Use History: None Reported - Past Family History Father History Unknown: Yes Additional Family Medical History / Comment(s): States that he was adopted, but says that he thinks there isnt any family history on either side. Mother Family Medical History: No Reported History Additional Family Medical History / Comment(s): Pt is adopted but has had contact with natural mother and she is healthy. General Exam Limitations: no limitations General appearance: alert, in no apparent distress Head exam: Present: atraumatic, normocephalic Eye exam: Present: normal appearance, PERRL ENT exam: Present: normal exam Neck exam: Present: normal inspection. Absent: tenderness, meningismus Respiratory exam: Present: normal lung sounds bilaterally. Absent: respiratory distress, wheezes Cardiovascular Exam: Present: regular rate. Absent: normal rhythm, bradycardia GI/Abdominal exam: Present: soft. Absent: distended, tenderness, guarding Extremities exam: Present: normal inspection, normal capillary refill. Absent: pedal edema Neurological exam: Present: alert, oriented X3, CN II-XII intact. Absent: motor sensory deficit Psychiatric exam: Present: normal affect, normal mood Skin exam: Present: warm, dry, intact. Absent: cyanosis, diaphoretic Course Vital Signs 07/12/20 13:24 Temperature 97.7 F Pulse Rate 97 Respiratory 14 Rate Blood Pressure 111/77 O2 Sat by Pulse 95 Oximetry EKG Findings - EKG Comments: EKG Findings:: EKG: Normal sinus rhythm no ST segment elevation, rate of 97, TN interval 152, QRS duration 92, QTC 434 Medical Decision Making - Medical Decision Making 20-year-old male presenting with altered mental status, behavior, suspecting hypoglycemia as this did resolve with dextrose and glucagon. Patient alert and oriented with stable vitals. He has normal CBC, CMP showing normal electrolytes, normal kidney function, mildly elevated blood sugar. Head CT was performed as there was a question of seizure activity, this is negative for intracranial hemorrhage or mass effect. Patient remains stable in the emergency department. 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 I also will give the patient neurology follow-up regarding these repeated episodes. Patient stable for discharge. - Lab Data Result diagrams: 07/12/20 13:39 07/12/20 13:39 Lab Results 07/12/20 07/12/20 07/12/20 Range/Units 13:22 13:39 13:39 WBC 4.9 (3.8-10.6) k/uL RBC 5.40 (4.30-5.90) m/uL Hgb 16.2 (13.0-17.5) gm/dL Hct 47.5 (39.0-53.0) % MCV 88.0 (80.0-100.0) fL MCH 30.1 (25.0-35.0) pg MCHC 34.2 (31.0-37.0) g/dL RDW 13.2 (11.5-15.5) % Plt Count 342 (150-450) k/uL Neutrophils % 48 % Lymphocytes % 42 % Monocytes % 5 % Eosinophils % 2 % Basophils % 1 % Neutrophils # 2.4 (1.3-7.7) k/uL Lymphocytes # 2.0 (1.0-4.8) k/uL Monocytes # 0.3 (0-1.0) k/uL Eosinophils # 0.1 (0-0.7) k/uL Basophils # 0.0 (0-0.2) k/uL Sodium 138 (137-145) mmol/L Potassium 3.8 (3.5-5.1) mmol/L Chloride 102 (98-107) mmol/L Carbon Dioxide 27 (22-30) mmol/L Anion Gap 9 mmol/L BUN 8 L (9-20) mg/dL Creatinine 0.61 L (0.66-1.25) mg/dL Est GFR (CKD-EPI)AfAm >90 (>60 ml/min/1.73 sqM) Est GFR (CKD-EPI)NonAf >90 (>60 ml/min/1.73 sqM) Glucose 181 H (74-99) mg/dL POC Glucose (mg/dL) 187 H (75-99) mg/dL POC Glu Engineering Faculty ID Plasma Lactic Acid Cristian (0.7-2.0) mmol/L Calcium 9.5 (8.4-10.2) mg/dL Magnesium 1.7 (1.6-2.3) mg/dL Total Bilirubin 0.8 (0.2-1.3) mg/dL AST 28 (17-59) U/L ALT 19 (4-49) U/L Alkaline Phosphatase 73 (38-126) U/L Total Protein 7.1 (6.3-8.2) g/dL Albumin 4.3 (3.5-5.0) g/dL 07/12/20 Range/Units 13:39 WBC (3.8-10.6) k/uL RBC (4.30-5.90) m/uL Hgb (13.0-17.5) gm/dL Hct (39.0-53.0) % MCV (80.0-100.0) fL MCH (25.0-35.0) pg MCHC (31.0-37.0) g/dL RDW (11.5-15.5) % Plt Count (150-450) k/uL Neutrophils % % Lymphocytes % % Monocytes % % Eosinophils % % Basophils % % Neutrophils # (1.3-7.7) k/uL Lymphocytes # (1.0-4.8) k/uL Monocytes # (0-1.0) k/uL Eosinophils # (0-0.7) k/uL Basophils # (0-0.2) k/uL Sodium (137-145) mmol/L Potassium (3.5-5.1) mmol/L Chloride (98-107) mmol/L Carbon Dioxide (22-30) mmol/L Anion Gap mmol/L BUN (9-20) mg/dL Creatinine (0.66-1.25) mg/dL Est GFR (CKD-EPI)AfAm (>60 ml/min/1.73 sqM) Est GFR (CKD-EPI)NonAf (>60 ml/min/1.73 sqM) Glucose (74-99) mg/dL POC Glucose (mg/dL) (75-99) mg/dL POC Glu Engineering Faculty ID Plasma Lactic Acid Cristian 1.7 (0.7-2.0) mmol/L Calcium (8.4-10.2) mg/dL Magnesium (1.6-2.3) mg/dL Total Bilirubin (0.2-1.3) mg/dL AST (17-59) U/L ALT (4-49) U/L Alkaline Phosphatase (38-126) U/L Total Protein (6.3-8.2) g/dL Albumin (3.5-5.0) g/dL Disposition Clinical Impression: Hypoglycemic event due to diabetes Disposition: ADMITTED IP TO THIS HOSP Condition: Stable Instructions (If sedation given, give patient instructions): Hypoglycemia in a Person with Diabetes (ED) Additional Instructions: please follow with your packaging supervisor regarding these recurrent episodes of hypoglycemia Is patient prescribed a controlled substance at d/c from ED?: No Referrals: None,Stated [Primary Care Provider] - 1-2 days Nick Lassiter MD [REFERRING] - 1-2 days Jordan Thurman MD [STAFF PHYSICIAN] - 1-2 days Time of Disposition: 14:41
[2020-07-12 14:03] LABS: Basophils % (A) 1 %; Eosinophils # (A) 0.1 k/uL (0-0.7); Eosinophils % (A) 2 %; HCT 47.5 % (39.0-53.0); HGB 16.2 gm/dL (13.0-17.5); Lymphocytes % (A) 42 %; MCH 30.1 pg (25.0-35.0); MCHC 34.2 g/dL (31.0-37.0); Mean Platelet Volume 7.1; Monocytes # (A) 0.3 k/uL (0-1.0); Monocytes % (A) 5 %; Neutrophils # (A) 2.4 k/uL (1.3-7.7); Neutrophils % (A) 48 %; Platelet Count 342 k/uL (150-450); RDW 13.2 % (11.5-15.5); WBC 4.9 k/uL (3.8-10.6)
[2020-07-12 14:12] LABS: ALT 19 U/L (4-49); AST 28 U/L (17-59); African American GFR (CKD) >90 (>60 ml/min/1.73 sqM); Albumin 4.3 g/dL (3.5-5.0); Alkaline Phosphatase 73 U/L (38-126); Anion Gap 9 mmol/L; Blood Urea Nitrogen 8 mg/dL (9-20); Calcium 9.5 mg/dL (8.4-10.2); Carbon Dioxide 27 mmol/L (22-30); Chloride 102 mmol/L (98-107); Glucose 181 mg/dL (74-99); Magnesium 1.7 mg/dL (1.6-2.3); Non-African American GFR(CKD) >90 (>60 ml/min/1.73 sqM); Potassium 3.8 mmol/L (3.5-5.1); Sodium 138 mmol/L (137-145); Total Bilirubin 0.8 mg/dL (0.2-1.3); Total Protein 7.1 g/dL (6.3-8.2)
--- NOTE | 2020-07-12 14:38 | CT ---
EXAMINATION TYPE: CT brain wo con DATE OF EXAM: 07/12/2020 COMPARISON: 12/04/2019 HISTORY: Low blood sugar, shaking CT DLP: 1114.[address] of the brain was performed. The ventricles, basal cisterns and sulci overlying the cerebral convexities demonstrate a normal appe arance. There is no evidence for intracranial hemorrhage or sulcal effacement. No mass effects are seen. Osseous calvarium is intact. Mild chronic paranasal sinusitis noted. If symptoms persist consider MRI as clinically warranted. IMPRESSION: 1. No acute intracranial process is seen at this time.
[2020-07-12 15:22] VITALS: BP 115/84; PULSE 89; RESP 16
== END 2020-07-12 15:27 | disposition other institution (70) ==
LOC: EC 13:13
DX: E10.649 Type 1 diabetes mellitus with hypoglycemia without coma (principal); Z79.4 Long term (current) use of insulin; Z88.1 Allergy status to other antibiotic agents; Z88.2 Allergy status to sulfonamides; Z86.14 Personal history of Methicillin resistant Staphylococcus aureus infection
CPT/HCPCS: 36415; 70450; 80053; 83605; 83735; 85025; 93005; 96360; 99285

== ENCOUNTER 2020-12-13 | Emergency (ER) | payer MEDICARE, OTHER ==
--- NOTE | 2020-12-13 06:15 | ED ---
Skin/Abscess/FB HPI - General Chief complaint: Skin/Abscess/Foreign Body Stated complaint: rash Time Seen by Provider: 12/13/20 06:04 Source: patient Mode of arrival: ambulatory - History of Present Illness Initial comments: 20yo male iwth hx of DM1, cystic fibrosis presenting for skin lesions. patient states for the past few days he has noticed very itchy lesions in the fingers, and up right arm, some in groin. he states itching increases at night. he is concerned he has a parasite or scabies. denies abdominal pain, nausea, vomiting, diarrhea, fevers, travel, increased thirst/urinations, denies uncontrolled glucose. Patient appears well on arrival in no acute distress. Accompanied by his roommate. - Related Data Home Medications Medication Instructions Recorded Confirmed Lipase/Protease/Amylase [Joselo Smith 120,000 units PO QID 06/15/15 03/12/20 24,000 Units Capsule] Acetaminophen Tab [Tylenol Tab] 1,000 mg PO Q6HR PRN 12/11/19 03/12/20 Elexacaftor/Tezacaftor/Ivacaft 1 tab PO HS 12/11/19 03/12/20 [Trikafta 100/50/75 mg-150 mg] Elexacaftor/Tezacaftor/Ivacaft 2 tab PO DAILY 12/11/19 03/12/20 [Trikafta 100/50/75 mg-150 mg] Insulin Glargine,Hum.rec.anlog 50 unit SQ HS 12/11/19 03/12/20 [Lantus Solostar] Insulin Lispro [Admelog] See Protocol SQ AC-TID 12/11/19 03/12/20 Insuln Asp Prt/Insulin Aspart 30 unit SQ HS 12/11/19 03/12/20 [NovoLOG MIX 70-30 VIAL] Previous Rx's Medication Instructions Recorded Azithromycin [Zithromax Z-pack (6 0 mg PO DIRECTED #1 pack 06/15/20 tabs)] Permethrin 5% Cream [Elimite] 1 applic TOPICAL ONCE 2 Days #30 12/13/20 cream..g. Allergies Allergy/AdvReac Type Severity Reaction Status Date / Time sulfamethoxazole Allergy Unknown Verified 12/13/20 05:20 [From Bactrim] trimethoprim [From Bactrim] Allergy Unknown Verified 12/13/20 05:20 vancomycin Allergy Rash/Hives Verified 12/13/20 05:20 Review of Systems ROS Statement: Those systems with pertinent positive or pertinent negative responses have been documented in the HPI. ROS Other: All systems not noted in ROS Statement are negative. Past Medical History Past Medical History: Diabetes Mellitus Additional Past Medical History / Comment(s): Cystic Fibrosis History of Any Multi-Drug Resistant Organisms: MRSA Date of last positivie culture/infection: 05/16/19 MDRO Source:: sputum Past Surgical History: No Surgical Hx Reported Additional Past Surgical History / Comment(s): feeding tube, port (removed) Past Anesthesia/Blood Transfusion Reactions: No Reported Reaction Past Psychological History: No Psychological Hx Reported Smoking Status: Never smoker Past Alcohol Use History: Occasional Past Drug Use History: None Reported - Past Family History Father History Unknown: Yes Additional Family Medical History / Comment(s): States that he was adopted, but says that he thinks there isnt any family history on either side. Mother Family Medical History: No Reported History Additional Family Medical History / Comment(s): Pt is adopted but has had contact with natural mother and she is healthy. General Exam - General Exam Comments Initial Comments: General: The patient is awake and alert, in no distress, and does not appear acutely ill. Eye: Pupils are equal, round and reactive to light, extra-ocular movements are intact. No nystagmus. There is normal conjunctiva bilaterally. No signs of icterus. Cardiovascular: There is a regular rate and rhythm. No murmur, rub or gallop is appreciated. Respiratory: Lungs are clear to auscultation, respirations are non-labored, breath sounds are equal. No wheezes, stridor, rales, or rhonchi. Gastrointestinal: Soft, non-distended, non-tender abdomen without masses or organomegaly noted. There is no rebound or guarding present. Musculoskeletal: Normal ROM, no tenderness. Strength 5/5. Sensation intact. Radial pulses equal bilaterally 2+. Neurological: A&O x 3. CN II-XII intact, There are no obvious motor or sensory deficits. Coordination appears grossly intact. Speech is normal. Skin: Skin is warm and dry, Linear burrows between fingers, small areas of excoriation on right upper arm random distribution. Psychiatric: Cooperative, appropriate mood & affect, normal judgment. Course Vital Signs 12/13/20 05:16 Temperature 97.4 F L Pulse Rate 85 Respiratory 18 Rate Blood Pressure 117/64 O2 Sat by Pulse 99 Oximetry Medical Decision Making - Medical Decision Making Findings on exam and with history most consistent with likey scabies infection. pt will be treated with topical medications and discharged with pcp f/u. patient agreeable to this care plan and discharge at this time. Disposition Clinical Impression: Infestation (skin) Disposition: HOME SELF-CARE Condition: Good Instructions (If sedation given, give patient instructions): Scabies (ED) Additional Instructions: Please use medication as discussed. Please follow-up with family doctor in the next 2 days. Please return to emergency room if the symptoms increase or worsen or for any other concerns. Prescriptions: Permethrin 5% Cream [Elimite] 1 applic TOPICAL ONCE 2 Days #30 cream..g. Is patient prescribed a controlled substance at d/c from ED?: No Referrals: None,Stated [Primary Care Provider] - 1-2 days Time of Disposition: 06:14
== END 2020-12-13 06:39 | disposition home or self-care (01) ==
CPT/HCPCS: 99282; 99283

== ENCOUNTER 2020-12-13 21:24 | Emergency (ER) | payer MEDICARE, OTHER ==
[2020-12-13 21:35] VITALS: TEMP 98.4
--- NOTE | 2020-12-13 23:06 | ED ---
Skin/Abscess/FB HPI - General Chief complaint: Skin/Abscess/Foreign Body Stated complaint: Bug bites,Revisit Time Seen by Provider: 12/13/20 22:43 Source: patient Mode of arrival: ambulatory Limitations: no limitations - History of Present Illness Initial comments: Patient is a 20-year-old male presenting to the emergency Department for recheck of his rash. Patient states she was in the ER yesterday was diagnosed with scabies, given cream to use which he did use today. Patient states he does not feel like it is helping and wanted a recheck. Patient stated he also has some irritation around his PEG tube site. He denies any nausea or vomiting, no fevers or chills. He denies any significant abdominal pain. Patient is also complaining of left foot pain after he stepped on something about 2 weeks ago, has been having drainage from the area, pain when he walks. He has no further complaints at this time. - Related Data Home Medications Medication Instructions Recorded Confirmed Lipase/Protease/Amylase [Joselo Smith 120,000 units PO QID 06/15/15 03/12/20 24,000 Units Capsule] Acetaminophen Tab [Tylenol Tab] 1,000 mg PO Q6HR PRN 12/11/19 03/12/20 Elexacaftor/Tezacaftor/Ivacaft 1 tab PO HS 12/11/19 03/12/20 [Trikafta 100/50/75 mg-150 mg] Elexacaftor/Tezacaftor/Ivacaft 2 tab PO DAILY 12/11/19 03/12/20 [Trikafta 100/50/75 mg-150 mg] Insulin Glargine,Hum.rec.anlog 50 unit SQ HS 12/11/19 03/12/20 [Lantus Solostar] Insulin Lispro [Admelog] See Protocol SQ AC-TID 12/11/19 03/12/20 Insuln Asp Prt/Insulin Aspart 30 unit SQ HS 12/11/19 03/12/20 [NovoLOG MIX 70-30 VIAL] Previous Rx's Medication Instructions Recorded Azithromycin [Zithromax Z-pack (6 0 mg PO DIRECTED #1 pack 06/15/20 tabs)] Cephalexin [Keflex] 500 mg PO Q6HR 5 Days #20 cap 12/13/20 Permethrin 5% Cream [Elimite] 1 applic TOPICAL ONCE 2 Days #30 12/13/20 cream..g. Allergies Allergy/AdvReac Type Severity Reaction Status Date / Time sulfamethoxazole Allergy Unknown Verified 12/13/20 21:33 [From Bactrim] trimethoprim [From Bactrim] Allergy Unknown Verified 12/13/20 21:33 vancomycin Allergy Rash/Hives Verified 12/13/20 21:33 Review of Systems ROS Statement: Those systems with pertinent positive or pertinent negative responses have been documented in the HPI. ROS Other: All systems not noted in ROS Statement are negative. Past Medical History Past Medical History: Diabetes Mellitus Additional Past Medical History / Comment(s): Cystic Fibrosis, History of Any Multi-Drug Resistant Organisms: MRSA Date of last positivie culture/infection: 05/16/19, MDRO Source:: sputum Past Surgical History: No Surgical Hx Reported Additional Past Surgical History / Comment(s): feeding tube, port (removed), Past Anesthesia/Blood Transfusion Reactions: No Reported Reaction Past Psychological History: No Psychological Hx Reported Smoking Status: Never smoker Past Alcohol Use History: Occasional Past Drug Use History: None Reported - Past Family History Father History Unknown: Yes Additional Family Medical History / Comment(s): States that he was adopted, but says that he thinks there isnt any family history on either side. Mother Family Medical History: No Reported History Additional Family Medical History / Comment(s): Pt is adopted but has had contact with natural mother and she is healthy. General Exam - General Exam Comments Initial Comments: GENERAL: Patient is well-developed and well-nourished. Patient is nontoxic and in no acute distress. HEAD: Atraumatic, normocephalic. EYES: Pupils equal round and reactive to light, extraocular movements intact, sclera anicteric, conjunctiva are normal. Eyelids were unremarkable. ENT: TMs normal, nares patent, oropharynx clear without exudates. Moist mucous membranes. NECK: Normal range of motion, supple without lymphadenopathy or JVD. LUNGS: Unlabored respirations. Breath sounds clear to auscultation bilaterally and equal. No wheezes rales or rhonchi. HEART: Regular rate and rhythm without murmurs, rubs or gallops. ABDOMEN: Soft, nontender, normoactive bowel sounds. No guarding, no rebound. No masses appreciated. PEG tube present, no signs of surrounding erythema or infection. : Deferred MUSCULOSKELETAL: Normal extremities with adequate strength and normal range of motion, no pitting or edema. No clubbing or cyanosis. NEUROLOGICAL: Patient is alert and oriented x 3. Motor and sensory are also intact. Cranial nerves II through XII grossly intact. Symmetrical smile. Normal speech, normal gait. PSYCH: Normal mood, normal affect. SKIN: Warm, Dry, normal turgor. He should has scattered erythematous macules, white in color scabs that are consistent with scabies spread throughout his body. Majority is on his arms. Pruritic. Patient also has a puncture site on the plantar surface of his left foot, lateral. There is some mild drainage from this area, no erythema or swelling. Limitations: no limitations Course Vital Signs 12/13/20 12/13/20 21:27 23:10 Temperature 98.4 F Pulse Rate 98 90 Respiratory 18 16 Rate Blood Pressure 107/72 112/71 O2 Sat by Pulse 98 97 Oximetry Medical Decision Making - Medical Decision Making Patient is a 20-year-old male presenting for recheck of his scabies. He was seen here yesterday, diagnosed with scabies, he did a treatment today. On reexam today, his rash looks similar in nature to described as yesterday. No fevers. I discussed with patient that the medication does take time to work, he can repeat in one week if symptoms persist. Recent will be given antibiotic for possible left foot cellulitis after he stepped on a piece of glass 2 weeks ago. Patient is stable for discharge and he is in agreement with this plan of care. He'll follow up with his regular doctor. Return parameters were discussed with and they verbalized understanding. Disposition Clinical Impression: Infestation (skin), Left foot pain Disposition: HOME SELF-CARE Condition: Stable Instructions (If sedation given, give patient instructions): Scabies (ED) Additional Instructions: Please return to the Emergency Department if symptoms worsen or any other concerns. Repeat in one week if rash persists. Take antibiotic as prescribed for possible infection in the foot. Prescriptions: Cephalexin [Keflex] 500 mg PO Q6HR 5 Days #20 cap Is patient prescribed a controlled substance at d/c from ED?: No Referrals: None,Stated [Primary Care Provider] - 1-2 days
[2020-12-13 23:11] VITALS: BP 112/71; PULSE 90; RESP 16
== END 2020-12-13 23:21 | disposition home or self-care (01) ==
LOC: EC 21:24
DX: B88.9 Infestation, unspecified (principal); M79.672 Pain in left foot; E11.9 Type 2 diabetes mellitus without complications; Z79.4 Long term (current) use of insulin; Z88.1 Allergy status to other antibiotic agents; Z88.2 Allergy status to sulfonamides
CPT/HCPCS: 99283

== ENCOUNTER 2021-04-10 17:00 | Emergency (ER) | payer MEDICARE, OTHER ==
[2021-04-10 17:04] VITALS: TEMP 97.7
[2021-04-10] MEDS ORDERED: PROPARACAINE 0.5% OPHTH DROPS 15 ML BTL RIGHT EYE STA (17:20)
[2021-04-10] MEDS ORDERED: FLUORESCEIN STRIPS 1 MG STRIP LEFT EYE ONE (17:22)
[2021-04-10] MEDS ORDERED: GENTAMICIN 0.3% OPHTH DROPS 5 ML BTL RIGHT EYE STA (17:55)
--- NOTE | 2021-04-10 18:00 | ED ---
Eye Problem HPI - General Chief complaint: Eye Problems Stated complaint: eye injury Time Seen by Provider: 04/10/21 17:13 Source: patient Mode of arrival: wheelchair Limitations: no limitations - History of Present Illness Initial comments: 20-year-old male presents emergency Department with a chief complaint of right eye pain. Patient reports he was attempting to remove it Here with tweezers yesterday. He states he instead injured his right eye. He states it is painful to open it but denies any blurry vision. States he also noticed some clear watery discharge. He reports redness in the eye. However, he denies any pain with extraocular movements. Severity: moderate Severity scale (1-10): 5 If Pain, Quality: sharp Consistency: constant - Related Data Home Medications Medication Instructions Recorded Confirmed Lipase/Protease/Amylase [Creon Dr 120,000 units PO QID 06/15/15 03/12/20 24,000 Units Capsule] Acetaminophen Tab [Tylenol Tab] 1,000 mg PO Q6HR PRN 12/11/19 03/12/20 Elexacaftor/Tezacaftor/Ivacaft 1 tab PO HS 12/11/19 03/12/20 [Trikafta 100/50/75 mg-150 mg] Elexacaftor/Tezacaftor/Ivacaft 2 tab PO DAILY 12/11/19 03/12/20 [Trikafta 100/50/75 mg-150 mg] Insulin Glargine,Hum.rec.anlog 50 unit SQ HS 12/11/19 03/12/20 [Lantus Solostar] Insulin Lispro [Admelog] See Protocol SQ AC-TID 12/11/19 03/12/20 Insuln Asp Prt/Insulin Aspart 30 unit SQ HS 12/11/19 03/12/20 [NovoLOG MIX 70-30 VIAL] Previous Rx's Medication Instructions Recorded Azithromycin [Zithromax Z-pack (6 0 mg PO DIRECTED #1 pack 06/15/20 tabs)] Cephalexin [Keflex] 500 mg PO Q6HR 5 Days #20 cap 12/13/20 Permethrin 5% Cream [Elimite] 1 applic TOPICAL ONCE 2 Days #30 12/13/20 cream..g. Allergies Allergy/AdvReac Type Severity Reaction Status Date / Time sulfamethoxazole Allergy Unknown Verified 04/10/21 17:01 [From Bactrim] trimethoprim [From Bactrim] Allergy Unknown Verified 04/10/21 17:01 vancomycin Allergy Rash/Hives Verified 04/10/21 17:01 Review of Systems ROS Statement: Those systems with pertinent positive or pertinent negative responses have been documented in the HPI. ROS Other: All systems not noted in ROS Statement are negative. Past Medical History Past Medical History: Diabetes Mellitus Additional Past Medical History / Comment(s): Cystic Fibrosis, History of Any Multi-Drug Resistant Organisms: MRSA Date of last positivie culture/infection: 05/16/19, MDRO Source:: sputum Past Surgical History: No Surgical Hx Reported Additional Past Surgical History / Comment(s): feeding tube, port (removed), Past Anesthesia/Blood Transfusion Reactions: No Reported Reaction Past Psychological History: No Psychological Hx Reported Smoking Status: Never smoker Past Alcohol Use History: Occasional Past Drug Use History: None Reported - Past Family History Father History Unknown: Yes Additional Family Medical History / Comment(s): States that he was adopted, but says that he thinks there isnt any family history on either side. Mother Family Medical History: No Reported History Additional Family Medical History / Comment(s): Pt is adopted but has had contact with natural mother and she is healthy. General Exam Limitations: no limitations General appearance: alert, in no apparent distress Head exam: Present: atraumatic, normocephalic, normal inspection Eye exam: Present: normal appearance, PERRL, EOMI. Absent: other (Large corneal abrasion over the iris. Negative Rosy sign. Sparing of the limbus.) Pupils: Present: normal accommodation ENT exam: Present: normal exam, normal oropharynx, mucous membranes moist Neck exam: Present: normal inspection, full ROM. Absent: tenderness Respiratory exam: Present: normal lung sounds bilaterally. Absent: respiratory distress Cardiovascular Exam: Present: regular rate, normal rhythm, normal heart sounds. Absent: systolic murmur Extremities exam: Present: normal inspection, full ROM. Absent: tenderness Back exam: Present: normal inspection, full ROM. Absent: tenderness, CVA tenderness (R), CVA tenderness (L) Neurological exam: Present: alert, oriented X3 Psychiatric exam: Present: normal affect, normal mood Skin exam: Present: warm, dry, intact, normal color Course Vital Signs 04/10/21 17:01 Temperature 97.7 F Pulse Rate 95 Respiratory 16 Rate Blood Pressure 111/77 O2 Sat by Pulse 97 Oximetry Medical Decision Making - Medical Decision Making 20-year-old male presents to the emergency department with chief complaint right eye pain. Physical examination, he has watery discharge. Conjunctival in jections. [place]mana lamp examination reveals a large corneal abrasion over the iris. No signs of foreign body. Negative Rosy sign. Patient will be started on gentamicin drops. Ophthalmology follow-up. Dr. Cash also examined the patient and is in agreement with the treatment plan. Disposition Clinical Impression: Corneal abrasion, right Disposition: HOME SELF-CARE Condition: Stable Instructions (If sedation given, give patient instructions): Corneal Abrasion (DC) Additional Instructions: Please return to the Emergency Department if symptoms worsen or any other concerns. They prescribed medication as directed. Follow with an croze cutter. Apply 2 drops to the right eye every 6 hours. Is patient prescribed a controlled substance at d/c from ED?: No Referrals: None,Stated [Primary Care Provider] - 1-2 days Time of Disposition: 18:00
[2021-04-10 18:15] VITALS: BP 104/77; PULSE 96; RESP 20
== END 2021-04-10 18:18 | disposition home or self-care (01) ==
LOC: EC 17:00
DX: S05.01XA Injury of conjunctiva and corneal abrasion without foreign body, right eye, initial encounter (principal); E11.9 Type 2 diabetes mellitus without complications; Z88.2 Allergy status to sulfonamides; Z88.1 Allergy status to other antibiotic agents; Z79.4 Long term (current) use of insulin; W27.2XXA Contact with scissors, initial encounter
CPT/HCPCS: 99283